=== PATIENT | female | born 1940 | race Caucasian/White ===

== ENCOUNTER 2020-02-13 07:01 | Outpatient (REF) | payer MEDICARE, SELFPAY ==
[2020-02-13 07:47] LABS: MANUAL DIFF FLAG NO
[2020-02-13 07:57] LABS: Basophils Absolute Auto 0.1 X10*3/uL (0.0-0.2); Basophils Percent Auto 0.8 % (0-2); Eosinophils Absolute Auto 0.1 X10*3/uL (0.0-0.4); Eosinophils Percent Auto 1.6 % (0-4); Hematocrit 37.4 % (37-47); Hemoglobin 11.5 g/dl (12.0-16.0); Imm Gran Abs Auto 0.02 X10*3/uL (0.00-0.03); Imm Gran Pct Auto 0.3 % (0.0-0.4); Lymphocytes Absolute Auto 1.9 X10*3/uL (1.2-4.9); Lymphocytes Percent Auto 31.2 % (20-40); Mean Corpuscular HGB Conc 30.7 g/dl (31.0-35.0); Mean Corpuscular Hemoglobin 23.8 pg (27.0-33.0); Mean Corpuscular Volume 77.3 fL (80-98); Monocytes Absolute Auto 0.6 X10*3/uL (0.1-1.2); Monocytes Percent Auto 10.5 % (2-11); Neutrophils Absolute Auto 3.4 X10*3/uL (2.0-8.3); Neutrophils Percent Auto 55.6 % (45-73); Platelet Count 450 X10*3/uL (160-400); Red Blood Count 4.84 X10*6/uL (4.20-5.50); Red Cell Distribution Width 17.9 % (11.0-16.0); White Blood Count 6.1 X10*3/uL (4.8-10.8)
[2020-02-13 08:31] LABS: Alanine Aminotransferase 10 U/L (0-31); Albumin Level 3.8 g/dL (3.5-5.0); Alkaline Phosphatase 82 U/L (39-117); Anion Gap 14 (12-20); Aspartate Amino Transferase 13 U/L (5-31); Bilirubin Total 0.5 mg/dL (0.0-1.0); Blood Urea Nitrogen 23 mg/dL (9-16); Calcium 9.2 mg/dL (8.4-10.2); Carbon Dioxide 28 mmol/L (22-29); Chloride 98 mmol/L (96-108); Cholesterol 210 mg/dL; Estimated Glomerular Filt Rate 57; Glucose Fasting 97 mg/dL (60-99); HDL Cholesterol 68 mg/dL; LDL Cholesterol Calculated 132 mg/dl; Sodium 136 mmol/L (135-145); Total Protein 6.4 g/dL (6.5-8.0); Triglycerides 54 mg/dL
[2020-02-13 09:37] LABS: Estimated Average Glucose 111 mg/dL; Hemoglobin A1c % 5.5 %
== END 2020-02-13 07:02 | disposition home or self-care (01) ==
LOC: HO.LAB 07:01
PROVIDERS: PCP Internal Medicine; Visit Provider Internal Medicine
DX: D72.828 Other elevated white blood cell count (principal); K21.9 Gastro-esophageal reflux disease without esophagitis; I10 Essential (primary) hypertension; R73.09 Other abnormal glucose; Z00.00 Encounter for general adult medical examination without abnormal findings
CPT/HCPCS: 36415; 80053; 80061; 83036; 85025

== ENCOUNTER 2020-04-13 07:45 | Outpatient (REF) | payer MEDICARE, SELFPAY ==
--- NOTE | ~2020-04-13 | MM_ITS ---
EXAMINATION: MM SCREENING DIGITAL BREAST TOMOSYNTHESIS, BILATERAL CLINICAL INFORMATION: Screening. Asymptomatic. The lifetime risk of breast cancer based on the Tyrer-Cuzick Model is 4%. COMPARISON: Mammography: 04/08/2019, 04/06/2018, 03/05/2017 TECHNIQUE: Digital breast tomosynthesis is performed in both the craniocaudal and mediolateral oblique views along with computer-aided detection (CAD). Synthesized 2D images are generated from the tomosynthesis. FINDINGS: There are scattered areas of fibroglandular density (ACR BI-RADS breast composition Category b). There are no significant masses, abnormal calcifications, or other abnormalities. No significant changes from prior exams. MM/MM tomosynthesis screening BI IMPRESSION: No mammographic evidence of malignancy. ASSESSMENT: BI-RADS 1: Negative RECOMMENDATION: Routine annual mammography screening. This patient's information was entered into a reminder system with a target due date for their next mammogram.
== END 2020-04-13 07:46 | disposition home or self-care (01) ==
LOC: HO.MAMMO 07:45
PROVIDERS: PCP Internal Medicine; Visit Provider Internal Medicine
DX: Z12.31 Encounter for screening mammogram for malignant neoplasm of breast (principal)
CPT/HCPCS: 77063; 77067

== ENCOUNTER 2020-09-17 15:06 | Outpatient (REF) | payer MEDICARE, SELFPAY ==
[2020-09-17 15:22] LABS: Glucose Urine UA NEG (NEG); Leukocyte Esterase Urine 3+ (NEG); Nitrite Urine POS (NEG); Specific Gravity - Urine 1.015 (1.005-1.025); Urine Blood TRACE (NEG); Urine Ketones NEG (NEG); Urine Protein NEG (NEG-TRACE)
[2020-09-17 15:23] LABS: Appearance Urine HAZY; Color Urine YELLOW
[2020-09-17 15:36] LABS: Bacteria Urine 3+ /LPF; Mucus Urine 1+ /LPF; RBC Urine 0-2 /HPF (0); Squamous Epithelial Cell Urine 1+ /LPF; WBC Urine 50-75 /HPF (0-4)
== END 2020-09-17 15:07 | disposition home or self-care (01) ==
LOC: HO.LNP 15:06
PROVIDERS: Visit Provider Internal Medicine
DX: N30.00 Acute cystitis without hematuria (principal)
CPT/HCPCS: 81001; 87086; 87088; 87186

== ENCOUNTER 2020-10-01 13:28 | Outpatient (REF) | payer MEDICARE, SELFPAY ==
[2020-10-01 14:15] LABS: Glucose Urine UA NEG (NEG); Leukocyte Esterase Urine 3+ (NEG); Nitrite Urine NEG (NEG); Urine Blood TRACE (NEG); Urine Ketones NEG (NEG); Urine Protein TRACE MG/DL (NEG-TRACE)
[2020-10-01 14:45] LABS: Color Urine YELLOW
[2020-10-01 14:46] LABS: Appearance Urine HAZY
[2020-10-01 15:06] LABS: Bacteria Urine 4+ /LPF; Squamous Epithelial Cell Urine 1+ /LPF; WBC Urine 50-75 /HPF (0-4)
== END 2020-10-01 13:29 | disposition home or self-care (01) ==
LOC: HO.LNP 13:28
PROVIDERS: Visit Provider Internal Medicine
DX: Z51.89 Encounter for other specified aftercare (principal)
CPT/HCPCS: 81001; 87086; 87088; 87186

== ENCOUNTER 2020-10-19 10:49 | Outpatient (REF) | payer MEDICARE, SELFPAY ==
[2020-10-19 11:31] LABS: Glucose Urine UA NEG (NEG); Leukocyte Esterase Urine 3+ (NEG); Nitrite Urine NEG (NEG); PH 7.5 (5.0-8.0); Urine Blood NEG (NEG); Urine Ketones NEG (NEG); Urine Protein NEG (NEG-TRACE)
[2020-10-19 11:44] LABS: Appearance Urine CLEAR; Color Urine COLORLESS
[2020-10-19 12:06] LABS: Bacteria Urine 1+ /LPF; RBC Urine 0 /HPF (0); Squamous Epithelial Cell Urine 3+ /LPF
== END 2020-10-19 10:50 | disposition home or self-care (01) ==
LOC: HO.LNP 10:49
PROVIDERS: Visit Provider Internal Medicine
DX: Z51.89 Encounter for other specified aftercare (principal)
CPT/HCPCS: 81001; 87086

== ENCOUNTER 2020-10-24 14:00 | Outpatient (RCR) | payer MEDICARE, SELFPAY | END 2020-10-24 15:14 | disposition home or self-care (01) | LOC: HO.PTCHIC 14:00 | PROVIDERS: PCP Internal Medicine; Visit Provider Physician Assistant | DX: S86.011D Strain of right Achilles tendon, subsequent encounter (principal) | CPT/HCPCS: 97110; 97112; 97140; 97162 ==

== ENCOUNTER 2020-11-09 10:49 | Outpatient (REF) | payer MEDICARE, SELFPAY ==
--- NOTE | ~2020-11-09 | XR_ITS ---
EXAMINATION: BILATERAL KNEE X-RAY CLINICAL INFORMATION: Pain COMPARISON: Previous exams most recent April 2019 right and August 2016 left TECHNIQUE: 3 views of both knees FINDINGS: Right: There is a right knee replacement. No fracture or dislocation is seen. There is lucency adjacent to the anterior femoral component on the lateral view that appears unchanged. There are small osteophytes at the quadriceps tendon insertion and patellar tendon origin. There are soft tissue ossifications superior to the patella and joint effusion. Left: There is a left knee replacement. No fracture or dislocation is seen. There is question of cystic or erosive change adjacent to the patellar component. There are small osteophytes at the quadriceps tendon insertion patellar tendon origin. There are soft tissue ossifications inferior to the patella. There is a joint effusion. XR/XR knee LT 2V IMPRESSION: Bilateral knee replacements. Right: Stable lucency adjacent to the anterior femoral component seen on the lateral view. Soft tissue ossifications superior to the patella and joint effusion. Left: Question cystic change or lucency adjacent to the patellar component. Soft tissue ossifications inferior to the patella and joint effusion.
--- NOTE | ~2020-11-09 | XR_ITS ---
EXAMINATION: BILATERAL KNEE X-RAY CLINICAL INFORMATION: Pain COMPARISON: Previous exams most recent April 2019 right and August 2016 left TECHNIQUE: 3 views of both knees FINDINGS: Right: There is a right knee replacement. No fracture or dislocation is seen. There is lucency adjacent to the anterior femoral component on the lateral view that appears unchanged. There are small osteophytes at the quadriceps tendon insertion and patellar tendon origin. There are soft tissue ossifications superior to the patella and joint effusion. Left: There is a left knee replacement. No fracture or dislocation is seen. There is question of cystic or erosive change adjacent to the patellar component. There are small osteophytes at the quadriceps tendon insertion patellar tendon origin. There are soft tissue ossifications inferior to the patella. There is a joint effusion. XR/XR knee RT 2V IMPRESSION: Bilateral knee replacements. Right: Stable lucency adjacent to the anterior femoral component seen on the lateral view. Soft tissue ossifications superior to the patella and joint effusion. Left: Question cystic change or lucency adjacent to the patellar component. Soft tissue ossifications inferior to the patella and joint effusion.
--- NOTE | ~2020-11-09 | XR_ITS ---
EXAMINATION: BILATERAL KNEE X-RAY CLINICAL INFORMATION: Pain COMPARISON: Previous exams most recent April 2019 right and August 2016 left TECHNIQUE: 3 views of both knees FINDINGS: Right: There is a right knee replacement. No fracture or dislocation is seen. There is lucency adjacent to the anterior femoral component on the lateral view that appears unchanged. There are small osteophytes at the quadriceps tendon insertion and patellar tendon origin. There are soft tissue ossifications superior to the patella and joint effusion. Left: There is a left knee replacement. No fracture or dislocation is seen. There is question of cystic or erosive change adjacent to the patellar component. There are small osteophytes at the quadriceps tendon insertion patellar tendon origin. There are soft tissue ossifications inferior to the patella. There is a joint effusion. XR/XR knee standing BI IMPRESSION: Bilateral knee replacements. Right: Stable lucency adjacent to the anterior femoral component seen on the lateral view. Soft tissue ossifications superior to the patella and joint effusion. Left: Question cystic change or lucency adjacent to the patellar component. Soft tissue ossifications inferior to the patella and joint effusion.
== END 2020-11-09 10:50 | disposition home or self-care (01) ==
LOC: HO.HOSX 10:49
PROVIDERS: Visit Provider Orthopaedic Surgery
DX: M25.361 Other instability, right knee (principal); M25.362 Other instability, left knee; M25.561 Pain in right knee; M25.562 Pain in left knee
CPT/HCPCS: 73560; 73565; 99212

== ENCOUNTER 2021-01-10 10:00 | Outpatient (RCR) | payer MEDICARE, SELFPAY ==
--- NOTE | 2020-11-20 11:29 | MHC.PT.EP ---
[facility] [place] Office [place] Office [place] Office [address] [phone] F: [phone] F: [phone] F: [phone] F: [phone] Physical Therapy Plan of Care Date of Evaluation: Date of Surgery: Diagnosis: This is a 80 yo female presenting to skilled PT with a script for instability of R knee. Assessment: This is a 80 yo female presenting to skilled PT with a script for instability of R knee. Patient was here recently due to R Achilles rupture. This injury occurred over the summer. She rehabbed well however the initial Achilles injury caused an increase in R knee pain. She has a history of B total knee replacements. Her R knee was done in 2018. She is being followed by [facility] ortho who took x-rays, reported MCL laxity, provided kolby pyle brace and referred to PT for 2 months before following up with them. Pain is located medial knee joint, described as sharp pain. Patient reporting that knee alignment is lateral and her knee hyperextends. Functionally, she reports inability to walk normally, performing stairs with reciprocal gait pattern and needs to use a motorized cart when in the grocery store. Assessment reveals pain that ranges up to a 7/10. She demos decreased R knee ROM, decreased BLE strength, impaired gait pattern with near LOB on a few occasions at eval, impaired joint mobility with excessive tibial ER, tender along ITB and medial knee joint as well as gross functional decline with all weight bearing activities. She is a good candidate for skilled PT 2x/wk for 5wks. Frequency and Duration: The patient will be seen 2x/wk for 5wks Short Term Goals: I in HEP Demo proper squatting techniques without cuing Tolerate walking in grocery store without need to ride the cart Fpc Goals: Report sleeping through the night without waking from knee pain Patient will demo WNL ROM and strength Improve pain to no more than a 2/10 at the worst Perform reciprocal gait on stairs Treatment Plan: Modalities to reduce pain, spasms and effusion. Manual therapy to restore motion and function. Therapeutic exercise to improve strength and flexibility. Neuromuscular re-education for posture and balance. Therapeutic activities to return to functional activities of daily living. Electronically signed by: Patt Casper PT Please sign and return to therapist. Thank you for your referral.
--- NOTE | 2021-01-21 17:11 | MHC.PT.DC ---
[facility] [place] Office [place] Office [place] Office [address] [phone] F: [phone] F: [phone] F: [phone] F: [phone] Physical Therapy Discharge Report Diagnosis: This is a 80 yo female presenting to skilled PT with a script for instability of R knee. Date of Surgery: Date of Evaluation: 11/20/20 Date of Discharge: 01/21/21 Treatments to Date: 12 Cancellations to Date: 0 No Shows to Date: 0 Discharge Status: Independent with HEP Patient Elected to Stop Physician Discontinued Tx Discharge Summary: Patient I in program. Saw ortho due to continuing concerning symptoms. She called and reported impending surgery in April. Hold PT at this time and DC to HEP. Electronically signed by: Patt Casper PT Please sign and return to therapist. Thank you for your referral.
== END 2021-01-21 17:12 | disposition home or self-care (01) ==
LOC: HO.PTCHIC 10:00
PROVIDERS: PCP Internal Medicine; Visit Provider Orthopaedic Surgery
DX: M25.361 Other instability, right knee (principal)
CPT/HCPCS: 97110; 97140; 97162

== ENCOUNTER → 2021-01-17 14:24 | Outpatient (BNVA) | payer MEDICARE, SELFPAY | PROVIDERS: PCP Internal Medicine; Visit Provider Orthopaedic Surgery | DX: M25.369 Other instability, unspecified knee (principal); Z96.651 Presence of right artificial knee joint | CPT/HCPCS: 99212 ==

== ENCOUNTER 2021-02-04 14:42 | Outpatient (REF) | payer MEDICARE, SELFPAY ==
[2021-02-04 15:12] LABS: Appearance Urine CLOUDY; Color Urine ORANGE; Glucose Urine UA NEG (NEG); Leukocyte Esterase Urine 2+ (NEG); Nitrite Urine POS (NEG); PH 6.5 (5.0-8.0); Specific Gravity - Urine 1.015 (1.005-1.025); Urine Blood 1+ (NEG); Urine Ketones NEG (NEG); Urine Protein TRACE MG/DL (NEG-TRACE)
[2021-02-04 15:59] LABS: Bacteria Urine 2+ /LPF; Mucus Urine TRACE /LPF; Squamous Epithelial Cell Urine TRACE /LPF; WBC Clumps Urine NOTED; WBC Urine TNTC /HPF (0-4)
== END 2021-02-04 14:43 | disposition home or self-care (01) ==
LOC: HO.LNP 14:42
PROVIDERS: Visit Provider Internal Medicine
DX: N30.00 Acute cystitis without hematuria (principal)
CPT/HCPCS: 81001; 81003; 87086; 87088; 87186

== ENCOUNTER 2021-02-19 13:51 | Outpatient (REF) | payer MEDICARE, SELFPAY ==
[2021-02-19 14:02] LABS: Appearance Urine HAZY; Color Urine YELLOW; Glucose Urine UA NEG (NEG); Leukocyte Esterase Urine NEG (NEG); Nitrite Urine NEG (NEG); Specific Gravity - Urine 1.015 (1.005-1.025); Urine Blood NEG (NEG); Urine Ketones NEG (NEG); Urine Protein NEG (NEG-TRACE)
== END 2021-02-19 13:52 | disposition home or self-care (01) ==
LOC: HO.LNP 13:51
PROVIDERS: Visit Provider Internal Medicine
DX: R31.9 Hematuria, unspecified (principal)
CPT/HCPCS: 81003; 87086

== ENCOUNTER 2021-03-14 10:37 | Outpatient (REF) | payer MEDICARE, SELFPAY ==
[2021-03-14 10:43] LABS: MANUAL DIFF FLAG NO
[2021-03-14 10:59] LABS: Basophils Percent Auto 0.4 % (0-2); Eosinophils Absolute Auto 0.2 X10*3/uL (0.0-0.4); Eosinophils Percent Auto 2.4 % (0-4); Hematocrit 36.2 % (37.0-47.0); Hemoglobin 11.5 g/dl (12.0-16.0); Imm Gran Abs Auto 0.02 X10*3/uL (0.00-0.03); Imm Gran Pct Auto 0.3 % (0.0-0.4); Lymphocytes Absolute Auto 1.9 X10*3/uL (1.2-4.9); Lymphocytes Percent Auto 28.6 % (20-40); Mean Corpuscular HGB Conc 31.8 g/dl (31.0-35.0); Mean Corpuscular Hemoglobin 24.8 pg (27.0-33.0); Mean Platelet Volume 9.6 fL (9.4-12.3); Monocytes Absolute Auto 0.7 X10*3/uL (0.1-1.2); Monocytes Percent Auto 10.7 % (2-11); Neutrophils Absolute Auto 3.9 x10*3/uL (2.0-8.3); Neutrophils Percent Auto 57.6 % (45-73); Platelet Count 448 X10*3/uL (160-400); Red Blood Count 4.64 X10*6/uL (4.20-5.50); Red Cell Distribution Width 18.4 % (11.0-16.0); White Blood Count 6.7 X10*3/uL (4.8-10.8)
[2021-03-14 11:07] LABS: Estimated Average Glucose 103 mg/dL; Hemoglobin A1c % 5.2 %
[2021-03-14 11:11] LABS: Alanine Aminotransferase 11 U/L (0-31); Albumin Level 3.7 g/dL (3.5-5.0); Alkaline Phosphatase 103 U/L (39-117); Anion Gap 13 (12-20); Aspartate Amino Transferase 16 U/L (5-31); Bilirubin Total 0.3 mg/dL (0.0-1.0); Blood Urea Nitrogen 15 mg/dL (9-16); Calcium 9.2 mg/dL (8.4-10.2); Carbon Dioxide 27 mmol/L (22-29); Chloride 97 mmol/L (96-108); Cholesterol 200 mg/dL; Estimated Glomerular Filt Rate > 60; Glucose Fasting 103 mg/dL (60-99); HDL Cholesterol 65 mg/dL; LDL Cholesterol Calculated 119 mg/dl; Sodium 133 mmol/L (135-145); Total Protein 6.3 g/dL (6.5-8.0); Triglycerides 84 mg/dL
== END 2021-03-14 10:38 | disposition home or self-care (01) ==
LOC: HO.LNP 10:37
PROVIDERS: Visit Provider Internal Medicine
DX: Z00.00 Encounter for general adult medical examination without abnormal findings (principal); I10 Essential (primary) hypertension; R73.09 Other abnormal glucose; D72.828 Other elevated white blood cell count
CPT/HCPCS: 80053; 80061; 83036; 85025

== ENCOUNTER 2021-03-19 14:33 | Outpatient (REF) | payer MEDICARE, SELFPAY ==
[2021-03-19 14:39] LABS: Appearance Urine CLEAR; Color Urine YELLOW; Glucose Urine UA NEG (NEG); Leukocyte Esterase Urine 1+ (NEG); Nitrite Urine NEG (NEG); Specific Gravity - Urine 1.015 (1.005-1.025); Urine Blood NEG (NEG); Urine Ketones NEG (NEG); Urine Protein NEG (NEG-TRACE)
[2021-03-19 14:51] LABS: Bacteria Urine 1+ /LPF; RBC Urine 0 /HPF (0); Squamous Epithelial Cell Urine 3+ /LPF
[2021-03-19 14:52] LABS: Mucus Urine 2+ /LPF
[2021-03-19 15:08] LABS: Iron 31 mcg/dL (30-160); Percent Iron Saturation 7 % (15-50); Total Iron Binding Capacity 419 mcg/dL (228-428); Unsaturated Iron Binding 388 ug/dL
[2021-03-19 15:09] LABS: Creatinine Urine 100.84 mg/dL; Microalbumin Urine < 5.0 mg/L
== END 2021-03-19 14:34 | disposition home or self-care (01) ==
LOC: HO.LNP 14:33
PROVIDERS: Visit Provider Internal Medicine
DX: Z00.00 Encounter for general adult medical examination without abnormal findings (principal); R73.03 Prediabetes; I10 Essential (primary) hypertension; D50.9 Iron deficiency anemia, unspecified
CPT/HCPCS: 81001; 82043; 83540

== ENCOUNTER 2021-04-15 07:29 | Outpatient (REF) | payer MEDICARE, SELFPAY ==
--- NOTE | ~2021-04-15 | MM_ITS ---
EXAMINATION: MM SCREENING DIGITAL BREAST TOMOSYNTHESIS, BILATERAL CLINICAL INFORMATION: Screening. Asymptomatic. The lifetime risk of breast cancer based on the Tyrer-Cuzick Model is 2%. COMPARISON: Mammography: 04/13/2020, 04/08/2019, 04/06/2018 TECHNIQUE: Digital breast tomosynthesis is performed in both the craniocaudal and mediolateral oblique views along with computer-aided detection (CAD). Synthesized 2D images are generated from the tomosynthesis. Additional right CC view is provided. FINDINGS: There are scattered areas of fibroglandular density (ACR BI-RADS breast composition Category b). There are no significant masses, abnormal calcifications, or other abnormalities. Parenchymal pattern is similar to prior studies. There is no developing density or architectural abnormality. The axilla and skin contours are unremarkable. No significant changes. MM/MM tomosynthesis screening BI IMPRESSION: No mammographic evidence of malignancy. ASSESSMENT: BI-RADS 1: Negative RECOMMENDATION: Routine annual mammography screening. This patient's information was entered into a reminder system with a target due date for their next mammogram.
== END 2021-04-15 07:30 | disposition home or self-care (01) ==
LOC: HO.MAMMO 07:29
PROVIDERS: PCP Internal Medicine; Visit Provider Internal Medicine
DX: Z12.31 Encounter for screening mammogram for malignant neoplasm of breast (principal)
CPT/HCPCS: 77063; 77067

== ENCOUNTER → 2021-04-18 13:35 | Outpatient (BNVA) | payer MEDICARE, SELFPAY | PROVIDERS: PCP Internal Medicine; Visit Provider Physician Assistant | DX: Z01.818 Encounter for other preprocedural examination (principal); M25.369 Other instability, unspecified knee; Z96.651 Presence of right artificial knee joint | CPT/HCPCS: 99212 ==

== ENCOUNTER 2021-04-23 10:42 | Inpatient (IN) | payer MEDICARE, SELFPAY ==
[2021-04-12 12:19] VITALS: BP 136/63; PULSE 86; RESP 20; O2SAT 96; BMI 30.1
--- NOTE | 2021-04-12 12:31 | P.CONAN_ITS ---
Documented by User: Jessica Joy NP 04/22/21 11:57 HPI - Anesthesia Eval Consult details Narrative: 81yo F for Right Total Knee Revision PCP cleared Paralyzed vocal cords - voice strained at baseline, aware will worsen post op No Spinal anesthesia d/t hiatal hernia Low Na with PAT 04/12/21. Need PCP comment. (PCP on vacation until 04/22/21) Repeat NA 04/18/21 remains low. PCP addendum to clearance states ok to proceed. Reviewed with Dr Ranulfo DUONG Active Problems Active Problems: All Active Problems (Updated 04/12/21 @ 12:27 by China Bean RN) Instability of knee joint (Acute) Status post right knee replacement (Acute) Past Medical History Medical History COVID-19 vaccine series completed GERD (gastroesophageal reflux disease) Hiatal hernia HTN (hypertension) IBS (irritable bowel syndrome) Migraines Osteoarthritis Paralyzed vocal cords Surgical History Surgical History H/O colonoscopy History of total left knee replacement History of total right knee replacement Hx of cholecystectomy Hx of laparoscopic gastric banding Social History Social History Are you a primary family member caretaker to a significant other at home: No Do you presently have visiting nurse or other home services: No Alcohol intake: current Alcohol intake frequency: does not drink Patient Tobacco Use Status: Former Tobacco user Quit Date: age 30's Tobacco use type: Cigarette Use of substances other than those prescribed or required for medical reasons: No Have you been hit, kicked, punched, or otherwise hurt by someone within the past year? If so, by whom?: No Are you DNR?: No Advance Directives: Yes Advance Directives Information Provided: Yes Advance Directives on File: Yes Advance Directives Date on File: 05/13/16 Recently lost weight without trying: No Eating poorly because of decreased appetite: No Nutrition Risks: Surgical patient >75years Poor oral hygiene: No (full upper & lower dentures) Current occupational status: retired Narrative Narrative: No recent illness NO CP/SOB with minimal activity, limited to pain Meds Allergies Allergy/AdvReac Type Severity Reaction Status Date / Time Penicillins [PENICILLINS] Allergy Severe ANGIOEDEMA Verified 04/18/21 14:09 azithromycin [AZITHROMYCIN] Allergy Intermediate HIVES/RASH/THR USH/FINGERNAIL&TOENAIL Verified 04/18/21 14:09 INFECTION Home Medications Medication Instructions Recorded Confirmed Last Taken Type ibuprofen 800 mg tablet 1 tab PO BID PRN 04/11/21 04/11/21 Unknown History omeprazole 20 mg capsule,delayed 1 cap PO DAILY 04/11/21 04/11/21 Unknown History release oxybutynin chloride 5 mg tablet 1 tab PO DAILY 04/11/21 04/11/21 Unknown History tramadol 50 mg tablet 1 tab PO BID PRN 04/11/21 04/11/21 Unknown History valsartan 80 1 tab PO DAILY 04/11/21 04/11/21 Unknown History mg-hydrochlorothiazide 12.5 mg tablet estradiol 10 mcg vaginal tablet 1 tab VAGINAL 3XW 04/12/21 04/12/21 Unknown History (Yuvafem) hyoscyamine sulfate 0.125 mg 1 tab SUBLINGUAL Q4H PRN 04/12/21 04/12/21 Unknown History sublingual tablet lorazepam 0.5 mg tablet 1 tab PO Q6H PRN 04/12/21 04/12/21 Unknown History magnesium hydroxide 400 mg/5 mL 400 mg PO Q2D 04/12/21 04/12/21 Unknown History oral suspension (Milk of Magnesia) Exam Exam Date and Time: April 12, 2021 1231 Height,Weight and Vital Signs: Height 5 ft 8 in Weight 89.811 kg Last Vital Signs Pulse 86 04/12/21 12:19 Resp 20 04/12/21 12:19 BP 136/63 04/12/21 12:19 Pulse Ox 96 04/12/21 12:19 Narrative Narrative: EKG 03/2020 SR 98 Intra-Atrial conduction delay Airway Mallampati Class: II TM Dist: >3cm Neck ROM: Full Denture: Upper and Lower Heart: RRR Lungs: CTAB Assessment and Plan Assessment Anesthesia Assessment: Anesthesia Plan Discussed and PAT Visit Documented by User: Keshav Gonzalez MD 04/23/21 14:16 [facility] Past Medical History Medical History COVID-19 vaccine series completed GERD (gastroesophageal reflux disease) Hiatal hernia HTN (hypertension) IBS (irritable bowel syndrome) Migraines Osteoarthritis Paralyzed vocal cords Family History Family history of problems with anesthesia: No Surgical History Surgical History H/O colonoscopy History of total left knee replacement History of total right knee replacement Hx of cholecystectomy Hx of laparoscopic gastric banding History of Problems with Anesthesia: No Social History Social History Are you a primary family member caretaker to a significant other at home: No Do you presently have visiting nurse or other home services: No Alcohol intake: current Alcohol intake frequency: does not drink Patient Tobacco Use Status: Former Tobacco user Quit Date: age 31's Tobacco use type: Cigarette Use of substances other than those prescribed or required for medical reasons: No Have you been hit, kicked, punched, or otherwise hurt by someone within the past year? If so, by whom?: No Are you DNR?: No Advance Directives: Yes Advance Directives Information Provided: Yes Advance Directives on File: Yes Advance Directives Date on File: 05/13/16 Recently lost weight without trying: No Eating poorly because of decreased appetite: No Nutrition Risks: Surgical patient >75years Poor oral hygiene: No (full upper & lower dentures) Current occupational status: retired Meds Allergies Allergy/AdvReac Type Severity Reaction Status Date / Time Penicillins [PENICILLINS] Allergy Severe ANGIOEDEMA Verified 04/18/21 14:09 azithromycin [AZITHROMYCIN] Allergy Intermediate HIVES/RASH/THRUSH/FINGERNAIL&TOENAIL Verified 04/18/21 14:09 INFECTION Home Medications Medication Instructions Recorded Confirmed Last Taken Type ibuprofen 800 mg tablet 1 tab PO BID PRN 04/11/21 04/11/21 Unknown History omeprazole 20 mg capsule,delayed 1 cap PO DAILY 04/11/21 04/11/21 Unknown History release oxybutynin chloride 5 mg tablet 1 tab PO DAILY 04/11/21 04/11/21 Unknown History tramadol 50 mg tablet 1 tab PO BID PRN 04/11/21 04/11/21 Unknown History valsartan 80 1 tab PO DAILY 04/11/21 04/11/21 Unknown History mg-hydrochlorothiazide 12.5 mg tablet estradiol 10 mcg vaginal tablet 1 tab VAGINAL 3XW 04/12/21 04/12/21 Unknown History (Yuvafem) hyoscyamine sulfate 0.125 mg 1 tab SUBLINGUAL Q4H PRN 04/12/21 04/12/21 Unknown History sublingual tablet lorazepam 0.5 mg tablet 1 tab PO Q6H PRN 04/12/21 04/12/21 Unknown History magnesium hydroxide 400 mg/5 mL 400 mg PO Q2D 04/12/21 04/12/21 Unknown History oral suspension (Milk of Magnesia) Assessment and Plan Final Anesthetic Review Family History of Problems with Anesthesia: No History of Problems with Anesthesia: No NPO: Yes ASA Class: III Final Preanesthetic Review: No Changes in Pt Med Stat, Meds/Allgs Chart Reviewed, Consent Obtained/Reviewed and Anes Risks/Benef Reviewed Patient Risk: Intermediate Procedure Risk: Intermediate Anesthetic Plan Anesthetic Plan: GA and Regional Block Disposition: Standard PACU
[2021-04-12 13:45] LABS: Hematocrit 33.8 % (37.0-47.0); Hemoglobin 10.6 g/dl (12.0-16.0); Mean Corpuscular HGB Conc 31.4 g/dl (31.0-35.0); Mean Corpuscular Hemoglobin 24.3 pg (27.0-33.0); Mean Corpuscular Volume 77.5 fL (80.0-98.0); Mean Platelet Volume 9.1 fL (9.4-12.3); Platelet Count 374 X10*3/uL (160-400); Red Blood Count 4.36 X10*6/uL (4.20-5.50); Red Cell Distribution Width 20.3 % (11.0-16.0); White Blood Count 7.5 X10*3/uL (4.8-10.8)
[2021-04-12 14:16] LABS: Anion Gap 12 (12-20); Blood Urea Nitrogen 16 mg/dL (9-16); Calcium 9.4 mg/dL (8.4-10.2); Carbon Dioxide 28 mmol/L (22-29); Chloride 93 mmol/L (96-108); Creatinine Clr Calc Pharmacy 64.1; Estimated Glomerular Filt Rate > 60; Glucose Random 87 mg/dL (60-115); Sodium 129 mmol/L (135-145)
[2021-04-12 15:20] LABS: MRSA Nasal PCR NEGATIVE (Negative); SA Nasal PCR NEGATIVE (Negative)
[2021-04-18 14:00] LABS: Anion Gap 12 (12-20); Blood Urea Nitrogen 20 mg/dL (9-16); Calcium 9.9 mg/dL (8.4-10.2); Carbon Dioxide 29 mmol/L (22-29); Chloride 93 mmol/L (96-108); Creatinine Clr Calc Pharmacy 61.9; Estimated Glomerular Filt Rate > 60; Glucose Random 107 mg/dL (60-115); Potassium 4.7 mmol/L (3.3-5.1); Sodium 129 mmol/L (135-145)
[2021-04-23] VITALS (11 sets, daily range): BP systolic 115–166; BP diastolic 56–91; PULSE 72–97; RESP 10–20; TEMP 35.9–37.1; O2SAT 97–100; BMI 29.7
--- NOTE | ~2021-04-23 | XR_ITS ---
EXAMINATION: XR KNEE, RIGHT CLINICAL INFORMATION: Revision right knee replacement COMPARISON: Previous x-ray November 2020 TECHNIQUE: 2 views of the right knee. FINDINGS: There is a 3 component right knee replacement in satisfactory position. No fracture or dislocation is seen. There is new bone loss of the medial femoral condyle adjacent to the prosthesis. Is osteopenia of the medial tibial plateau adjacent to the prosthesis that appears unchanged. There are postsurgical changes to the soft tissues. XR/XR knee RT 2V IMPRESSION: Satisfactory alignment of the right knee replacement. New bone loss of the medial femoral condyle adjacent to the prosthesis.
[2021-04-23 11:12] LABS: COVID-19 Test Negative (Negative)
[2021-04-23] MEDS: Lactated Ringers 1,000 ML 100 ML IVCONT (11:23)
--- NOTE | 2021-04-23 11:59 | MHC.SHP ---
Pre-Procedural Eval Section A Date of Service: 04/23/21 The patient is an INPATIENT: No Changes since office visit: Yes Patient answered all questions; No Cold of Flu in the past 2 weeks, No New Medical Problems and No Changes in Medication The History & Physical has been completed within 30 days and I have reviewed it.: Yes Section B Chief Complaint: revision RT TKA Allergies: Allergies Allergy/AdvReac Type Severity Reaction Status Date / Time Penicillins [PENICILLINS] Allergy Severe ANGIOEDEMA Verified 04/18/21 14:09 azithromycin [AZITHROMYCIN] Allergy Intermediate HIVES/RASH/THRUSH/FINGERNAIL&TOENAIL Verified 04/18/21 14:09 INFECTION Plan I have reviewed the history and physical and performed a pertinent physical examination on my patient. No changes have occurred unless specified.
--- NOTE | 2021-04-23 15:07 | PM.OP ---
Brief Operative Note Date of Service: 04/23/21 Pre-op diagnosis: right kneei nstability Post-op diagnosis: other (right knee aseptic loosening) Procedure: Revision right TKA Implants: Grandy TS Femur #3 with 10 mm medial anterior and medial posterior augments Surgeon: Bruce Cramer MD Anesthesia: GETA and regional Was an Dozer Operator used for this Procedure?: Yes Dozer Operator: Sami Fenton Estimated blood loss (mL): 200 IV fluids (mL): 1,000 Pathology: other Condition: stable Disposition: PACU
[2021-04-23] MEDS: oxyCODONE HCl Immed Release 5 MG TABLET 10 MG PO ×2 (15:24→20:37)
[2021-04-23] MEDS: HYDROmorphone HCl 0.5 MG/0.5 ML SYRINGE 0.25 MG IVPUSH ×2 (15:24→15:29)
[2021-04-23] MEDS: Dextrose 5 % and 0.45 % NaCl 1,000 ML 80 ML IVCONT (15:45)
[2021-04-23] MEDS: Celecoxib 100 MG CAPSULE PO (20:37)
[2021-04-24] VITALS (8 sets, daily range): BP systolic 123–135; BP diastolic 56–71; PULSE 86–98; RESP 18–20; TEMP 36.1–37.1; O2SAT 94–98
[2021-04-24] MEDS: oxyCODONE HCl Immed Release 5 MG TABLET 10 MG PO ×6 (00:38→20:53)
[2021-04-24] MEDS: vancomycin HCL 1,000 MG in 0.9 % Sodium Chloride 250 ML 270 MG IV (00:39)
[2021-04-24] MEDS: 0.9 % Sodium Chloride Flush 3 ML SYRINGE IVFLUSH ×3 (00:39→20:55)
[2021-04-24] MEDS: Dextrose 5 % and 0.45 % NaCl 1,000 ML 80 ML IVCONT ×2 (04:38→20:54)
[2021-04-24 05:48] LABS: MANUAL DIFF FLAG NO
[2021-04-24 05:57] LABS: Basophils Percent Auto 0.1 % (0-2); Eosinophils Percent Auto 0.3 % (0-4); Hematocrit 29.8 % (37.0-47.0); Hemoglobin 9.3 g/dl (12.0-16.0); Imm Gran Abs Auto 0.04 X10*3/uL (0.00-0.03); Imm Gran Pct Auto 0.4 % (0.0-0.4); Lymphocytes Percent Auto 11.5 % (20-40); Mean Corpuscular HGB Conc 31.2 g/dl (31.0-35.0); Mean Corpuscular Hemoglobin 25.1 pg (27.0-33.0); Mean Corpuscular Volume 80.5 fL (80.0-98.0); Mean Platelet Volume 9.2 fL (9.4-12.3); Monocytes Absolute Auto 0.7 X10*3/uL (0.1-1.2); Monocytes Percent Auto 7.4 % (2-11); Neutrophils Absolute Auto 7.3 x10*3/uL (2.0-8.3); Neutrophils Percent Auto 80.3 % (45-73); Platelet Count 332 X10*3/uL (160-400); Red Cell Distribution Width 20.8 % (11.0-16.0); White Blood Count 9.1 X10*3/uL (4.8-10.8)
[2021-04-24 06:16] LABS: Anion Gap 9 (12-20); Blood Urea Nitrogen 15 mg/dL (9-16); Calcium 8.3 mg/dL (8.4-10.2); Carbon Dioxide 26 mmol/L (22-29); Chloride 100 mmol/L (96-108); Creatinine Clr Calc Pharmacy 75.8; Estimated Glomerular Filt Rate > 60; Glucose Fasting 124 mg/dL (60-99); Potassium 3.6 mmol/L (3.3-5.1); Sodium 131 mmol/L (135-145)
--- NOTE | 2021-04-24 07:43 | PM.PNORT ---
Subjective Subjective Date of Service: 04/24/21 Interval history: POD1 s/p revision RTKA. Patient was walking with PT from the bathroom to the chair. No overnight events. Pain is managed. No additional complaints. Physical Exam Vital Signs: Vital Signs: Last Vital Signs Temp 97 F 04/24/21 07:07 Pulse 90 04/24/21 07:07 Resp 19 04/24/21 07:07 BP 123/56 L 04/24/21 07:07 Pulse Ox 98 04/24/21 07:07 BMI result Body Mass Index 29.7 Const: General: cooperative, healthy appearing and no acute distress Resp: Effort & Inspection: normal respiratory effort and able to speak in complete sentences Cardio: Rate: regular rate Peripheral pulses: Peripheral pulses 2+ throughout GI: Palpation (GI): Soft to palpation Skin: Lesions: no lesions Rashes: no rashes Extrem: Other: Right knee Aquacel dressing is clean, dry, and intact. NVI. Procedures Date of Service Date of Service: 04/24/21 Progress Note: A&P Assessment and plan (1) Status post revision of total replacement of right knee: Status: Acute Assessment and Plan: Continue pain mgmnt Begin ASA for dvt ppx begin PT for RTKA revision Dispo planning-Pending PT eval, pain mgmnt Fall Risk Details Current Medications: Current Medications Acetaminophen (Acetaminophen 325 Mg Tablet) 650 mg PO Q6H PRN PRN Reason: Pain, Mild (Pain Scale 1-3) Aspirin (Aspirin 325 Mg Tablet) 325 mg PO BID [facility] Celecoxib (Celecoxib 100 Mg Capsule) 100 mg PO BID [facility] Last Admin: 04/23/21 20:37 Dose: 100 mg Documented by: Hydromorphone HCl (Hydromorphone Hcl 1 Mg/Ml Syringe) 0.25 mg IVPUSH Q4H PRN; Protocol PRN Reason: Pain, Severe (Pain Scale 7-10) Dextrose/Sodium Chloride (D51/2ns) 1,000 mls @ 80 mls/hr IVCONT .[id number] [facility] Last Admin: 04/24/21 04:38 Dose: 80 mls/hr Documented by: Ondansetron HCl (Ondansetron Hcl 4 Mg/2 Ml Vial) 4 mg IVPUSH Q8H PRN PRN Reason: Nausea and Vomiting Oxycodone HCl (Oxycodone Hcl Immed Release 5 Mg Tablet) 10 mg PO Q4H [facility] Last Admin: 04/24/21 04:31 Dose: 10 mg Documented by: Senna (Sennosides 8.6 Mg Tablet) 17.2 mg PO BEDTIME PRN PRN Reason: Constipation Sodium Chloride (0.9 % Sodium Chloride Flush 3 Ml Syringe) 3 ml IVFLUSH QSHIFT [facility] Last Admin: 04/24/21 00:39 Dose: 3 ml Documented by: Time Spent With Patient Time: Total time spent is greater than 50% in coordination of care (as documented) at patient's floor/unit and/or counseling patient: Time with patient: less than 15 minutes Quality Stroke Does the patient have a stroke diagnosis?: No VTE Prior VTE?: No VTE Risk Level:: Surgical - very high VTE Device Contraindication: N/A - Device Ordered VTE Drug Contraindication: N/A - Med Ordered
--- NOTE | 2021-04-24 08:04 | HO.POSTANES ---
Post Anesthesia Evaluation Post Anesthesia Evaluation Vital Signs: Vital Signs Temp Pulse Resp BP Pulse Ox 04/24/21 07:44 90 123/56 L 98 04/24/21 07:07 97 F 90 19 123/56 L 98 04/24/21 04:00 97 F 86 18 132/56 L 96 04/24/21 00:00 96.9 F 91 18 135/71 94 Anesthesia: Spinal and Nerve Block Mental Status: Awake Pain Control: Satisfactory Nausea/Vomiting: None Hydration: Adequate Anesthesia-Related Issues: No Anes. Related Issues
[2021-04-24] MEDS: Celecoxib 100 MG CAPSULE PO ×2 (08:23→20:54)
--- NOTE | 2021-04-24 09:23 | P.OP_ITS ---
Operative Note Operative Note Date of Service: 04/23/21 Narrative: Date of Service: 04/23/21 Pre-op diagnosis: right kneei nstability Post-op diagnosis: other (right knee aseptic loosening) Procedure: Revision right TKA Implants: Guera TS Femur #3 with 10 mm medial anterior and medial posterior augments Surgeon: Bruce Cramer MD Anesthesia: GETA and regional Was an Health Care Marketing Specialist used for this Procedure?: Yes Health Care Marketing Specialist: Sami Fenton Estimated blood loss (mL): 200 IV fluids (mL): 1,000 Pathology: other Condition: stable Disposition: PACU Procedure in detail: The patient was brought to the operating room and prepped and draped in standard sterile fashion. A time-out was called to identify proper site proper procedure proper surgeon and IV antibiotics were administered. 1 g of IV tranexamic acid was administered. I began by making a midline incision (through the prior insicion) to the retinaculum and performed a medial parapatellar arthrotomy. The patella was translated laterally and the knee was flexed up. and immediately evident was an abnormality on the superior aspect of the polyethylene post. The prosthesis was grossly loose along the medial femoral condyle. I cut out the post with a sagittal saw then removed the polyethylene insert. The femur then removed was removed easily with no additional bone loss. There was bone loss along the medial femoral condyle but not the lateral. I placed a extension block provisionally and assess the MCL. It was stable. I assessed the tibial component which was well fixed. There was no fluid collection or neck chronic debris or any evidence of infection. Therefore I elected to place a total stabilized femoral component. A 16 mm Reamer was used to open up the canal and my distal femoral cutting block was used. Using the medial epicondyles for reference a made my distal femoral cut measuring a 10 mm distal augment over the medial femoral condyle. I then placed my cutting block using a 4. And made my clean-up cuts. A 10 mm posterior medial augment was measured. No additional augmentation was required. I made my box cut and then provisionally placed a TS femur with 10 mm distal and posterior augments. Using a 16 mm trial I took the knee through range of motion. The knee was balanced with collateral ligaments stable and excellent patellofemoral tracking. All instrumentation was then removed copious irrigation was performed. Two bags of Palacos cement was mixed on the back table and the femur was assembled. This was then cemented in place in standard fashion while applying axial compression. Once the cement was dry all excess cement was removed and I took the knee through range of motion with different trials. Ultimately I selected a 16 mm TS insert. My final insert was placed and a 3 minute iodine soak with local TXA was performed. The knee was then closed with a running Quill suture, a 3 0 Vicryl and jules on the skin. Patient was then placed in sterile dressing and brought to recovery room in stable condition there were no known complications.
--- NOTE | 2021-04-24 10:12 | MHC.CM.PN ---
IMM 04/24/21, EMR REVIEWWED, PT ADMITTED S/P REVISION ON R TKA, CM MET W/PT WHO IS A&OX4, PT REPORTS SHE LIVES W/HER AND GRANDSON RESIDES IN AN INLAW AT ATTACHED TO HOUSE, PT REPORTS SHE IS INDEP W/CARE AT BASELINE, HAS A ROLLATER WALKER AND NO HOME SERVICES, PT VERIFIES PCP IS CHRISTINA LOPEZ, HCP IS SHERICE MILNER [phone] AND COPY ON FILE FROM PREVIOUS ADMISSION, PT REPORTS SHE IS FULLY VACCINATED FOR COVID. D/C PLAN: HOME W/[facility] FOR PT AND [facility] FOR TRANSPORT. MODERNA VACCINE: 04/10/20, 05/08/20 AND 01/01/21.
[2021-04-24] MEDS: Aspirin 325 MG TABLET PO ×2 (14:42→20:53)
--- NOTE | 2021-04-24 17:01 | HO.PM.IMCN ---
History of Present Illness Data of Consult Service Date: 04/24/21 Primary Care Provider: Red Sexton MD HPI 81 year female with HTN, IBS and other history as listed below. She had revision of right TKR on 04/23/21 and is doing just fine post op and has no acute medical issues and is looking forward to going home tomorrow. 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 Hx of cholecystectomy Hx of laparoscopic gastric banding Social History Household Members: Spouse Housing: House Are you a primary healthcare associate to a significant other at home: No Do you presently have visiting nurse or other home services: No Alcohol intake: current Alcohol intake frequency: does not drink Patient Tobacco Use Status: Former Tobacco user Quit Date: age 30's Tobacco use type: Cigarette Advance Directives Date on File: 05/13/16 service: No Current occupational status: retired Meds Allergies Allergy/AdvReac Type Severity Reaction Status Date / Time Penicillins [PENICILLINS] Allergy Severe ANGIOEDEMA Verified 04/18/21 14:09 azithromycin [AZITHROMYCIN] Allergy Intermediate HIVES/RASH/THRUSH/FINGERNAIL&TOENAIL Verified 04/18/21 14:09 INFECTION Active Medications: Current Medications Acetaminophen (Acetaminophen 325 Mg Tablet) 650 mg PO Q6H PRN PRN Reason: Pain, Mild (Pain Scale 1-3) Aspirin (Aspirin 325 Mg Tablet) 325 mg PO BID [facility] Last Admin: 04/24/21 14:42 Dose: 325 mg Documented by: Celecoxib (Celecoxib 100 Mg Capsule) 100 mg PO BID [facility] Last Admin: 04/24/21 08:23 Dose: 100 mg Documented by: Hydromorphone HCl (Hydromorphone Hcl 1 Mg/Ml Syringe) 0.25 mg IVPUSH Q4H PRN; Protocol PRN Reason: Pain, Severe (Pain Scale 7-10) Dextrose/Sodium Chloride (D51/2ns) 1,000 mls @ 80 mls/hr IVCONT .[id number] [facility] Last Admin: 04/24/21 04:38 Dose: 80 mls/hr Documented by: Ondansetron HCl (Ondansetron Hcl 4 Mg/2 Ml Vial) 4 mg IVPUSH Q8H PRN PRN Reason: Nausea and Vomiting Oxycodone HCl (Oxycodone Hcl Immed Release 5 Mg Tablet) 10 mg PO Q4H [facility] Last Admin: 04/24/21 16:23 Dose: 10 mg Documented by: Senna (Sennosides 8.6 Mg Tablet) 17.2 mg PO BEDTIME PRN PRN Reason: Constipation Sodium Chloride (0.9 % Sodium Chloride Flush 3 Ml Syringe) 3 ml IVFLUSH QSHIFT [facility] Last Admin: 04/24/21 16:23 Dose: 3 ml Documented by: Home Medications Medication Instructions Recorded Confirmed Last Taken Type ibuprofen 800 mg tablet 1 tab PO BID PRN 04/11/21 04/11/21 Unknown History omeprazole 20 mg capsule,delayed 1 cap PO DAILY 04/11/21 04/11/21 Unknown History release oxybutynin chloride 5 mg tablet 1 tab PO DAILY 04/11/21 04/11/21 Unknown History tramadol 50 mg tablet 1 tab PO BID PRN 04/11/21 04/11/21 Unknown History valsartan 80 1 tab PO DAILY 04/11/21 04/11/21 Unknown History mg-hydrochlorothiazide 12.5 mg tablet estradiol 10 mcg vaginal tablet 1 tab VAGINAL 3XW 04/12/21 04/12/21 Unknown History (Yuvafem) hyoscyamine sulfate 0.125 mg 1 tab SUBLINGUAL Q4H PRN 04/12/21 04/12/21 Unknown History sublingual tablet lorazepam 0.5 mg tablet 1 tab PO Q6H PRN 04/12/21 04/12/21 Unknown History magnesium hydroxide 400 mg/5 mL 400 mg PO Q2D 04/12/21 04/12/21 Unknown History oral suspension (Milk of Magnesia) Physical Exam Vital Signs and Narrative: Vital Signs: Last Vital Signs Temp 98.8 F 04/24/21 16:00 Pulse 94 04/24/21 16:00 Resp 18 04/24/21 16:00 BP 128/60 04/24/21 16:00 Pulse Ox 98 04/24/21 16:00 BMI result Body Mass Index 29.7 Const: Other: General: AO X 3, no acute distress Resp: CTA bilateral CVS: S1,S2,RRR GI: +BS, NT, no distention Skin: No rash Neuro: motor grossly intact Psych: appropriate affect Results Labs CBC and Chem 7: 04/24/21 05:31 04/24/21 05:31 Labs: Laboratory Results - last 24 hr 04/24/21 04/24/21 05:31 05:31 MCV 80.5 MCH 25.1 L MCHC 31.2 RDW 20.8 H Plt Count 332 MPV 9.2 L Immature Gran % (Auto) 0.4 Neut % (Auto) 80.3 H Lymph % (Auto) 11.5 L [place] % (Auto) 7.4 Eos % (Auto) 0.3 Baso % (Auto) 0.1 Lymph # (Auto) 1.0 L [place] # (Auto) 0.7 Eos # (Auto) 0.0 Baso # (Auto) 0.0 Abs Immat Gran (auto) 0.04 H Absolute Neuts (auto) 7.3 Absolute Nucleated RBC 0.000 Nucleated RBC % (auto) 0.0 Anion Gap 9 L Estim Creat Clear Calc 75.8 Estimated GFR > 60 Fasting Glucose 124 H Calcium 8.3 L D Assessment and Plan (1) HTN (hypertension): Status: Acute Plan 81 year female with HTN, IBS and other history as listed below. She had revision of right TKR on 04/23/21 and is doing just fine post op and has no acute medical issues and is looking forward to going home tomorrow HTN-resume Valsartan/HCTZ s/p revision of TKR--management per ortho continue all other medication per med rec
[2021-04-25] VITALS: BP 130/57; PULSE 100; RESP 17; TEMP 36.2; O2SAT 96
[2021-04-25] MEDS: oxyCODONE HCl Immed Release 5 MG TABLET 10 MG PO ×3 (00:04→07:30)
[2021-04-25 03:34] VITALS: BP 116/57; PULSE 86; RESP 17; TEMP 36.1; O2SAT 97
[2021-04-25 04:55] LABS: MANUAL DIFF FLAG NO
[2021-04-25 05:03] LABS: Basophils Percent Auto 0.5 % (0-2); Eosinophils Absolute Auto 0.3 X10*3/uL (0.0-0.4); Eosinophils Percent Auto 3.9 % (0-4); Hematocrit 28.4 % (37.0-47.0); Hemoglobin 9.1 g/dl (12.0-16.0); Imm Gran Abs Auto 0.04 X10*3/uL (0.00-0.03); Imm Gran Pct Auto 0.5 % (0.0-0.4); Lymphocytes Absolute Auto 1.1 X10*3/uL (1.2-4.9); Lymphocytes Percent Auto 15.3 % (20-40); Mean Corpuscular Hemoglobin 25.9 pg (27.0-33.0); Mean Corpuscular Volume 80.7 fL (80.0-98.0); Mean Platelet Volume 9.4 fL (9.4-12.3); Monocytes Absolute Auto 0.7 X10*3/uL (0.1-1.2); Monocytes Percent Auto 9.4 % (2-11); Neutrophils Absolute Auto 5.2 x10*3/uL (2.0-8.3); Neutrophils Percent Auto 70.4 % (45-73); Platelet Count 313 X10*3/uL (160-400); Red Blood Count 3.52 X10*6/uL (4.20-5.50); Red Cell Distribution Width 21.2 % (11.0-16.0); White Blood Count 7.5 X10*3/uL (4.8-10.8)
[2021-04-25 05:15] LABS: Anion Gap 10 (12-20); Blood Urea Nitrogen 11 mg/dL (9-16); Carbon Dioxide 24 mmol/L (22-29); Chloride 100 mmol/L (96-108); Creatinine Clr Calc Pharmacy 75.8; Estimated Glomerular Filt Rate > 60; Glucose Fasting 110 mg/dL (60-99); Potassium 3.6 mmol/L (3.3-5.1); Sodium 130 mmol/L (135-145)
[2021-04-25] MEDS: Omeprazole 20 MG CAPSULE.DR PO (06:07)
[2021-04-25 07:00] VITALS: BP 140/68; PULSE 97; RESP 18; TEMP 36; O2SAT 97
[2021-04-25] MEDS: 0.9 % Sodium Chloride Flush 3 ML SYRINGE IVFLUSH (07:30)
--- NOTE | 2021-04-25 08:32 | PM.DS ---
DS: Providers Provider Date of Service: 04/25/21 Date of admission: 04/23/21 10:42 Primary care physician: Red Sexton MD Consults: 04/23/21 16:36 Consult to Hospitalist Routine Consulting Provider: Hospitalist Reason For Exam: post op mgmnt DS: Diagnosis Discharge Diagnosis (1) HTN (hypertension): Status: Acute DS: Summary Hospital Course Hospital Course: The patient underwent a successful revision right total knee arthroplasty, they were transferred to PACU and then to the floor to recover. During their stay, their vitals were stable, afebrile at 96.8. Labs were unremarkable, H/H 9.1/28.4. POD 1 they were started on Aspirin 325mg po bid for DVT ppx, they also received Physical Therapy services twice a day. Prior to discharge, their dressing was changed, incision clean dry and intact, new Aquacel dressing applied and the plan was to be discharged home with VNA services. Time Spent with Patient Time attestation: Total time spent providing and/or coordinating discharge services: Discharge coordination time: Less than 30 minutes Quality: Stroke Does the patient have a stroke diagnosis?: No Physical Exam Vital Signs: Vital Signs: Last Vital Signs Temp 96.8 F 04/25/21 07:00 Pulse 97 04/25/21 07:00 Resp 18 04/25/21 07:00 BP 140/68 H 04/25/21 07:00 Pulse Ox 97 04/25/21 07:00 BMI result Body Mass Index 29.7 Extrem: Other: Right knee Aquacel is clean, dry, and intact. Patient is able to flex and extend. NVI. DS: Data Data Completed and Pending Labs on day of discharge: Laboratory Results - last 24 hr 04/25/21 04/25/21 03:57 03:57 WBC 7.5 RBC 3.52 L Hgb 9.1 L Hct 28.4 L MCV 80.7 MCH 25.9 L MCHC 32.0 RDW 21.2 H Plt Count 313 MPV 9.4 Immature Gran % (Auto) 0.5 H Neut % (Auto) 70.4 Lymph % (Auto) 15.3 L [place] % (Auto) 9.4 Eos % (Auto) 3.9 Baso % (Auto) 0.5 Lymph # (Auto) 1.1 L [place] # (Auto) 0.7 Eos # (Auto) 0.3 Baso # (Auto) 0.0 Abs Immat Gran (auto) 0.04 H Absolute Neuts (auto) 5.2 Absolute Nucleated RBC 0.000 Nucleated RBC % (auto) 0.0 Sodium 130 L Potassium 3.6 Chloride 100 Carbon Dioxide 24 Anion Gap 10 L BUN 11 Creatinine 0.69 Estim Creat Clear Calc 75.8 Estimated GFR > 60 Fasting Glucose 110 H Calcium 8.0 L Discharge Plan Discharge Patient Disposition: Home Health Service Discharge Diagnosis: s/p revision RTKA Referrals: Sami Fenton, VERNELL [Physician Shipping Checker] - 1 Week (05/09/21 at 12:30) Discharge Medications: New acetaminophen 325 mg Tablet 650 mg PO Q6H PRN (Reason: Pain, Mild (Pain Scale 1-3)) 30 Days Qty: 240 0RF aspirin 325 mg Tablet 325 mg PO BID 42 Days Qty: 84 0RF celecoxib 100 mg Capsule 100 mg PO BID 30 Days Qty: 60 0RF oxycodone 10 mg tablet 10 mg PO Q4H 7 Days Qty: 42 0RF sennosides [Senna Lax] 8.6 mg Tablet 17.2 mg PO BEDTIME PRN (Reason: Constipation) 30 Days Qty: 60 0RF Continued valsartan-hydrochlorothiazide 80-12.5 mg tablet 1 tab PO DAILY 0RF omeprazole 20 mg capsule,delayed release(DR/EC) 1 cap PO DAILY 0RF oxybutynin chloride 5 mg tablet 1 tab PO DAILY 0RF lorazepam 0.5 mg tablet 1 tab PO Q6H PRN (Reason: Anxiety) 0RF magnesium hydroxide [Milk of Magnesia] 400 mg/5 mL Suspension 400 mg PO Q2D 0RF Rx Instructions: works the best for constipation for this patient estradiol [Yuvafem] 10 mcg tablet 1 tab vaginal 3XW 0RF hyoscyamine sulfate 0.125 mg tablet, sublingual 1 tab sublingual Q4H PRN (Reason: Constipation) 0RF Discontinued ibuprofen 800 mg tablet 1 tab PO BID PRN (Reason: Pain) 0RF tramadol 50 mg tablet 1 tab PO BID PRN (Reason: Pain) 0RF Discharge Orders: Discharge Order (Routine); Ordered 04/25/21 Ordered By: Elsy Tom Diet: advance to usual diet Activity on Discharge: Use cane or walker Stand Alone Forms: Patient Portal Discharge page Care Plan Goals: Physical Therapy for ROM 0-120, quad strength, gait training. Use walker for ambulation Limit stair climbing, No shower, No tub bath, No driving Continue anticoagulant Keep Aquacel dressing clean, dry and intact. Follow up with orthopedics in 2 weeks Health Concerns: none Plan of Treatment: restore fxn to right knee Assessment: stable for d/c
--- NOTE | 2021-04-25 08:36 | W.MHC.F2F ---
Service Date Service Date: 04/25/21 Encounter Date of encounter: 04/25/21 Reasons for Services Signs and symptoms assessed: Right total knee-pain and swelling, weakness. Reason for physical therapy: home safety and mobility, therapeutic exercises, restore joint function, gait/transfer training, ADL training and energy conservation Reason for occupational therapy: home safety and mobility, therapeutic exercises, restore joint function, gait/transfer training, ADL training and energy conservation MD Overseeing Care: Bruce Cramer Homebound: Leaving the home is medically contraindicated at this time without the asist of a device and/or another person due th the listed conditions above and below. Reason homebound: unsteady gait / fall risk, pain with ambulation, pain with transfers, poor balance / fall risk and unable to drive Homebound supporting statement: Pt. is considered home bound due to recent surgery. Unable to drive, poor balance, poor gait mechanics. Certification: Based on the above findings, I certify that this patient is confined to the home and needs intermittent fpc care, physical therapy and/or speech therapy, or continues to need occupational therapy. The patient is under my care, and I have initiated the establishment of the plan of care. The patient will be followed by a physician who will periodically review the plan of care.
[2021-04-25] MEDS: hydroCHLOROthiazide 12.5 MG TABLET PO (08:43)
[2021-04-25] MEDS: Aspirin 325 MG TABLET PO (08:43)
[2021-04-25] MEDS: Valsartan 80 MG TABLET PO (08:43)
[2021-04-25] MEDS: Celecoxib 100 MG CAPSULE PO (08:43)
[2021-04-25 08:44] VITALS: BP 140/68; PULSE 97; O2SAT 97
[2021-04-25] MEDS: Milk of Magnesia 30 ML ORAL.SUSP 5 ML PO (09:26)
--- NOTE | 2021-04-25 09:35 | W.MHC.F2F ---
Service Date Service Date: 04/25/21 Encounter Date of encounter: 04/25/21 Reasons for Services Signs and symptoms assessed: Pt. is considered homebound due to recent surgery. Unable to drive, poor balance, poor gait mechanics. Reason for nursing home: wound care Reason for physical therapy: home safety and mobility, therapeutic exercises, restore joint function, gait/transfer training, assess need for DME and ADL training Reason for occupational therapy: home safety and mobility, therapeutic exercises, restore joint function, gait/transfer training, assess need for DME and ADL training Homebound: Leaving the home is medically contraindicated at this time without the asist of a device and/or another person due th the listed conditions above and below. Reason homebound: unsteady gait / fall risk, leg weakness, pain with ambulation, pain with transfers, poor balance / fall risk and unable to drive Homebound supporting statement: Pt. is considered homebound due to recent surgery. Unable to drive, poor balance, poor gait mechanics. Certification: Based on the above findings, I certify that this patient is confined to the home and needs intermittent nursing home care, physical therapy and/or speech therapy, or continues to need occupational therapy. The patient is under my care, and I have initiated the establishment of the plan of care. The patient will be followed by a physician who will periodically review the plan of care.
--- NOTE | 2021-04-25 09:51 | MHC.CM.PN ---
NURSE CASE MANGEMENT NOTE ELECTRONIC MEDICAL RECORD REVIEWED ALONG WITH CASE DISCUSED WITH STAFF NURSE AND ORTHOPEDIC SURGICAL PA PATIENT WILL BE DISCHARGED HOME TODAY WITH NEW REFERRAL TO THE [facility]. DISCHARGE PLAN HOME WITH [facility] FOR HOME PT- CONFIRMED START DATE WITH [facility] FOR 04/26/[address] CHRISTINA TAYLOR INSTRUCTYED TO CALL FOR [facility] DISCHARGE FOLLOW UP TRANSPORTATION [facility] CALLED TO [facility] LISTED UNDER ADMISSION CONTACTS HE CONFIRMED THAT HE WILL TRANSPORT PATIENT UPON DISCHARGE OETHOPPEDIC SURGICAL FOLLOW UP PER DISCHARGE INSTRUCTIONS
--- NOTE | 2021-04-25 10:34 | P.PNIM_ITS ---
Subjective Subjective Date of Service: 04/25/21 Interval History: f/u on med management, doing well no issues Review of Systems no pain no fever Physical Exam Vital Signs: Vital Signs: Last Vital Signs Temp 96.8 F 04/25/21 07:00 Pulse 97 04/25/21 08:44 Resp 18 04/25/21 07:00 BP 140/68 H 04/25/21 08:44 Pulse Ox 97 04/25/21 08:44 BMI result Body Mass Index 29.7 Const: Other: General: AO X 3, no acute distress Resp: CTA bilateral CVS: S1,S2,RRR GI: +BS, NT, no distention Skin: No rash Neuro: motor grossly intact Psych: appropriate affect Objective Data Active Medications Acetaminophen (Acetaminophen 325 Mg Tablet) 650 mg PO Q6H PRN PRN Reason: Pain, Mild (Pain Scale 1-3) Aspirin (Aspirin 325 Mg Tablet) 325 mg PO BID [facility] Last Admin: 04/25/21 08:43 Dose: 325 mg Documented by: TYSON Celecoxib (Celecoxib 100 Mg Capsule) 100 mg PO BID [facility] Last Admin: 04/25/21 08:43 Dose: 100 mg Documented by: TYSON Hydrochlorothiazide (Hydrochlorothiazide 12.5 Mg Tablet) 12.5 mg PO DAILY [facility] Last Admin: 04/25/21 08:43 Dose: 12.5 mg Documented by: TYSON Hydromorphone HCl (Hydromorphone Hcl 1 Mg/Ml Syringe) 0.25 mg IVPUSH Q4H PRN; Protocol PRN Reason: Pain, Severe (Pain Scale 7-10) Dextrose/Sodium Chloride (D51/2ns) 1,000 mls @ 80 mls/hr IVCONT .[id number] [facility] Last Infusion: 04/25/21 09:31 Dose: 0 mls/hr Documented by: TYSON Lorazepam (Lorazepam 0.5 Mg Tablet) 0.5 mg PO Q6H PRN PRN Reason: Anxiety Magnesium Hydroxide (Milk Of Magnesia 30 Ml Oral.Susp) 5 ml PO Q2D [facility] Last Admin: 04/25/21 09:26 Dose: 5 ml Documented by: TYSON Non-Formulary Medication (Estradiol [Yuvafem]) 1 tab VAGINAL 3XW [facility] Omeprazole (Omeprazole 20 Mg Capsule.) 20 mg PO DAILY@0630 [facility] Last Admin: 04/25/21 06:07 Dose: 20 mg Documented by: KESHAV Ondansetron HCl (Ondansetron Hcl 4 Mg/2 Ml Vial) 4 mg IVPUSH Q8H PRN PRN Reason: Nausea and Vomiting Oxybutynin Chloride (Oxybutynin Chloride Er 5 Mg Tab.Er.24) 5 mg PO DAILY [facility] Last Admin: 04/25/21 08:43 Dose: 5 mg Documented by: TYSON Oxycodone HCl (Oxycodone Hcl Immed Release 5 Mg Tablet) 10 mg PO Q4H [facility] Last Admin: 04/25/21 07:30 Dose: 10 mg Documented by: TYSON Senna (Sennosides 8.6 Mg Tablet) 17.2 mg PO BEDTIME PRN PRN Reason: Constipation Sodium Chloride (0.9 % Sodium Chloride Flush 3 Ml Syringe) 3 ml IVFLUSH QSHIFT [facility] Last Admin: 04/25/21 07:30 Dose: 3 ml Documented by: TYSON Valsartan (Valsartan 80 Mg Tablet) 80 mg PO DAILY [facility] Last Admin: 04/25/21 08:43 Dose: 80 mg Documented by: TYSON Labs CBC & Chem 7: 04/25/21 03:57 04/25/21 03:57 Labs: Laboratory Results - last 24 hr 04/25/21 04/25/21 03:57 03:57 MCV 80.7 MCH 25.9 L MCHC 32.0 RDW 21.2 H Plt Count 313 MPV 9.4 Immature Gran % (Auto) 0.5 H Neut % (Auto) 70.4 Lymph % (Auto) 15.3 L [place] % (Auto) 9.4 Eos % (Auto) 3.9 Baso % (Auto) 0.5 Lymph # (Auto) 1.1 L [place] # (Auto) 0.7 Eos # (Auto) 0.3 Baso # (Auto) 0.0 Abs Immat Gran (auto) 0.04 H Absolute Neuts (auto) 5.2 Absolute Nucleated RBC 0.000 Nucleated RBC % (auto) 0.0 Anion Gap 10 L Estim Creat Clear Calc 75.8 Estimated GFR > 60 Fasting Glucose 110 H Calcium 8.0 L Assessment and Plan (1) HTN (hypertension): Status: Acute Plan 81 year female with HTN, IBS and other history as listed below. She had revision of right TKR on 04/23/21 and is doing just fine post op and has no acute medical issues and is looking forward to going home tomorrow HTN- continu eValsartan/HCTZ s/p revision of TKR--management per ortho continue all other medications from home Quality Stroke Does the patient have a stroke diagnosis?: No VTE Prior VTE?: No VTE Risk Level:: Surgical - very high VTE Device Contraindication: N/A - Device Ordered VTE Drug Contraindication: N/A - Med Ordered
== END 2021-04-25 10:46 | disposition home health service (06) | DRG 468 ==
LOC: HO.SSSA 11:10 → HO.S3 11:40
PROVIDERS: Nurse Practitioner; Physician Assistant; Admitting Provider Orthopaedic Surgery; PCP Internal Medicine; Visit Provider Orthopaedic Surgery
PROC: 0SPC0LZ Removal of Medial Unicondylar Synthetic Substitute from Right Knee Joint, Open Approach (ICD-10-PCS; CPT 27487; principal; 2021-04-23 11:30)
DX: T84.032A Mechanical loosening of internal right knee prosthetic joint, initial encounter (principal); I10 Essential (primary) hypertension; K21.9 Gastro-esophageal reflux disease without esophagitis; Z20.822 Contact with and (suspected) exposure to COVID-19; Z88.0 Allergy status to penicillin; Z79.899 Other long term (current) drug therapy
CPT/HCPCS: 36415; 73560; 80048; 85025; 85027; 86850; 86900; 86901; 87635; 87640; 87641; 97110; 97116; 97162; C1713; C1776; J0131; J0330; J0690; J1100; J1170; J2250; J2405; J3010; J3370

== ENCOUNTER → 2021-05-09 12:15 | Outpatient (BNVA) | payer MEDICARE, SELFPAY | PROVIDERS: PCP Internal Medicine; Visit Provider Physician Assistant | DX: Z47.1 Aftercare following joint replacement surgery (principal); Z96.651 Presence of right artificial knee joint | CPT/HCPCS: 99212 ==

== ENCOUNTER → 2021-06-06 14:35 | Outpatient (BNVA) | payer MEDICARE, SELFPAY | PROVIDERS: PCP Internal Medicine; Visit Provider Physician Assistant | DX: Z47.1 Aftercare following joint replacement surgery (principal); Z96.651 Presence of right artificial knee joint | CPT/HCPCS: 99212 ==

== ENCOUNTER 2021-06-18 15:23 | Outpatient (REF) | payer MEDICARE, SELFPAY ==
[2021-06-18 15:31] LABS: Appearance Urine TURBID; Color Urine YELLOW; Glucose Urine UA NEG (NEG); Leukocyte Esterase Urine 2+ (NEG); Nitrite Urine POS (NEG); Urine Blood 1+ (NEG); Urine Ketones NEG (NEG); Urine Protein 1+ MG/DL (NEG-TRACE)
[2021-06-18 15:47] LABS: Bacteria Urine 4+ /LPF; Squamous Epithelial Cell Urine 3+ /LPF; WBC Urine TNTC /HPF (0-4)
== END 2021-06-18 15:24 | disposition home or self-care (01) ==
LOC: HO.LNP 15:23
PROVIDERS: Visit Provider Internal Medicine
DX: N39.0 Urinary tract infection, site not specified (principal)
CPT/HCPCS: 81001; 87086; 87088; 87186

== ENCOUNTER 2021-06-28 10:35 | Outpatient (REF) | payer MEDICARE, SELFPAY ==
[2021-06-28 10:56] LABS: Appearance Urine CLOUDY; Color Urine YELLOW; Glucose Urine UA NEG (NEG); Leukocyte Esterase Urine NEG (NEG); Nitrite Urine NEG (NEG); Specific Gravity - Urine 1.015 (1.005-1.025); Urine Blood NEG (NEG); Urine Ketones NEG (NEG); Urine Protein NEG (NEG-TRACE)
[2021-06-28 11:19] LABS: Amorphous Sediment Urine 4+ /LPF; Bacteria Urine 4+ /LPF; Squamous Epithelial Cell Urine 4+ /LPF; Triple Phosphate Crystal Urine 1+ /LPF
== END 2021-06-28 10:36 | disposition home or self-care (01) ==
LOC: HO.LNP 10:35
PROVIDERS: PCP Internal Medicine; Visit Provider Internal Medicine
DX: Z51.89 Encounter for other specified aftercare (principal)
CPT/HCPCS: 81001; 87086

== ENCOUNTER 2021-06-28 15:00 | Outpatient (RCR) | payer MEDICARE, SELFPAY ==
--- NOTE | 2021-05-09 13:20 | MHC.PT.EP ---
[facility] [place] Office [place] Office [place] Office [address] Marcus Gil [address] [phone] F: [phone] F: [phone] F: [phone] F: [phone] Physical Therapy Plan of Care Date of Evaluation: Date of Surgery: 04/23/21 Diagnosis: R TKA revision (femoral component and liner) Assessment: pt presents s/p R TKA revision on 04/23/21. pt presents to physical therapy with pain, decreased range of motion, decreased strength, impaired functional mobility, impaired postural awareness, and gait deviations. pt is a good candidate for skilled PT due to age, potential remediation of impairments, typical disease/condition progression and prognosis, comorbidities, and motivation. pt would benefit from tailored strengthening and stretching exercise program, functional training, gait training, postural re-training, neuromuscular re-education, modalities as needed for pain, equipment safety demonstration. Frequency and Duration: The patient will be seen 2x/wk for 6 wks Short Term Goals: pt will be I w/ HEP to promote self-management of post-operative state. pt will improve R knee extension to 0 deg to promote improved heel strike w/ gait on even ground w/ LRAD. Welding Tester Goals: pt will report a statistically significant improvement in self-reported outcome measure, LEFI, to promote return to PLOF. pt will ascend/descend 13 stairs w/ reciprocal pattern using LRAD to promote improved access to primary living spaces. Treatment Plan: Modalities to reduce pain, spasms and effusion. Manual therapy to restore motion and function. Therapeutic exercise to improve strength and flexibility. Neuromuscular re-education for posture and balance. Therapeutic activities to return to functional activities of daily living. Electronically signed by: Radha Gilbert PT, DPT Please sign and return to therapist. Thank you for your referral.
--- NOTE | 2021-07-01 09:52 | MHC.PT.DC ---
[facility] [place] Office [place] Office [place] Office [address] Marcus Gil [address] [phone] F: [phone] F: [phone] F: [phone] F: [phone] Physical Therapy Discharge Report Diagnosis: R TKA revision (femoral component and liner) Date of Surgery: 04/23/21 Date of Evaluation: 05/09/21 Date of Discharge: 07/01/21 Treatments to Date: 14 Cancellations to Date: 0 No Shows to Date: 0 Discharge Status: Achieved Goals Improved Function Independent with HEP Discharge Summary: Keira is ready for DC. She feels comfortable with her home program and managing on her own at this time. She demos normal ROM and improving strength. She understands how to be safe and the need to maintain her gains as well as continue to strengthen. DC to HEP Electronically signed by: Patt Casper PT Please sign and return to therapist. Thank you for your referral.
== END 2021-07-01 09:53 | disposition home or self-care (01) ==
LOC: HO.PTCHIC 15:00
PROVIDERS: PCP Internal Medicine; Visit Provider Physician Assistant
DX: Z96.651 Presence of right artificial knee joint (principal)
CPT/HCPCS: 97110; 97112; 97162; 97530

== ENCOUNTER → 2021-07-18 14:03 | Outpatient (BNVA) | payer MEDICARE, SELFPAY | PROVIDERS: Visit Provider Orthopaedic Surgery | DX: Z47.1 Aftercare following joint replacement surgery (principal); Z96.651 Presence of right artificial knee joint | CPT/HCPCS: 99212 ==

== ENCOUNTER 2021-08-12 07:15 | Outpatient (REF) | payer MEDICARE, SELFPAY ==
[2021-08-12 08:08] LABS: MANUAL DIFF FLAG NO
[2021-08-12 08:20] LABS: Basophils Absolute Auto 0.1 X10*3/uL (0.0-0.2); Basophils Percent Auto 0.8 % (0-2); Eosinophils Absolute Auto 0.2 X10*3/uL (0.0-0.4); Eosinophils Percent Auto 2.3 % (0-4); Hematocrit 38.5 % (37.0-47.0); Hemoglobin 12.3 g/dl (12.0-16.0); Imm Gran Abs Auto 0.03 X10*3/uL (0.00-0.03); Imm Gran Pct Auto 0.4 % (0.0-0.4); Lymphocytes Absolute Auto 1.9 X10*3/uL (1.2-4.9); Lymphocytes Percent Auto 26.7 % (20-40); Mean Corpuscular HGB Conc 31.9 g/dl (31.0-35.0); Mean Corpuscular Hemoglobin 26.6 pg (27.0-33.0); Mean Corpuscular Volume 83.3 fL (80.0-98.0); Mean Platelet Volume 9.4 fL (9.4-12.3); Monocytes Absolute Auto 0.6 X10*3/uL (0.1-1.2); Monocytes Percent Auto 8.8 % (2-11); Neutrophils Absolute Auto 4.4 x10*3/uL (2.0-8.3); Platelet Count 371 X10*3/uL (160-400); Red Blood Count 4.62 X10*6/uL (4.20-5.50); Red Cell Distribution Width 17.2 % (11.0-16.0); White Blood Count 7.3 X10*3/uL (4.8-10.8)
[2021-08-12 08:49] LABS: Iron 50 mcg/dL (30-160); Percent Iron Saturation 14 % (15-50); Total Iron Binding Capacity 370 mcg/dL (228-428); Unsaturated Iron Binding 320 ug/dL
[2021-08-12 09:11] LABS: Ferritin 96 ng/mL (10-250)
[2021-08-12 10:27] LABS: Folate > 20.0 ng/mL (> or = 4.0); Vitamin B12 592 pg/mL (200-900)
== END 2021-08-12 07:16 | disposition home or self-care (01) ==
LOC: HO.LAB 07:15
PROVIDERS: PCP Internal Medicine; Visit Provider Internal Medicine
DX: D50.9 Iron deficiency anemia, unspecified (principal)
CPT/HCPCS: 36415; 82607; 82728; 82746; 83540; 85025

== ENCOUNTER 2021-08-19 07:46 | Day surgery (SDC) | payer MEDICARE, SELFPAY ==
[2021-08-13 15:32] VITALS: BMI 26.6
--- NOTE | 2021-08-16 09:40 | P.CONAN_ITS ---
Documented by User: Jessica Joy NP 08/16/21 09:44 HPI - Anesthesia Eval Consult details Narrative: 81yo F for Upper Endoscopy and Colonoscopy with antibiotics s/p R TKA 04/2021 with GA-ETT 7 Paralyzed vocal cords Chronic hyponatremia PMFSH Active Problems Active Problems: All Active Problems (Updated 08/13/21 @ 15:38 by Carlyn Silverio RN) Instability of knee joint (Acute) Status post right knee replacement (Acute) Status post revision of total replacement of right knee (Acute) Past Medical History Medical History (Updated 08/13/21 @ 15:38 by Carlyn Silverio RN) COVID-19 vaccine series completed GERD (gastroesophageal reflux disease) Hiatal hernia HTN (hypertension) IBS (irritable bowel syndrome) Migraines Osteoarthritis Paralyzed vocal cords Personal history of COVID-19 Family History Family history of problems with anesthesia: No Surgical History Surgical History (Updated 08/13/21 @ 15:37 by Carlyn Silverio RN) H/O colonoscopy History of esophagogastroduodenoscopy (EGD) History of total left knee replacement History of total right knee replacement Hx of cholecystectomy Hx of laparoscopic gastric banding History of Problems with Anesthesia: No Social History Social History Household Members: Spouse Housing: House Are you a primary medical care administrator to a significant other at home: No Do you presently have visiting nurse or other home services: No Alcohol intake: current Alcohol intake frequency: does not drink Patient Tobacco Use Status: Former Tobacco user Quit Date: Tobacco use type: Cigarette Have you been hit, kicked, punched, or otherwise hurt by someone within the past year? If so, by whom?: No Are you DNR?: No Advance Directives: Yes Advance Directives Information Provided: No Advance Directives on File: Yes Advance Directives Date on File: 05/13/16 Recently lost weight without trying: No service: No Current occupational status: retired Meds Allergies Allergy/AdvReac Type Severity Reaction Status Date / Time Penicillins [PENICILLINS] Allergy Severe ANGIOEDEMA Verified 08/13/21 15:31 azithromycin [AZITHROMYCIN] Allergy Intermediate HIVES/RASH/THRUSH/FINGERNAIL&TOENAIL Verified 08/13/21 15:31 INFECTION Home Medications Medication Instructions Recorded Confirmed Last Taken Type omeprazole 20 mg capsule,delayed 1 cap PO DAILY 04/11/21 08/13/21 08/19/21 History release oxybutynin chloride 5 mg tablet 1 tab PO DAILY 04/11/21 08/13/21 Unknown History valsartan 80 1 tab PO DAILY 04/11/21 08/13/21 Unknown History mg-hydrochlorothiazide 12.5 mg tablet estradiol 10 mcg vaginal tablet 1 tab vaginal 3XW 04/12/21 08/13/21 Unknown History (Yuvafem) hyoscyamine sulfate 0.125 mg 1 tab sublingual Q4H PRN Abdominal 04/12/21 08/13/21 Unknown History sublingual tablet Pain lorazepam 0.5 mg tablet 1 tab PO Q6H PRN Anxiety 04/12/21 08/13/21 08/19/21 History magnesium hydroxide 400 mg/5 mL 400 mg PO Q2D 04/12/21 08/13/21 Unknown History oral suspension (Milk of Magnesia) tramadol 50 mg tablet 1 tab PO BID PRN Pain 08/13/21 08/13/21 Unknown History Exam Exam Date and Time: August 16, 2021 0940 Height,Weight and Vital Signs: Height 5 ft 8 in Weight 79.379 kg Pertinent Lab Results Pertinent Lab Results: Laboratory Tests 04/25/21 08/12/21 03:57 08:05 WBC 7.3 Hgb 12.3 D Hct 38.5 D Plt Count 371 BUN 11 Creatinine 0.69 Narrative Narrative: EKG 03/2020 SR 98 Intra-Atrial conduction delay Airway Mallampati Class: II TM Dist: >3cm Neck ROM: Full Denture: Upper and Lower Assessment and Plan Assessment Anesthesia Assessment: Chart Reviewed Final Anesthetic Review Family History of Problems with Anesthesia: No History of Problems with Anesthesia: No Documented by User: Yamil Daniel MD 08/19/21 16:54 [facility] Past Medical History Medical History (Updated 08/13/21 @ 15:38 by Carlyn Silverio RN) COVID-19 vaccine series completed GERD (gastroesophageal reflux disease) Hiatal hernia HTN (hypertension) IBS (irritable bowel syndrome) Migraines Osteoarthritis Paralyzed vocal cords Personal history of COVID-19 Surgical History Surgical History (Updated 08/13/21 @ 15:37 by Carlyn Silverio RN) H/O colonoscopy History of esophagogastroduodenoscopy (EGD) History of total left knee replacement History of total right knee replacement Hx of cholecystectomy Hx of laparoscopic gastric banding Social History Social History Household Members: Spouse Housing: House Are you a primary medical care administrator to a significant other at home: No Do you presently have visiting nurse or other home services: No Alcohol intake: current Alcohol intake frequency: does not drink Patient Tobacco Use Status: Former Tobacco user Quit Date: Tobacco use type: Cigarette Have you been hit, kicked, punched, or otherwise hurt by someone within the past year? If so, by whom?: No Are you DNR?: No Advance Directives: Yes Advance Directives Information Provided: No Advance Directives on File: Yes Advance Directives Date on File: 05/13/16 Recently lost weight without trying: No service: No Current occupational status: retired Meds Allergies Allergy/AdvReac Type Severity Reaction Status Date / Time Penicillins [PENICILLINS] Allergy Severe ANGIOEDEMA Verified 08/13/21 15:31 azithromycin [AZITHROMYCIN] Allergy Intermediate HIVES/RASH/TH MARROQUIN/FINGERNAIL&TOENAIL Verified 08/13/21 15:31 INFECTION Home Medications Medication Instructions Recorded Confirmed Last Taken Type omeprazole 20 mg capsule,delayed 1 cap PO DAILY 04/11/21 08/13/21 08/19/21 History release oxybutynin chloride 5 mg tablet 1 tab PO DAILY 04/11/21 08/13/21 Unknown History valsartan 80 1 tab PO DAILY 04/11/21 08/13/21 Unknown History mg-hydrochlorothiazide 12.5 mg tablet estradiol 10 mcg vaginal tablet 1 tab vaginal 3XW 04/12/21 08/13/21 Unknown History (Yuvafem) hyoscyamine sulfate 0.125 mg 1 tab sublingual Q4H PRN Abdominal 04/12/21 08/13/21 Unknown History sublingual tablet Pain lorazepam 0.5 mg tablet 1 tab PO Q6H PRN Anxiety 04/12/21 08/13/21 08/19/21 History magnesium hydroxide 400 mg/5 mL 400 mg PO Q2D 04/12/21 08/13/21 Unknown History oral suspension (Milk of Magnesia) tramadol 50 mg tablet 1 tab PO BID PRN Pain 08/13/21 08/13/21 Unknown History Exam Airway Loose/Missing/Broken Teeth: Yes Heart: S1,S2 Lungs: b/l breath sounds Assessment and Plan Assessment Anesthesia Assessment: Anesthesia Plan Discussed Final Anesthetic Review NPO: Yes ASA Class: III Final Preanesthetic Review: Meds/Allgs Chart Reviewed and Anes Risks/Benef Reviewed Patient Risk: High Procedure Risk: Intermediate Anesthetic Plan Anesthetic Plan: MAC: Disposition: Standard PACU
[2021-08-19 08:53] VITALS: BP 155/70; PULSE 88; RESP 18; TEMP 36.4; O2SAT 97
[2021-08-19] MEDS: Lactated Ringers 1,000 ML 100 ML IVCONT (09:00)
[2021-08-19] MEDS: Gentamicin Sulfate/NaCl 80 MG/100 ML PIGGYBACK 100 MG IV (09:00)
[2021-08-19] MEDS: vancomycin HCL 1,000 MG in 0.9 % Sodium Chloride 250 ML 270 MG IV (09:04)
[2021-08-19 09:52] LABS: Anion Gap 16 (12-20); Carbon Dioxide 16 mmol/L (22-29); Chloride 104 mmol/L (96-108); Potassium 3.9 mmol/L (3.3-5.1); Sodium 132 mmol/L (135-145)
[2021-08-19 11:09] VITALS: BP 120/72; PULSE 91; RESP 16; TEMP 36.1; O2SAT 97
--- NOTE | 2021-08-19 11:15 | PM.OP ---
Brief Operative Note Date of Service: 08/19/21 Pre-op diagnosis: Anemia, + Cologuard Post-op diagnosis: other (Colon polyp, Gastritis, Gastric polyps) Procedure: EGD with biopsies, Colonoscopy to the cecum with cold snare polypectomy Surgeon: Kristian Davila Anesthesia: MAC Was an Engagement Quality Consultant used for this Procedure?: No Estimated blood loss (mL): 2.0 Pathology: other (A. Colon polyp at 50cm B. Descending duodenum C. Gastric antrum D. Gastric polyps) Condition: stable Disposition: PACU
[2021-08-19 11:24] VITALS: BP 144/78; PULSE 90; RESP 16; TEMP 36.1; O2SAT 97
[2021-08-19 11:40] VITALS: BP 144/83; PULSE 102; RESP 16; TEMP 36.1; O2SAT 97
--- NOTE | 2021-08-19 22:29 | OP_ITS ---
SURGEON: Kristian Davila MD INDICATIONS: The patient presents for evaluation of a positive Cologuard test, and iron-deficiency anemia. Full consent was obtained from her for both procedures, including risks of bleeding and perforation. PREOPERATIVE DIAGNOSIS: POSTOPERATIVE DIAGNOSIS: PROCEDURE PERFORMED: Esophagogastroduodenoscopy with biopsies, and colonoscopy to the cecum with cold snare polypectomy. ESTIMATED BLOOD LOSS: COMPLICATIONS: ANESTHESIA: Monitored anesthesia care. ASSISTANTS: SPECIMENS: PREOPERATIVE DIAGNOSES: Positive Cologuard test and iron-deficiency anemia. POSTOPERATIVE DIAGNOSES: Positive Cologuard test and iron-deficiency anemia, colon polyp, diverticulosis, internal hemorrhoids, gastritis, gastric polyps, rule out celiac disease, hiatal hernia. DESCRIPTION OF PROCEDURE: The patient was placed in the left lateral decubitus position. The digital rectal exam revealed no abnormalities. The Olympus video pediatric colonoscope was entered into the rectum advanced easily to the cecum. Once in the cecum, I did identify a normal-appearing cecal pouch with appendiceal orifice and a normal-appearing ileocecal valve. There was transillumination of light deep in the right lower quadrant. The entire cecum and ileocecal valve appeared normal. The scope was slowly withdrawn assessing all mucosal surfaces carefully. Preparation was excellent. In the very proximal ascending colon were multiple areas of what appeared to be superficial mucosal irritation with some friability. After copious irrigation, I did not visualize any definitive angiodysplasias and they seemed more consistent with some mucosal irritation perhaps from the prep. I did not visualize any colitis. The remainder of the colon appeared normal other than some diverticulosis in the sigmoid colon. There was 1 small polyp, approximately 6 mm in diameter at 50 cm which was removed by cold snare polypectomy. This was recovered by suction. The polypectomy site appeared clean, without any sign of residual polyp nor any significant bleeding. No other polyps were seen. I did not visualize any sign of colitis nor angiodysplasia. There was a moderate amount of diverticulosis in the sigmoid colon. In the rectum, scope was retroflexed visualizing some internal hemorrhoids, but no other pathology. The rectal mucosa appeared normal. The scope was straightened and withdrawn from the patient. She was turned around fpr the upper endoscopy. The Olympus video gastroscope was passed in the posterior oropharynx and upper esophagus under direct vision. The scope was passed slowly to the distal esophagus. The gastroesophageal junction appeared at 35 cm. There was a very minimal irregularity but no esophagitis and no definitive evidence of Silveira's mucosa. The scope was advanced to pylorus and the duodenum was cannulated to the descending portion of the duodenum. The duodenum, including the bulb, appeared normal without mass or ulceration. Biopsies were obtained from the 2nd and 3rd portions of duodenum. The scope was withdrawn back to the stomach. The gastric antrum had some areas of erythema, edema, and 1 erosion. There was good peristalsis. Biopsies were obtained from the gastric antrum. The scope was retroflexed visualizing the proximal stomach carefully which appeared normal, without any sign of mass or ulceration, other than multiple benign-appearing gastric polyps. Two of these were biopsied. The scope was straightened and withdrawn back into the esophagus. Of note, the hiatal hernia pouch mucosa appeared normal and I did not visualize any sign of obstruction from her lap band. The esophageal mucosa appeared normal. The scope was withdrawn from the patient. She tolerated the procedure well and was returned to recovery area in stable condition. IMPRESSION: 1. Hiatal hernia. 2. Gastritis. 3. Gastric polyps. 4. Rule out celiac disease. 5. Colon polyp. 6. Diverticulosis. 7. Internal hemorrhoids. PLAN: The results of the biopsies will be checked. Given her age and these findings, I do not think she will need any further colonoscopies, at least from a screening standpoint. She was advised to continue her daily omeprazole. She was advised to resume her iron today. She was advised to try to avoid aspirin and NSAIDs long-term, but for at least 1 week. Recent lab work on August 12 revealed actually a normal hemoglobin of 12.3 with a normal MCV of 83. Her ferritin was up to 96 and her iron was 50 with an iron saturation of 14%. She will continue the iron. Again, she will try to avoid all NSAIDs for as long as possible since I do think that probably contributed to the blood loss. If things are stable, I will plan to see her in the Fall for a followup visit. I do not think any further workup for the anemia is required unless she has recurrent problems. This has been discussed with her . MD UMANG Lamas/KIMBERLY / [id number] YANIV
== END 2021-08-19 12:40 | disposition home or self-care (01) ==
PROVIDERS: Nurse Practitioner; PCP Internal Medicine; Visit Provider Internal Medicine
PROC: (CPT 45385; principal; 2021-08-19 09:40)
DX: R19.5 Other fecal abnormalities (principal); D50.9 Iron deficiency anemia, unspecified; D12.5 Benign neoplasm of sigmoid colon; K57.30 Diverticulosis of large intestine without perforation or abscess without bleeding; K64.8 Other hemorrhoids; K59.09 Other constipation; K21.9 Gastro-esophageal reflux disease without esophagitis; K31.7 Polyp of stomach and duodenum; K29.50 Unspecified chronic gastritis without bleeding; K44.9 Diaphragmatic hernia without obstruction or gangrene; Z79.1 Long term (current) use of non-steroidal anti-inflammatories (NSAID); Z79.899 Other long term (current) drug therapy; Z98.84 Bariatric surgery status; Z88.0 Allergy status to penicillin; Z88.1 Allergy status to other antibiotic agents; Z96.653 Presence of artificial knee joint, bilateral; Z87.891 Personal history of nicotine dependence
CPT/HCPCS: 45385; 43239; 36415; 80051; 88305; 88342; J1580; J2250; J3010; J3370

== ENCOUNTER 2022-01-16 11:15 | Outpatient (REF) | payer MEDICARE, SELFPAY ==
[2022-01-16 11:42] LABS: MANUAL DIFF FLAG NO
[2022-01-16 12:03] LABS: Basophils Absolute Auto 0.1 X10*3/uL (0.0-0.2); Basophils Percent Auto 0.8 % (0-2); Eosinophils Absolute Auto 0.2 X10*3/uL (0.0-0.4); Eosinophils Percent Auto 3.3 % (0-4); Hematocrit 35.3 % (37.0-47.0); Imm Gran Abs Auto 0.02 X10*3/uL (0.00-0.03); Imm Gran Pct Auto 0.3 % (0.0-0.4); Lymphocytes Absolute Auto 1.4 X10*3/uL (1.2-4.9); Lymphocytes Percent Auto 22.6 % (20-40); Mean Corpuscular Hemoglobin 27.8 pg (27.0-33.0); Mean Corpuscular Volume 81.7 fL (80.0-98.0); Mean Platelet Volume 9.1 fL (9.4-12.3); Monocytes Absolute Auto 0.7 X10*3/uL (0.1-1.2); Monocytes Percent Auto 10.7 % (2-11); Neutrophils Absolute Auto 3.9 x10*3/uL (2.0-8.3); Neutrophils Percent Auto 62.3 % (45-73); Platelet Count 364 X10*3/uL (160-400); Red Blood Count 4.32 X10*6/uL (4.20-5.50); Red Cell Distribution Width 14.4 % (11.0-16.0); White Blood Count 6.3 X10*3/uL (4.8-10.8)
[2022-01-16 12:27] LABS: Iron 40 mcg/dL (30-160); Percent Iron Saturation 11 % (15-50); Total Iron Binding Capacity 364 mcg/dL (228-428); Unsaturated Iron Binding 324 ug/dL
[2022-01-16 12:51] LABS: Ferritin 101 ng/mL (10-250)
== END 2022-01-16 11:16 | disposition home or self-care (01) ==
LOC: HO.LAB 11:15
PROVIDERS: PCP Internal Medicine; Visit Provider Internal Medicine
DX: D50.9 Iron deficiency anemia, unspecified (principal)
CPT/HCPCS: 36415; 82728; 83540; 85025

== ENCOUNTER 2022-02-10 07:53 | Outpatient (REF) | payer MEDICARE, SELFPAY ==
--- NOTE | ~2022-02-10 | XR_ITS ---
EXAMINATION: XR SHOULDER, RIGHT CLINICAL INFORMATION: Pain right shoulder COMPARISON: None TECHNIQUE: AP external rotation, Grashey, scapular Y, and axillary views of the right shoulder. FINDINGS: There is cephalic migration of the humeral head in relation to acromion. No visible acute fracture, lytic or sclerotic process seen. There is moderate hypertrophic changes right AC joint. No lytic or sclerotic process seen. The soft tissues are normal. XR/XR shoulder RT min 2V IMPRESSION: 1. Cephalic migration of humeral head in relation to acromion suggestive of rotator cuff tear. No visible acute fracture or dislocation seen. 2. Moderate degenerative changes right A.C. joint.
== END 2022-02-10 07:54 | disposition home or self-care (01) ==
LOC: HO.HOSX 07:53
PROVIDERS: Visit Provider Orthopaedic Surgery
DX: M19.011 Primary osteoarthritis, right shoulder (principal)
CPT/HCPCS: 20610; 73030; 99212; J1100

== ENCOUNTER 2022-03-17 10:59 | Outpatient (REF) | payer MEDICARE, SELFPAY ==
[2022-03-17 11:02] LABS: MANUAL DIFF FLAG NO
[2022-03-17 11:15] LABS: Appearance Urine Clear; Color Urine Yellow; Glucose Urine UA Negative (Negative); Leukocyte Esterase Urine Large (3+) (Negative); Nitrite Urine Positive (Negative); PH 6.5 (5.0-9.0); UMIC TRIGGER UACC YES; Urine Blood Negative (Negative); Urine Ketones Negative (Negative); Urine Protein Negative (Neg-Trace)
[2022-03-17 11:16] LABS: Basophils Absolute Auto 0.1 X10*3/uL (0.0-0.2); Eosinophils Absolute Auto 0.3 X10*3/uL (0.0-0.4); Eosinophils Percent Auto 3.8 % (0-4); Hematocrit 36.1 % (37.0-47.0); Hemoglobin 11.9 g/dl (12.0-16.0); Imm Gran Abs Auto 0.02 X10*3/uL (0.00-0.03); Imm Gran Pct Auto 0.3 % (0.0-0.4); Lymphocytes Absolute Auto 1.8 X10*3/uL (1.2-4.9); Lymphocytes Percent Auto 25.7 % (20-40); Mean Corpuscular Hemoglobin 27.7 pg (27.0-33.0); Mean Corpuscular Volume 84.1 fL (80.0-98.0); Mean Platelet Volume 9.9 fL (9.4-12.3); Monocytes Absolute Auto 0.7 X10*3/uL (0.1-1.2); Monocytes Percent Auto 9.8 % (2-11); Neutrophils Absolute Auto 4.2 x10*3/uL (2.0-8.3); Neutrophils Percent Auto 59.4 % (45-73); Platelet Count 393 X10*3/uL (160-400); Red Blood Count 4.29 X10*6/uL (4.20-5.50); Red Cell Distribution Width 14.5 % (11.0-16.0); White Blood Count 7.1 X10*3/uL (4.8-10.8)
[2022-03-17 11:17] LABS: Bacteria Urine 4+ (None Seen); Hyaline Casts Urine 0-2 /LPF (0-2); RBC Urine 0-2 /HPF (0-2); Squamous Epithelial Cell Urine 0-2 /HPF (0-2); UACC Culture Trigger YES; WBC Urine 21-50 /HPF (0-5)
[2022-03-17 11:30] LABS: Alanine Aminotransferase 12 U/L (0-31); Albumin Level 3.8 g/dL (3.5-5.0); Alkaline Phosphatase 93 U/L (39-117); Anion Gap 14 (12-20); Aspartate Amino Transferase 16 U/L (5-31); Bilirubin Total 0.5 mg/dL (0.0-1.0); Blood Urea Nitrogen 20 mg/dL (9-16); Calcium 9.6 mg/dL (8.4-10.2); Carbon Dioxide 30 mmol/L (22-29); Chloride 92 mmol/L (96-108); Cholesterol 204 mg/dL; Estimated Glomerular Filt Rate 54; Glucose Random 105 mg/dL (60-115); HDL Cholesterol 56 mg/dL; Iron 60 mcg/dL (30-160); LDL Cholesterol Calculated 128 mg/dl; Percent Iron Saturation 19 % (15-50); Potassium 3.4 mmol/L (3.3-5.1); Sodium 133 mmol/L (135-145); Total Iron Binding Capacity 320 mcg/dL (228-428); Total Protein 6.2 g/dL (6.5-8.0); Triglycerides 100 mg/dL; Unsaturated Iron Binding 260 ug/dL
[2022-03-17 11:31] LABS: Estimated Average Glucose 100 mg/dL; Hemoglobin A1c % 5.1 %
[2022-03-17 11:53] LABS: Creatinine Urine 52.87 mg/dL; Microalbumin Urine < 5.0 mg/L
== END 2022-03-17 11:00 | disposition home or self-care (01) ==
LOC: HO.LNP 10:59
PROVIDERS: Visit Provider Internal Medicine
DX: Z00.00 Encounter for general adult medical examination without abnormal findings (principal); I10 Essential (primary) hypertension; R73.03 Prediabetes; D50.9 Iron deficiency anemia, unspecified
CPT/HCPCS: 80053; 80061; 81001; 82043; 83036; 83540; 85025; 87086; 87088; 87186

== ENCOUNTER 2022-04-01 15:52 | Outpatient (REF) | payer MEDICARE, SELFPAY ==
[2022-04-01 16:41] LABS: Appearance Urine Clear; Color Urine Yellow; Glucose Urine UA Negative (Negative); Leukocyte Esterase Urine Large (3+) (Negative); Nitrite Urine Negative (Negative); Specific Gravity - Urine 1.015 (1.005-1.025); UMIC TRIGGER UACC YES; Urine Blood Negative (Negative); Urine Ketones Negative (Negative); Urine Protein Negative (Neg-Trace)
[2022-04-01 16:47] LABS: Bacteria Urine None Seen (None Seen); Hyaline Casts Urine 0-2 /LPF (0-2); RBC Urine 0-2 /HPF (0-2); UACC Culture Trigger YES
== END 2022-04-01 15:53 | disposition home or self-care (01) ==
LOC: HO.LNP 15:52
PROVIDERS: Visit Provider Internal Medicine
DX: Z51.89 Encounter for other specified aftercare (principal); R82.90 Unspecified abnormal findings in urine
CPT/HCPCS: 81001; 87086

== ENCOUNTER 2022-04-16 07:53 | Outpatient (REF) | payer MEDICARE, SELFPAY ==
--- NOTE | ~2022-04-16 | MM_ITS ---
EXAMINATION: MM SCREENING DIGITAL BREAST TOMOSYNTHESIS, BILATERAL CLINICAL INFORMATION: Screening. Asymptomatic. The lifetime risk of breast cancer based on the Tyrer-Cuzick Model is 2.9%. COMPARISON: Mammography: April 15, 2021 and studies dating back to February 19, 2016 TECHNIQUE: Digital breast tomosynthesis is performed in both the craniocaudal and mediolateral oblique views along with computer-aided detection (CAD). Synthesized 2D images are generated from the tomosynthesis. FINDINGS: There are scattered areas of fibroglandular density (ACR BI-RADS breast composition Category b). There are no significant masses, abnormal calcifications, or other abnormalities. MM/MM tomosynthesis screening BI IMPRESSION: No significant changes from prior exam. ASSESSMENT: BI-RADS 1: Negative RECOMMENDATION: Routine annual mammography screening. This patient's information was entered into a reminder system with a target due date for their next mammogram.
== END 2022-04-16 07:54 | disposition home or self-care (01) ==
LOC: HO.MAMMO 07:53
PROVIDERS: Visit Provider Internal Medicine
DX: Z12.31 Encounter for screening mammogram for malignant neoplasm of breast (principal)
CPT/HCPCS: 77063; 77067

== ENCOUNTER 2022-09-01 16:42 | Outpatient (REF) | payer MEDICARE, SELFPAY ==
[2022-09-01 17:21] LABS: Appearance Urine Cloudy; Color Urine Yellow; Glucose Urine UA Negative (Negative); Leukocyte Esterase Urine Moderate (2+) (Negative); Nitrite Urine Positive (Negative); Specific Gravity - Urine 1.025 (1.005-1.025); UMIC TRIGGER UA YES; Urine Blood Moderate (2+) (Negative); Urine Ketones Negative (Negative); Urine Protein Trace mg/dL (Neg-Trace)
[2022-09-01 19:58] LABS: Bacteria Urine 4+ (None Seen); RBC Urine 0-2 /HPF (0-2); WBC Urine >50 /HPF (0-5)
== END 2022-09-01 16:43 | disposition home or self-care (01) ==
LOC: HO.LNP 16:42
PROVIDERS: PCP Internal Medicine; Visit Provider Internal Medicine
DX: N39.0 Urinary tract infection, site not specified (principal)
CPT/HCPCS: 81001; 81003; 87086; 87088; 87186

== ENCOUNTER 2022-09-12 10:14 | Outpatient (REF) | payer MEDICARE, SELFPAY | END 2022-09-12 10:15 | disposition home or self-care (01) | LOC: HO.LNP 10:14 | PROVIDERS: Visit Provider Internal Medicine | DX: N39.0 Urinary tract infection, site not specified (principal) | CPT/HCPCS: 81001; 87086 ==

== ENCOUNTER 2022-11-20 16:16 | Outpatient (REF) | payer MEDICARE, SELFPAY ==
[2022-11-20 16:39] LABS: Appearance Urine Turbid; Color Urine Dark Yellow; Glucose Urine UA Negative (Negative); Leukocyte Esterase Urine Large (3+) (Negative); Nitrite Urine Positive (Negative); Specific Gravity - Urine 1.015 (1.005-1.025); UMIC TRIGGER UACC YES; Urine Blood Trace (Negative); Urine Ketones Negative (Negative); Urine Protein Negative (Neg-Trace)
[2022-11-20 16:57] LABS: Bacteria Urine 4+ (None Seen); UACC Culture Trigger YES; WBC Urine >50 /HPF (0-5)
== END 2022-11-20 16:17 | disposition home or self-care (01) ==
LOC: HO.LNP 16:16
PROVIDERS: Visit Provider Internal Medicine
DX: N39.0 Urinary tract infection, site not specified (principal)
CPT/HCPCS: 81001; 87086; 87088; 87186

== ENCOUNTER 2022-12-02 12:00 | Outpatient (REF) | payer MEDICARE, SELFPAY ==
[2022-12-02 12:23] LABS: Appearance Urine Clear; Color Urine Yellow; Glucose Urine UA Negative (Negative); Leukocyte Esterase Urine Moderate (2+) (Negative); Nitrite Urine Negative (Negative); PH 6.5 (5.0-9.0); Specific Gravity - Urine 1.015 (1.005-1.025); UMIC TRIGGER UACC YES; Urine Blood Negative (Negative); Urine Ketones Negative (Negative); Urine Protein Negative (Neg-Trace)
[2022-12-02 12:46] LABS: Bacteria Urine None Seen (None Seen); Hyaline Casts Urine 0-2 /LPF (0-2); RBC Urine 0-2 /HPF (0-2); WBC Urine 0-5 /HPF (0-5)
== END 2022-12-02 12:01 | disposition home or self-care (01) ==
LOC: HO.LNP 12:00
PROVIDERS: Visit Provider Internal Medicine
DX: N39.0 Urinary tract infection, site not specified (principal)
CPT/HCPCS: 81001

== ENCOUNTER 2023-03-26 10:34 | Outpatient (REF) | payer MEDICARE, SELFPAY ==
[2023-03-26 10:38] LABS: MANUAL DIFF FLAG NO
[2023-03-26 10:46] LABS: Appearance Urine Hazy; Color Urine Straw; Glucose Urine UA Negative (Negative); Leukocyte Esterase Urine Large (3+) (Negative); Nitrite Urine Positive (Negative); Specific Gravity - Urine 1.015 (1.005-1.025); UMIC TRIGGER UACC YES; Urine Blood Small (1+) (Negative); Urine Ketones Negative (Negative); Urine Protein Negative (Neg-Trace)
[2023-03-26 11:11] LABS: Basophils Absolute Auto 0.1 X10*3/uL (0.0-0.2); Eosinophils Absolute Auto 0.1 X10*3/uL (0.0-0.4); Eosinophils Percent Auto 1.2 % (0-4); Hematocrit 36.6 % (37.0-47.0); Hemoglobin 12.5 g/dl (12.0-16.0); Imm Gran Abs Auto 0.03 X10*3/uL (0.00-0.03); Imm Gran Pct Auto 0.5 % (0.0-0.4); Lymphocytes Absolute Auto 1.4 X10*3/uL (1.2-4.9); Lymphocytes Percent Auto 23.6 % (20-40); Mean Corpuscular HGB Conc 34.2 g/dl (31.0-35.0); Mean Corpuscular Hemoglobin 28.6 pg (27.0-33.0); Mean Corpuscular Volume 83.8 fL (80.0-98.0); Mean Platelet Volume 8.9 fL (9.4-12.3); Monocytes Absolute Auto 0.6 X10*3/uL (0.1-1.2); Monocytes Percent Auto 10.4 % (2-11); Neutrophils Absolute Auto 3.7 x10*3/uL (2.0-8.3); Neutrophils Percent Auto 63.3 % (45-73); Platelet Count 354 X10*3/uL (160-400); Red Blood Count 4.37 X10*6/uL (4.20-5.50); Red Cell Distribution Width 15.3 % (11.0-16.0); White Blood Count 5.8 X10*3/uL (4.8-10.8)
[2023-03-26 11:13] LABS: Bacteria Urine 4+ (None Seen); Hyaline Casts Urine 0-2 /LPF (0-2); UACC Culture Trigger YES
[2023-03-26 11:30] LABS: Estimated Average Glucose 103 mg/dL; Hemoglobin A1c % 5.2 % (<6.0)
[2023-03-26 11:33] LABS: Creatinine Urine 96.61 mg/dL; Microalbum/Creatinine Ratio Ur 8.2 ug/mg cr (<30)
[2023-03-26 11:41] LABS: Alanine Aminotransferase 10 U/L (0-31); Albumin Level 3.6 g/dL (3.5-5.0); Alkaline Phosphatase 84 U/L (39-117); Anion Gap 11 (12-20); Aspartate Amino Transferase 14 U/L (5-31); Bilirubin Total 0.4 mg/dL (0.0-1.0); Blood Urea Nitrogen 22 mg/dL (9-16); Calcium 9.8 mg/dL (8.4-10.2); Carbon Dioxide 30 mmol/L (22-29); Chloride 93 mmol/L (96-108); Cholesterol 209 mg/dL (<200); Estimated Glomerular Filt Rate 50; Glucose Random 94 mg/dL (60-115); HDL Cholesterol 60 mg/dL (>40); LDL Cholesterol Calculated 135 mg/dL (<100); Potassium 3.2 mmol/L (3.3-5.1); Sodium 131 mmol/L (135-145); Total Protein 6.5 g/dL (6.5-8.0); Triglycerides 70 mg/dL (<150)
== END 2023-03-26 10:35 | disposition home or self-care (01) ==
LOC: HO.LNP 10:34
PROVIDERS: Visit Provider Internal Medicine
DX: Z00.00 Encounter for general adult medical examination without abnormal findings (principal); I10 Essential (primary) hypertension; D50.9 Iron deficiency anemia, unspecified; R73.09 Other abnormal glucose
CPT/HCPCS: 80053; 80061; 81001; 82043; 82570; 83036; 85025; 87086; 87088; 87186

== ENCOUNTER 2023-04-16 11:19 | Outpatient (REF) | payer MEDICARE, SELFPAY ==
[2023-04-16 11:46] LABS: Appearance Urine Clear; Color Urine Yellow; Glucose Urine UA Negative (Negative); Leukocyte Esterase Urine Trace (Negative); Nitrite Urine Negative (Negative); PH 6.5 (5.0-9.0); Specific Gravity - Urine 1.015 (1.005-1.025); UMIC TRIGGER UACC YES; Urine Blood Negative (Negative); Urine Ketones Negative (Negative); Urine Protein Negative (Neg-Trace)
[2023-04-16 11:54] LABS: Bacteria Urine None Seen (None Seen); Hyaline Casts Urine 0-2 /LPF (0-2); RBC Urine 0-2 /HPF (0-2); WBC Urine 0-5 /HPF (0-5)
== END 2023-04-16 11:20 | disposition home or self-care (01) ==
LOC: HO.LNP 11:19
PROVIDERS: Visit Provider Internal Medicine
DX: R31.9 Hematuria, unspecified (principal)
CPT/HCPCS: 81001

== ENCOUNTER 2023-04-30 07:49 | Outpatient (REF) | payer MEDICARE, SELFPAY ==
[2023-04-30 11:12] LABS: Potassium 3.2 mmol/L (3.3-5.1)
== END 2023-04-30 07:50 | disposition home or self-care (01) ==
LOC: HO.10HDL 07:49
PROVIDERS: Visit Provider Internal Medicine
DX: E87.6 Hypokalemia (principal)
CPT/HCPCS: 36415; 84132

== ENCOUNTER 2023-05-07 08:20 | Outpatient (REF) | payer MEDICARE, SELFPAY | END 2023-05-07 08:21 | disposition home or self-care (01) | LOC: HO.MAMMO 08:20 | PROVIDERS: Absent Provider Obstetrics & Gynecology Gynecology; PCP Internal Medicine; Visit Provider Internal Medicine | DX: Z12.31 Encounter for screening mammogram for malignant neoplasm of breast (principal) | CPT/HCPCS: 77063; 77067 ==

== ENCOUNTER → 2023-05-07 08:45 | Outpatient (BNV) | payer MEDICARE, SELFPAY | PROVIDERS: Absent Provider Obstetrics & Gynecology Gynecology; PCP Internal Medicine; Visit Provider Radiology Diagnostic Radiology | DX: Z12.31 Encounter for screening mammogram for malignant neoplasm of breast (principal) | CPT/HCPCS: 77063; 77067 ==

== ENCOUNTER 2023-06-11 13:29 | Outpatient (REF) | payer MEDICARE, SELFPAY ==
[2023-06-11 13:39] LABS: Potassium 3.1 mmol/L (3.3-5.1)
== END 2023-06-11 13:30 | disposition home or self-care (01) ==
LOC: HO.LNP 13:29
PROVIDERS: Visit Provider Internal Medicine
DX: E87.6 Hypokalemia (principal)
CPT/HCPCS: 84132

== ENCOUNTER 2023-08-11 11:34 | Outpatient (REF) | payer MEDICARE, SELFPAY ==
[2023-08-11 12:38] LABS: Potassium 4.3 mmol/L (3.3-5.1)
== END 2023-08-11 11:35 | disposition home or self-care (01) ==
LOC: HO.LNP 11:34
PROVIDERS: Visit Provider Internal Medicine
DX: E87.6 Hypokalemia (principal)
CPT/HCPCS: 84132

== ENCOUNTER 2024-03-29 10:34 | Outpatient (REF) | payer MEDICARE, SELFPAY ==
[2024-03-29 10:39] LABS: MANUAL DIFF FLAG NO
[2024-03-29 11:02] LABS: Basophils Absolute Auto 0.1 X10*3/uL (0.0-0.2); Basophils Percent Auto 1.2 % (0-2); Eosinophils Absolute Auto 0.1 X10*3/uL (0.0-0.4); Eosinophils Percent Auto 2.4 % (0-4); Hematocrit 37.5 % (37.0-47.0); Hemoglobin 12.2 g/dl (12.0-16.0); Imm Gran Abs Auto 0.01 X10*3/uL (0.00-0.03); Imm Gran Pct Auto 0.2 % (0.0-0.4); Lymphocytes Absolute Auto 1.5 X10*3/uL (1.2-4.9); Lymphocytes Percent Auto 29.9 % (20-40); Mean Corpuscular HGB Conc 32.5 g/dl (31.0-35.0); Mean Corpuscular Hemoglobin 28.4 pg (27.0-33.0); Mean Corpuscular Volume 87.4 fL (80.0-98.0); Mean Platelet Volume 9.4 fL (9.4-12.3); Monocytes Absolute Auto 0.6 X10*3/uL (0.1-1.2); Neutrophils Absolute Auto 2.8 x10*3/uL (2.0-8.3); Neutrophils Percent Auto 55.3 % (45-73); Platelet Count 307 X10*3/uL (160-400); Red Blood Count 4.29 X10*6/uL (4.20-5.50); Red Cell Distribution Width 17.2 % (11.0-16.0)
[2024-03-29 11:17] LABS: Appearance Urine Clear; Color Urine Yellow; Glucose Urine UA Negative (Negative); Leukocyte Esterase Urine Large (3+) (Negative); Nitrite Urine Negative (Negative); Specific Gravity - Urine 1.015 (1.005-1.025); UMIC TRIGGER UACC YES; Urine Blood Negative (Negative); Urine Ketones Negative (Negative); Urine Protein Negative (Neg-Trace)
[2024-03-29 11:18] LABS: Estimated Average Glucose 97 mg/dL; Hemoglobin A1C 101.0564 umol/L; Total Hemoglobin (HGBA1C) 3227.8109 umol/L
[2024-03-29 11:21] LABS: Bacteria Urine None Seen (None Seen); Hyaline Casts Urine 0-2 /LPF (0-2); RBC Urine 0-2 /HPF (0-2); UACC Culture Trigger YES; WBC Urine 21-50 /HPF (0-5)
[2024-03-29 11:32] LABS: Alanine Aminotransferase 8 U/L (0-31); Albumin Level 4.2 g/dL (3.5-5.0); Alkaline Phosphatase 88 U/L (39-117); Anion Gap 12 (12-20); Aspartate Amino Transferase 20 U/L (5-31); Bilirubin Total 0.4 mg/dL (0.0-1.0); Blood Urea Nitrogen 21 mg/dL (9-16); Calcium 9.4 mg/dL (8.4-10.2); Carbon Dioxide 26 mmol/L (22-29); Chloride 98 mmol/L (96-108); Cholesterol 221 mg/dL (<200); Estimated Glomerular Filt Rate 52; Glucose Fasting 95 mg/dL (60-99); HDL Cholesterol 63 mg/dL (>40); LDL Cholesterol Calculated 137 mg/dL (<100); Sodium 132 mmol/L (135-145); Total Protein 7.3 g/dL (6.5-8.0); Triglycerides 105 mg/dL (<150)
--- OUTSIDE RECORDS SUMMARY | 2024-03-29 11:58 | XMS_ITS | Clinical Summary ---
Author Organization [facility] Address [id number] [place] [phone] Care Team Providers Care Crop Duster Helper Name Role Phone Red Sexton MD Primary Care Provider Unav ailable Surgical History Surgery Date Site/Laterality Comments CHOLECYSTECTOMY PROCEDURE: HISTORICAL CHOLECYSTECTOMY TOTAL KNEE ARTHROPLASTY Bilateral PROCEDURE: HISTORICAL TOTAL KNEE REPLACE OTHER SURGICAL HISTORY PROCEDURE: ---- OTHER ----; COMMENT: lap band Medical History Medical History Date Comments History of bariatric surgery 09/10/2017 DX: History of bariatric surgery; COMMENT: Lap band Total knee replacement status 09/10/2017 DX :Total knee replacement status; COMMENT: bilateral Hiatal hernia 09/10/2017 DX:Hiatal hernia History of vocal cord paralysis 09/10/2017 DX:History of vocal cord paralysis Hypertension 09/10/2017 DX:Hypertension Social History Tobacco Use Types Packs/Day Years Used Date Smoking Tobacco: Never Smokeless Tobacco: Never Alcohol Use Standard Drinks/Week Comments Yes 0 (1 standard drink = 0.6 oz pur e alcohol) Sex and Gender Information Value Date Recorded Sex Assigned at Not on file Gender Identity Not on file Sexual Orientation Not on file Obstetrics History Plan of Treatment Health Maintenance Due Date Last Done Comments DTaP,Tdap,and Td Vaccines (1 - Tdap) 01/03/1960 Zoster Vaccines (1 of 2) 1991 Pneumococcal Vaccine: 65+ Ye ars (1 of 1 - PCV) 2006 RSV Immunization Patients 60 + Years Old (1 - 1-dose 75+ series) 01/03/2016 COVID-19 Vaccine ( - 2023-2 5 season) 2023 Influenza Vaccine (#1) 2023 HIB Vaccines Aged Out No longer eligi ble based on patient's age to complete this topic HPV Vaccines Aged Out No longer eligi ble based on patient's age to complete this topic Hepatitis A Vaccines Aged Out No long er eligible based on patient's age to complete this topic Hepatitis B Vaccines Aged Out No long er eligible based on patient's age to complete this topic IPV Vaccines Aged Out No longer eligi ble based on patient's age to complete this topic MMR Vaccines Aged Out No longer eligi ble based on patient's age to complete this topic Meningococcal ACWY Vaccine Aged Out N o longer eligible based on patient's age to complete this topic RSV Immunization Patients Un nereida 20 months Aged Out No longer eligible b ased on patient's age to complete this topic Varicella Vaccines Aged Out No longer eligible based on patient's age to complete this topic Care Teams Crop Duster Helper Relationship Specialty Start Date End Date Red Sexton MD [address] [place] [address] PCP - General Internal Medicine 08/12/17
--- OUTSIDE RECORDS SUMMARY | 2024-03-29 11:58 | XMS_ITS ---
Author Organization Red Sexton MD Address [address] [place] [phone] Care Team Providers Care Oil Recovery Unit Operator Name Role Phone Red Sexton Primary Care Provider REASON FOR VISIT REFILL OMEPRAZOLE MEDICATIONS Medication SIG (Take, Route, Fr equency, Duration) Notes Start Date End Date Status Omeprazole 20 MG TAKE 1 CAPSULE BY MO UTH EVERY DAY Orally Once a day for 90 days Ac tive Encounters Encounter Location Date Provider Diagnosis Red Sexton MD [address] [place] [phone] 03/03/2024 Red Sexton PLAN OF TREATMENT Medication Medication Name Sig Start Date Stop Date Notes Omeprazole 20 MG TAKE 1 CAPSULE BY MO UTH EVERY DAY Orally Once a day for 90 days Next Appt Details Provider Name:Red paul, 04/04/2024 10:30:00 AM, [address] [place] [address], [address] [place] [address], [phone],
--- OUTSIDE RECORDS SUMMARY | 2024-03-29 11:58 | XMS_ITS ---
Author Organization Red Sexton MD Address [address] [place] [phone] Care Team Providers Care Powder Shoveler Name Role Phone Red Sexton Primary Care Provider [phone] REASON FOR VISIT REFILL TRAMADOL MEDICATIONS Medication SIG (Take, Route, Fr equency, Duration) Notes Start Date End Date Status traMADol HCl 50 MG 1 tablet as needed O rally every 12 hrs NEEDED for 30 days 01/28/2024 Act demetrius Encounters Encounter Location Date Provider Diagnosis Red Sexton MD [address] [place] [phone] 01/28/2024 Red Sexton PLAN OF TREATMENT Medication Medication Name Sig Start Date Stop Date Notes traMADol HCl 50 MG 1 tablet as needed O rally every 12 hrs NEEDED for 30 days 01/28/2024 Next Appt Details Provider Name:Red paul, 04/04/2024 10:30:00 AM, [address], Suite [facility], [place], [place], [phone],
--- OUTSIDE RECORDS SUMMARY | 2024-03-29 11:58 | XMS_ITS ---
Author Organization Red Sexton MD Address [address] [place], [place] [phone] Care Team Providers Care Pre Certification Specialist Name Role Phone Red Sexton Primary Care Provider RESULTS Component Value Reference Range Notes Complete Blood Count Auto Di ff (Not yet reviewed by provider) Interpretation: Performing Lab:[facility], [address] [place] [phone] Notes/Report: White Blood Count 5.0 4.8-10.8 X10*3/uL Red Blood Count 4.29 4.20-5.50 X10*6/uL Hemoglobin 12.2 12.0-16.0 g/dl Hematocrit 37.5 37.0-47.0 % Mean Corpuscular Volume 87.4 80.0-98.0 fL Mean Corpuscular Hemoglobin 28.4 27.0-33.0 pg Mean Corpuscular HGB Conc 32.5 31.0-35.0 g/dl Red Cell Distribution Width 17.2 11.0-16.0 % Platelet Count 307 160-400 X10*3/uL Mean Platelet Volume 9.4 9.4-12.3 fL Neutrophils Percent Auto 55.3 45-73 % Imm Gran Pct Auto 0.2 0.0-0.4 % Lymphocytes Percent Auto 29.9 20-40 % Monocytes Percent Auto 11.0 2-11 % Eosinophils Percent Auto 2.4 0-4 % Basophils Percent Auto 1.2 0-2 % NRBC Pct Auto 0.0 0.0-0.2 /100WBC Neutrophils Absolute Auto 2.8 2.0-8.3 x10*3/u L Imm Gran Abs Auto 0.01 0.00-0.03 X10*3/uL Lymphocytes Absolute Auto 1.5 1.2-4.9 X10*3/u L Monocytes Absolute Auto 0.6 0.1-1.2 X10*3/uL Eosinophils Absolute Auto 0.1 0.0-0.4 X10*3/u L Basophils Absolute Auto 0.1 0.0-0.2 X10*3/uL NRBC Abs Auto 0.000 0.0-0.012 X10*3/uL Comprehensive [place]. Panel Fa (Not yet reviewed by provider) Interpretation: Performing Lab:[address] [phone] Notes/Report: Sodium 132 135-145 mmol/L Potassium 4.0 3.3-5.1 mmol/L Chloride 98 96-108 mmol/L Carbon Dioxide 26 22-29 mmol/L Anion Gap 12 12-20 Blood Urea Nitrogen 21 9-16 mg/dL Creatinine 1.02 0.5-1.4 mg/dL Estimated Glomerular Filt Rate 52 Chronic Kidney Disease: Estimated GFR < 60 mL/min/1.73m2 Severe Kidney Disease: Estimated GFR < 15 mL/min/1.73m2 Glucose Fasting 95 60-99 mg/dL Calcium 9.4 8.4-10.2 mg/dL Bilirubin Total 0.4 0.0-1.0 mg/dL Aspartate Amino Transferase 20 5-31 U/L Alanine Aminotransferase 8 0-31 U/L Total Protein 7.3 6.5-8.0 g/dL Albumin Level 4.2 3.5-5.0 g/dL Alkaline Phosphatase 88 39-117 U/L Lipid Panel (Not yet reviewe d by provider) Interpretation: Performing Lab:[facility], [address] [place] [phone] Notes/Report: Triglycerides 105 <150 mg/dL Desirable Triglyceride: less than 150 mg/dL Borderline High Triglyceride 150-199 mg/dL High Triglyceride: 200-499 mg/dL Very High Triglyceride: greater than or equal to 5OO mg/dL Cholesterol 221 <200 mg/dL Desirable Cholesterol: less than 200 mg/dL Borderline High Cholesterol: 200-239 mg/dL High Cholesterol: greater than 239 mg/dL LDL Cholesterol Calculated 137 <100 mg/dL Desirable LDL: less than 100 mg/dL Near Optimal/Above Optimal LDL: 110-129 mg/dL Borderline High LDL: 130-159 mg/dL High LDL: 160-189 mg/dL Very High LDL: greater than or equal to 190 mg/dL HDL Cholesterol 63 >40 mg/dL Desirable HDL: greater than 40 mg/dL Note: This HDL assay may give artificially low results in patients with liver disease. Hemoglobin A1c (Not yet revi ewed by provider) Interpretation: Performing Lab:[address] [phone] Notes/Report: Hemoglobin A1c % 5.0 <6.0 % Hemoglobin A1C Reference Range Adults: 4.8 - 6.0 % Non diabetic: < 6.0 % Goal: < 7.0 % Additional Action Suggested: > 8.0 % Note: Hemoglobin A1c results are invalid for patients with abnormal amounts of HbF. Blood transfusions may impact the HbA1c concentration in the patient sample. Estimated Average Glucose 97 eAG = Estimated average glucose which is %A1C expressed as average glucose, using the formula of the A3L-Peyhind Average Glucose study (ADAG), Diabetes Care, Vol.31,#8, 2007 UA ClnCatch+Micro w/rflx Cul t (Not yet reviewed by provider) Interpretation: Performing Lab:[facility], [address] [place] [phone] Notes/Report: Urine, Clean Catch Color Urine Yellow Appearance Urine Clear PH 7.0 5.0-9.0 Glucose Urine UA Negative Negative mg/dL Urine Blood Negative Negative Specific [place] - Urine 1.015 1.005-1.025 Urine Protein Negative Neg-Trace mg/dL Urine Ketones Negative Negative mg/dL Nitrite Urine Negative Negative Leukocyte Esterase Urine Large (3+) Negative RBC Urine 0-2 0-2 /HPF WBC Urine 21-50 0-5 /HPF Squamous Epithelial Cell Urine 6-10 0-2 /HPF Bacteria Urine None Seen None Seen Hyaline Casts Urine 0-2 0-2 /LPF REASON FOR VISIT yearly fasting labs Encounters Encounter Location Date Provider Diagnosis Red Sexton MD [address] [place] [address] Drive [address] [place], [place] [phone] 03/29/2024 Red Sexton Blood tests for routine general physical examination Z00.00 ; Essential hypertension I10 ; Prediabetes R73.09 and Microcytic anemia D50.9 ASSESSMENTS Encounter Date Diagnosis Assessment Notes Treatment Notes Treatment Clinical Notes 03/29/2024 Blood tests for routine general physical examination (ICD-10 - Z00.00) 03/29/2024 Essential hypertension (ICD-10 - I10) 03/29/2024 Prediabetes (ICD-10 - R73.09) 03/29/2024 Microcytic anemia (ICD-10 - D50.9) PLAN OF TREATMENT Pending Test Test Name Order Date Complete Blood Count Auto Diff Comprehensive [place]. Panel Fast Lipid Panel 03/29/2024 Microalbumin, Random 03/29/2024 Hemoglobin A1c 03/29/2024 UA ClnCatch+Micro w/rflx Cult 03/29/2024 Next Appt Details Provider Name:Red paul, 04/04/2024 10:30:00 AM, [address] [place] [address], [address], [place], [place], [phone],
[2024-03-29 12:21] LABS: Creatinine Urine 43.63 mg/dL; Microalbumin Urine < 5.0 mg/L
== END 2024-03-29 10:35 | disposition home or self-care (01) ==
LOC: HO.LNP 10:34
PROVIDERS: Visit Provider Internal Medicine
DX: Z00.00 Encounter for general adult medical examination without abnormal findings (principal); I10 Essential (primary) hypertension; R73.09 Other abnormal glucose; D50.9 Iron deficiency anemia, unspecified
CPT/HCPCS: 80053; 80061; 81001; 82043; 82570; 83036; 85025; 87086

== ENCOUNTER 2024-06-03 09:25 | Outpatient (REF) | payer MEDICARE, SELFPAY | END 2024-06-03 09:26 | disposition home or self-care (01) | LOC: HO.MAMMO 09:25 | PROVIDERS: PCP Internal Medicine; Referring Provider Obstetrics & Gynecology Gynecology; Visit Provider Internal Medicine | DX: Z12.31 Encounter for screening mammogram for malignant neoplasm of breast (principal) | CPT/HCPCS: 77063; 77067 ==

== ENCOUNTER → 2024-06-03 09:45 | Outpatient (BNV) | payer MEDICARE, SELFPAY | PROVIDERS: PCP Internal Medicine; Referring Provider Obstetrics & Gynecology Gynecology; Visit Provider Internal Medicine | DX: Z12.31 Encounter for screening mammogram for malignant neoplasm of breast (principal) | CPT/HCPCS: 77063; 77067 ==

== ENCOUNTER 2025-02-17 12:56 | Emergency (ER) | payer MEDICARE, SELFPAY ==
--- OUTSIDE RECORDS SUMMARY | 2024-04-04 05:30 | XMS_ITS ---
Author Organization Red Sexton MD Address [address] [place], [place] [id number] Care Team Providers Care Cut Order Hand Name Role Phone Red Sexton Primary Care [...] Omeprazole 20 MG TAKE 1 CAPSULE BY [facility] EVERY DAY Orally Once a day [...] Location Date Provider Diagnosis Red Sexton MD [address] [place] [address] [place] [phone] 04/04/2024 Red Sexton Essential hypertensi on I10 [...] 20 MG TAKE 1 CAPSULE BY [facility] EVERY DAY Orally Once a day [...] Up: 6 Months, Reason: Provider Name:Red paul, 03/30/2025 08:00:00 AM, [address], [address], [place], [place], [phone], Provider Name:Red paul, 04/06/2025 01:00:00 PM, [address], [address], [place], [place], [phone], Progress Notes * Nadege GILMORE MDOB: [birth year] (84 yo F)Acc No.[id number]:04/04/2024 Progress Notes Patient: Nadege HURLEY Provider: Sylvester Sexton MD :1940 A ge:84 Y S ex:Female Date:04/04/2024 Address:[address] [place], [place] [id number] Subjective: * Chief Complaints: * A nnual [...] , 1 daughter(s) . . Father- Atherosclerosis Mother-RI, No pertinent family medical history, Denies mental [...] 10-01-23. * P ast Orders: L ab:Comprehensive [facility]. Panel Fast (Order Date - 03/29/2024) (Collection [...] - mg/dL L ab:Lipid Panel (Order Date - 03/29/2024) (Collection Date & Time - 03/29/2024 08:30 AM) Value Reference Range Triglycerides 105 <150 - mg/dL Cholesterol 221 H <200 - mg/dL LDL Cholesterol Calculated 137 H <100 - mg/dL HDL Cholesterol 63 >40 - mg/dL L ab:Microalbumin, Random (Order Date - 03/29/2024) (Collection Date & [...] to auscultation bilaterally. BREASTS: d one by freight brakeman. ABDOMEN: s oft, nontender, nondistended, bowel sounds present, normal, no organomegaly , no masses palpable. RECTAL EXAM: d one by freight brakeman. FEMALE GENITOURINARY: d one by freight brakeman. EXTREMITIES: n o clubbing, cyanosis, or edema. [...] 0 04/04/2024 Generated for Laura rivera/Mar/[place] on: 04/20/2024 07:11 PM EST History and Physical Notes * [...] had two or more falls in the year?: No Communication Needs Communication Needs Does [...] cyanosi s, or edema BREASTS: done by freight brakeman RECTAL EXAM: done by freight brakeman FEMALE GENITOURINARY: done by freight brakeman ORAL CAVITY: mucosa moist
--- OUTSIDE RECORDS SUMMARY | 2024-05-26 05:05 | XMS_ITS ---
Author Organization Red Sexton MD Address [address] [place] [address] [phone] Care Team Providers Care Land Clearer Name Role Phone Red Sexton Primary Care Provider [phone] REASON FOR VISIT REFILL TRAMADOL Medications Medication SIG (Take, Route, Fr equency, Duration) Notes Start Date End Date Status traMADol HCl 50 MG 1 tablet as needed O rally can take every 12 hours for 30 days 05/26/2024 Active Encounters Encounter Location Date Provider Diagnosis eRd Sexton MD [address] [facility] [address] [place] [address] [phone] 05/26/2024 Red Sexton Plan Of Treatment Medication Medication Name Sig Start Date Stop Date Notes traMADol HCl 50 MG 1 tablet as needed O rally can take every 12 hours for 30 days 05/26/2024 Next Appt Details Provider Name:Red paul, 03/30/2025 08:00:00 AM, [address] [place] [address], [address] [place] [address], [phone], Provider Name:Red paul, 04/06/2025 01:00:00 PM, [address] [place] [address], [place] [address], [place], [place], [phone], Progress Notes * Nadege GILMORE MDOB: [birth year] (84 yo F)Acc No.[id number]:05/26/2024 Patient: Nadege HURLEY :1940 A ge:84 Y S ex:Female Address:[address] [place] [phone] * Refills Refill traMADol HCl Tablet, 50 MG, Orally, 60, 1 tablet as needed, can take every 12 hours, 30 days, Refills=4 * true * Date: Generated for Laura rivera/Mar/[place] on: 04/20/2024 07:10 PM EST
--- OUTSIDE RECORDS SUMMARY | 2024-07-19 11:15 | XMS_ITS ---
Author Organization Red Sexton MD Address [address] [place] [address] [phone] Care Team Providers Care Peer Health Promoter Name Role Phone Red Sexton Primary Care Provider [phone] REASON FOR VISIT DISCUSS MINOXIDIL Encounters Encounter Location Date Provider Diagnosis Red Sexton MD 10 [facility] [address] [place] [phone] 07/19/2024 Red Sexton Plan Of Treatment Next Appt Details Provider Name:Red paul, 03/30/2025 08:00:00 AM, [address] [place] [address], [address] [place] [address], [phone], Provider Name:Red paul, 04/06/2025 01:00:00 PM, [address] [place] [address], [address], [phone], Progress Notes * Nadege GILMORE MDOB: [birth year] (85 yo F)Acc No.[id number]:07/19/2024 Progress Notes Patient: Nadege HURLEY Provider: Sylvester Sexton MD :1940 A ge:84 Y S ex:Female Date:07/19/2024 Address:[address] [place], [place] [phone] Subjective: * Chief Complaints: * 1 . DISCUSS MINOXIDIL. * Medical History: Objective: * Vitals: Assessment: Plan: * Treatment: * * The named appointment provid er may or may not be the originator of this progress note, and it is not deemed complete until electronically signed by the appointment provider. Sign off status: Pending * Provider: Sylvester Sexton MD Date: 0 07/19/2024 Generated for Laura rivera/Mar/[place] on: 1 04/20/2024 07:11 PM EST
--- OUTSIDE RECORDS SUMMARY | 2024-07-25 05:06 | XMS_ITS ---
Author Organization Red Sexton MD Address [address] [place] [phone] Care Team Providers Care Mule Tender Name Role Phone Red Sexton Primary Care Provider REASON FOR VISIT refill Medications Medication SIG (Take, Route, Fr equency, Duration) Notes Start Date End Date Status traMADol HCl 50 MG 1 tablet as needed O rally can take every 12 hours for 30 days 07/25/2024 Active Encounters Encounter Location Date Provider Diagnosis Red Sexton MD [address] [facility] [address] [place] [phone] 07/25/2024 Red Sexton Plan Of Treatment Medication Medication Name Sig Start Date Stop Date Notes traMADol HCl 50 MG 1 tablet as needed O rally can take every 12 hours for 30 days 07/25/2024 Next Appt Details Provider Name:Red paul, 03/30/2025 08:00:00 AM, [address] [place] [address], [address] [place] [address], [phone], Provider Name:Red paul, 04/06/2025 01:00:00 PM, [address] [place] [address], [address], [phone], Progress Notes * Nadege GILMORE MDOB: [birth year] (84 yo F)Acc No.[id number]:07/25/2024 Patient: Nadege HURLEY :1940 A ge:84 Y S ex:Female Address:[address] [place] [phone] * Refills Refill traMADol HCl Tablet, 50 MG, Orally, 60, 1 tablet as needed, can take every 12 hours, 30 days, Refills=2 * true * Date: Generated for Laura rivera/Mar/Ch[place]itting on: 04/20/2024 07:10 PM EST
--- OUTSIDE RECORDS SUMMARY | 2024-08-09 10:39 | XMS_ITS ---
Author Organization Red Sexton MD Address [address] [place] [address] [phone] Care Team Providers Care Care Director Name Role Phone Red Sexton Primary Care Provider [phone] Medications Medication SIG (Take, Route, Frequency, Duration) Notes Start Date End Date Status Potassium Chloride ER 8 MEQ 2 capsules with food Orally Twice a day for 90 days Active Encounters Encounter Location Date Provider Diagnosis Red Sexton MD [address] [facility] [address] [place] [phone] 08/09/2024 Red Sexton Plan Of Treatment Medication Medication Name Sig Start Date Stop Date Notes Potassium Chloride ER 8 MEQ 2 capsules w ith food Orally Twice a day for 90 days Next Appt Details Provider Name:Red paul, 03/30/2025 08:00:00 AM, [address] [place] [address], [address], [phone], Provider Name:Red paul, 04/06/2025 01:00:00 PM, [address] [place] [address], [address], [phone], Progress Notes * Nadege GILMORE MDOB: [birth year] (84 yo F)Acc No.[id number]:08/09/2024 Patient: Nadege HURLEY :1940 A ge:84 Y S ex:Female Address:[address] [place] [phone] * Refills Refill Potassium Chloride ER Tablet Extended Release, 8 MEQ, Orally, 360 Capsule, 2 capsules with food, Twice a day, 90 days, Refills=4 * true * Date: Generated for Laura rivera/Mar/[place] on: 04/20/2024 07:09 PM EST
--- OUTSIDE RECORDS SUMMARY | 2024-09-22 05:40 | XMS_ITS ---
Author Organization Red Sexton MD Address [address] [place] [address] [phone] Care Team Providers Care Maintenance Superintendent Name Role Phone Red Sexton Primary Care Provider REASON FOR VISIT RF Trsamadol Medications Medication SIG (Take, Route, Fr equency, Duration) Notes Start Date End Date Status traMADol HCl 50 MG 1 tablet as needed O rally can take every 12 hours for 30 days 09/22/2024 Active Encounters Encounter Location Date Provider Diagnosis Red Sexton MD [address] [place] [phone] 09/22/2024 Red Sexton Plan Of Treatment Medication Medication Name Sig Start Date Stop Date Notes traMADol HCl 50 MG 1 tablet as needed O rally can take every 12 hours for 30 days 09/22/2024 Next Appt Details Provider Name:Red paul, 03/30/2025 08:00:00 AM, [address] [place] [address], [address] [place] [address], [phone], Provider Name:Red paul, 04/06/2025 01:00:00 PM, [address] [place] [address], [place] [address], [place], [place], [phone], Progress Notes * Nadege GILMORE MDOB: [birth year] (84 yo F)Acc No.[id number]:09/22/2024 Patient: Nadege HURLEY :1940 A ge:84 Y S ex:Female Address:[address] [place] [phone] * Refills Refill traMADol HCl Tablet, 50 MG, Orally, 60, 1 tablet as needed, can take every 12 hours, 30 days, Refills=2 * true * Date: Generated for Laura rivera/Mar/[place] on: 04/20/2024 07:11 PM EST
--- OUTSIDE RECORDS SUMMARY | 2024-10-03 09:15 | XMS_ITS ---
Author Organization Red Sexton MD Address [address] [place], [place] [phone] Care Team Providers Care Fifth Grade Teacher Name Role Phone Red Sexton Primary Care [...] W/U Status Risk Notes Problem Irritable bladder (883745256) Irritable bladder (N32.89) Active confirmed Vital Signs Blood pressure systolic 154 mm Hg 10/04/19 25 Blood pressure diastolic 70 mm Hg 025 Height 68 in 10/03/2024 Weight 182 lbs 10/03/2024 BMI 27.67 kg/m2 10/03/2024 weight is up 2 pounds since 04-04-24 Encounters Encounter Location Date Provider Diagnosis Red Sexton MD [address] [place] [address] [address] [place], [place] [phone] 10/03/2024 Red Sexton Prediabetes R73.09 ; Essential [...] regiment Next Appt Details Provider Name:Red paul, 03/30/2025 08:00:00 AM, [address] [place] [address], [place] [address], [place], [place], [phone], Provider Name:Red paul, 04/06/2025 01:00:00 PM, [address] [place] [address], [place] [address], [place], [place], [phone], Progress Notes * Nadege GILMORE MDOB: [birth year] (84 yo F)Acc No.[id number]:10/03/2024 Progress Notes Patient: Nadege HURLEY Provider: Sylvester Sexton MD :1940 A ge:84 Y S ex:Female Date:10/03/2024 Address:[address] [place], [place] [id number] Subjective: * Chief Complaints: * 6 MO [...] hortness of breath with exertion. G astrointestinal: Levi Aguirre iarrhea. D enies N ausea. * Medical [...] 2947 ASSAY, GLUCOSE, BLOOD QUANT, Modifiers: QW 48952 GLYCATED HEMOGLOBIN TEST, Modifiers: QW * * Sign off status: Completed true * Provider: Sylvester Sexton MD Date: 0 10/03/2024 Generated for Laura rivera/Mar/Chulaitting on: 1 04/20/2024 07:11 PM EST History and Physical [...]
--- OUTSIDE RECORDS SUMMARY | 2024-11-18 05:40 | XMS_ITS ---
Author Organization Red Sexton MD Address [address] [place] [phone] Care Team Providers Care Acid Dumper Name Role Phone Red Sexton Primary Care Provider REASON FOR VISIT rf Tramadol Medications Medication SIG (Take, Route, Fr equency, Duration) Notes Start Date End Date Status traMADol HCl 50 MG 1 tablet as needed O rally can take every 12 hours for 30 days 11/18/2024 Active Encounters Encounter Location Date Provider Diagnosis Red Sexton MD [address] [place] [phone] 11/18/2024 Red Sexton Plan Of Treatment Medication Medication Name Sig Start Date Stop Date Notes traMADol HCl 50 MG 1 tablet as needed O rally can take every 12 hours for 30 days 11/18/2024 Next Appt Details Provider Name:Red paul, 03/30/2025 08:00:00 AM, [address] [place] [address], [address], [phone], Provider Name:Red paul, 04/06/2025 01:00:00 PM, [address] [place] [address], [address], [phone], Progress Notes * Nadege GILMORE MDOB: [birth year] (84 yo F)Acc No.[id number]:11/18/2024 Patient: Nadege HURLEY :1940 A ge:84 Y S ex:Female Address:[address] [place] [phone] * Refills Refill traMADol HCl Tablet, 50 MG, Orally, 60, 1 tablet as needed, can take every 12 hours, 30 days, Refills=2 * true * Date: Generated for Laura rivera/Mar/Chulaitting on: 04/20/2024 07:12 PM EST
--- OUTSIDE RECORDS SUMMARY | 2024-12-01 04:30 | XMS_ITS ---
Author Organization Red Sexton MD Address [address] [place], [place] [phone] Care Team Providers Care Car Repairer Apprentice Name Role Phone Red Sexton Primary Care [...] Omeprazole 20 MG TAKE 1 CAPSULE BY [facility] EVERY DAY Orally Once a day [...] Location Date Provider Diagnosis Red Sexton MD [address] [place] [phone] 12/01/2024 Red Sexton Essential hypertension I10 and [...] Next Appt Details Provider Name:Red Ewing ier, 03/30/2025 08:00:00 AM, [address], [address], [place], [place], [phone], Provider Name:Red Ewing ier, 04/06/2025 01:00:00 PM, [address] [facility], [address], [place], [place], [phone], Progress Notes * Nadege GILMORE MDOB: [birth year] (84 yo F)Acc No.[id number]:12/01/2024 Progress Notes Patient: Nadege HURLEY Provider: Sylvester Sexton MD :1940 A ge:84 Y S ex:Female Date:12/01/2024 Address:[address] [place], [place] [id number] Subjective: * Chief Complaints: * B LOCKED EAR x 1 month * HPI: S ymptom(s): patient is a 84 yo female with complaint of blocked left ear. * ROS: G eneral/Constitutional: Denies Lai hills. D enies F atigue. D enies F ever. D enies H eadache. E NT: Admits B locked ear(s), c /o left blocked ear x 1 month. D enies S ore throat. R espiratory: Levi Hoyt ough. D enies S hortness of breath at rest. D enies S hortness of breath with exertion. G astrointestinal: Denjanet Aguirre iarrhea. D enies N ausea. * [...] MD Date: 0 12/01/2024 Generated for Laura rivera/Mar/Chulaitting on: 04/20/2024 07:10 PM EST History and Physical Notes * [...]
--- OUTSIDE RECORDS SUMMARY | 2025-01-16 09:56 | XMS_ITS ---
Author Organization Red Sexton MD Address [address] [place] [phone] Care Team Providers Care Pattern Data Operator Name Role Phone Red Sexton Primary Care Provider REASON FOR VISIT REFILL TRAMADOL Medications Medication SIG (Take, Route, Fr equency, Duration) Notes Start Date End Date Status traMADol HCl 50 MG 1 tablet as needed O rally can take every 12 hours for 30 days 01/16/2025 Active Encounters Encounter Location Date Provider Diagnosis Red Sexton MD [address] [facility] [address] [place] [phone] 01/16/2025 Red Sexton Plan Of Treatment Medication Medication Name Sig Start Date Stop Date Notes traMADol HCl 50 MG 1 tablet as needed O rally can take every 12 hours for 30 days 01/16/2025 Next Appt Details Provider Name:Red paul, 03/30/2025 08:00:00 AM, [address] [place] [address], [address], [phone], Provider Name:Red paul, 04/06/2025 01:00:00 PM, [address] [place] [address], [address], [phone], Progress Notes * Nadege GILMORE MDOB: [birth year] (85 yo F)Acc No.[id number]:01/16/2025 Patient: Nadege HURLEY :1940 A ge:85 Y S ex:Female Address:[address] [place] [phone] * Refills Refill traMADol HCl Tablet, 50 MG, Orally, 60, 1 tablet as needed, can take every 12 hours, 30 days, Refills=2 * true * Date: Generated for Laura rivera/Mar/Chulaitting on: 04/20/2024 07:11 PM EST
--- NOTE | ~2025-02-17 | CT_ITS ---
EXAMINATION: CT ABDOMEN AND PELVIS WITHOUT CONTRAST CLINICAL INFORMATION: Abdominal pain COMPARISON: None TECHNIQUE: Multidetector volumetric imaging was performed from the superior aspect of the liver through the pubic symphysis. Sagittal and coronal reformatted images were obtained on the technologist's workstation. This CT examination was performed using dose optimization techniques as appropriate, variously including the following: *Automated exposure control *Adjustment of mA and/or kV according to patient size (this includes techniques or standardized protocols for targeted exams where dose is matched to indication/reason for exam; i.e. extremities or head) *Use of iterative reconstruction technique FINDINGS: LUNG BASES: The visualized lung bases are unremarkable. LIVER, GALLBLADDER, AND BILIARY TREE: The liver is normal in size, shape, and attenuation. No focal hepatic lesion or biliary ductal dilatation is present. The gallbladder is nonvisualized and likely surgically absent. There is a small calcification along the medial wall of the bile duct near the gallbladder fossa that is not clearly within the extrahepatic bile duct. PANCREAS: Unremarkable. SPLEEN: Unremarkable. ADRENAL GLANDS: Unremarkable. KIDNEYS AND URETERS: There is a partially exophytic simple cyst in the extra region of the right kidney. There are no stones and no hydronephrosis. BLADDER: It is grossly distended with no thick-walled or abnormal otherwise. GASTROINTESTINAL TRACT: Numerous pseudodiverticula are present in the descending and sigmoid colon. There is a large amount stool in the rectum. The appendix is within normal limits. There is a gastric band around the stomach fundus ABDOMINAL WALL: No significant hernia is appreciated. LYMPH NODES: Normal. VASCULAR: Moderate atherosclerotic calcifications are present. PELVIC VISCERA: Uterus and right ovary are unremarkable. Left ovary is not clearly visualized. 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 CT/CT abdomen pelvis wo IV con IMPRESSION: There is a large amount stool in the rectum. Diverticulosis without sign of infection. Multilevel degenerative disc disease and facet osteoarthritis. Fleischner guidelines were followed. Electronically signed by: Manish Levin MD 02/17/2025 03:14 PM EST
[2025-02-17 13:10] VITALS: BP 170/100; PULSE 98; O2SAT 98
--- NOTE | 2025-02-17 13:19 | ED.ABDPAIN ---
HPI - Abdominal Pain General Chief Complaint: Abdominal Pain Stated Complaint: IMPACTED ABD PAIN Time Seen by Provider: 02/17/25 13:11 Source: patient and EMS Mode of arrival: EMS Limitations: no limitations History of Present Illness ED Provider: CHARLOTTE Amaya HPI narrative: Chief Complaint: ?I haven?t been able to pee since last night and I?m worried because my bowels aren?t moving.? History of Present Illness: 85-year-old patient presents with acute inability to void urine since last night. Last bowel movement was on Thursday (several days ago). Denies nausea or vomiting. Reports a prior episode of severe constipation two weeks in duration, which occurred while taking oxycodone; describes that episode as ?the most horrible thing I ever went through? and now seeks care earlier to avoid recurrence. Denies history of bowel obstruction and denies history of malignancy. States current abdominal discomfort and requests pain control. Starting school soon and wishes to resolve current issues promptly. Related Data Home Medications ?Medication ?Instructions ?Recorded ?Confirmed omeprazole 20 mg capsule,delayed 1 cap PO DAILY 04/11/21 08/13/21 release oxybutynin chloride 5 mg tablet 1 tab PO DAILY 04/11/21 08/13/21 valsartan 80 1 tab PO DAILY 04/11/21 08/13/21 mg-hydrochlorothiazide 12.5 mg tablet estradiol 10 mcg vaginal tablet 1 tab vaginal 3XW 04/12/21 08/13/21 (Yuvafem) hyoscyamine sulfate 0.125 mg 1 tab sublingual Q4H PRN Abdominal 04/12/21 08/13/21 sublingual tablet Pain lorazepam 0.5 mg tablet 1 tab PO Q6H PRN Anxiety 04/12/21 08/13/21 tramadol 50 mg tablet 1 tab PO BID PRN Pain 08/13/21 08/13/21 ibuprofen 800 mg tablet 800 mg PO BID 02/10/22 Previous Rx's ?Medication ?Instructions ?Recorded miscellaneous medical supply #1 ea 04/25/21 docusate sodium 100 mg capsule 100 mg PO BID #20 caps 02/17/25 (Colace) polyethylene glycol 3350 17 17 g PO BID PRN constipation #238 02/17/25 gram/dose oral powder (Miralax) grams Allergies Allergy/AdvReac Type Severity Reaction Status Date / Time Penicillins (PENICILLINS) Allergy Severe ANGIOEDEMA Verified 02/17/25 13:33 azithromycin (AZITHROMYCIN) Allergy Intermediate HIVES/RASH/THRUSH/FINGERNAIL&TOENAIL Verified 02/17/25 13:33 INFECTION Review of Systems Review of Systems Yes all other systems are reviewed and are negative [facility] Past Medical History Attestation statement: The following information was validated with the patient. 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 History of total right knee replacement Social History Social History Household Members: Spouse Housing: House Are you a primary child care attendant to a significant other at home: No Do you presently have visiting nurse or other home services: No Alcohol intake: current Alcohol intake frequency: does not drink Patient Tobacco Use Status: Former Tobacco user Tobacco use type: Cigarette Smoked in Last 30 Days: No Advance Directives: Yes Advance Directives on File: Yes Advance Directives Date on File: 05/13/16 Do you have a plan to hurt others: No Plan service: No Current occupational status: retired Physical Exam ED Exam Exam: Appearance: Alert.? Oriented X3.? No acute distress.? Head: Normocephalic, atraumatic, no step-offs or deformities Eyes: Pupils equal, round and reactive to light.? ENT: Pharynx normal.? Neck: Normal inspection.? Neck supple.? CVS: Normal heart rate and rhythm.? Pulses normal.? Respiratory: No respiratory distress.? Breath sounds normal.? Abdomen: Soft and diffusly tender .? Skin: Skin warm and dry.? Normal skin color.? Normal skin turgor.? Extremities: No lower extremity edema.? No calf ttp. 5/5 strength to bilateral upper and lower extremities Neuro: Oriented X 3.? No motor deficit.? No sensory deficit. CN 2-12 intact Vital Signs: Vital Signs - 24 hr 02/17/25 13:28 02/17/25 17:25 Temperature 97.9 F 97.5 F Pulse Rate 87 83 Respiratory Rate 18 14 Blood Pressure 135/66 117/61 Pulse Oximetry 98 97 Oxygen Delivery Method Room Air Room Air BMI result Body Mass Index 28.1 vss Course Reevaluation(s) Reevaluation #1: CBC with leukocytosis left shift predominance. Chemistry with slightly low sodium. Negative lactic acid. Will give IV hydration at this time Time: 15:56 Reevaluation #2: Patient successfully had a bowel movement after a soapsuds enema. She states she thinks they are still more left however at this time patient can be discharged home. CT scan shows large amount of stool in the rectum diverticulosis without signs of infection. Multilevel degenerative disc disease and facet osteoarthritis. Time: 17:15 Reevaluation #3: Pending urine patient will be discharged home Educated patient on diagnosis and treatment plan, answered all question, patient verbalizes understanding. At this time patient will be discharged home, advised to return with new or worsening symptoms. Educated on worrisome signs and symptoms and when to return. At this time I feel comfortable discharge home. Time: 17:21 Additional Reevaluation(s): 200002/17/2025 Marcy Rodriguez PA-C ---> Patient signed out to me pending a UA. Patient has still not provided a UA. Patient signed out to CHARLOTTE Mixon pending UA and eventual discharge home. February 17, 2025, 8:00 p.m., received sign-out with the patient in stable condition with UA pending. JS. February 17, 2025, 9:10 p.m. urinalysis returned, negative nitrites, negative bacteria. Patient will be discharged per instructions from previous provider. Reviewed all discharge instructions. No further questions at this time. Medical Decision Making Medical Decision Making MDM Narrative: Patient with acute urinary retention and constipation. Abdominal imaging ordered; pain control requested. Problem #1: Acute urinary retention Assessment: Unable to void since last night. No associated nausea/vomiting. Etiology unclear; needs imaging and further evaluation. Plan: Order abdominal imaging (pending). Provide analgesia per ED protocol. Reassess following imaging results. 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 Plan: Include in abdominal imaging evaluation. Symptomatic treatment to be determined after imaging (laxatives/enema vs other interventions). Differential Diagnosis Differential Diagnoses: The differential diagnosis associated with the presentation includes Acute Urinary Retention: Urinary tract infection Neurogenic bladder --> unlikely Medication side effects Urethral obstruction (e.g., stone, stricture) Constipation: Opioid-induced constipation Functional constipation Bowel obstruction Metabolic causes (e.g., hypothyroidism, hypercalcemia) Medication side effects Lab Data MDM Lab Attestation statement: I reviewed the patient's lab results. 02/17/25 13:59 02/17/25 13:59 Labs: Lab Results 02/17/25 02/17/25 02/17/25 Range/Units 13:59 15:17 20:42 WBC 14.4 H (4.8-10.8) X10*3/uL RBC 4.69 (4.20-5.50) X10*6/uL Hgb 14.6 (12.0-16.0) g/dl Hct 43.3 (37.0-47.0) % MCV 92.3 (80.0-98.0) fL MCH 31.1 (27.0-33.0) pg MCHC 33.7 (31.0-35.0) g/dl RDW 14.2 (11.0-16.0) % Plt Count 323 (160-400) X10*3/uL MPV 9.0 L (9.4-12.3) fL Immature Gran % (Auto) 0.8 H (0.0-0.4) % Neut % (Auto) 80.1 H (45-73) % Lymph % (Auto) 8.3 L (20-40) % Mchenry % (Auto) 10.5 (2-11) % Eos % (Auto) 0.2 (0-4) % Baso % (Auto) 0.1 (0-2) % Lymph # (Auto) 1.2 (1.2-4.9) X10*3/uL Mchenry # (Auto) 1.5 H (0.1-1.2) X10*3/uL Eos # (Auto) 0.0 (0.0-0.4) X10*3/uL Baso # (Auto) 0.0 (0.0-0.2) X10*3/uL Abs Immat Gran (auto) 0.11 H (0.00-0.03) X10*3/uL Absolute Neuts (auto) 11.5 H (2.0-8.3) x10*3/uL Absolute Nucleated RBC 0.000 (0.0-0.012) X10*3/uL Nucleated RBC % (auto) 0.0 (0.0-0.2) /100WBC Smear Tech's Comments VERIFIED Sodium 128 L (135-145) mmol/L Potassium 4.7 (3.3-5.1) mmol/L Chloride 97 (96-108) mmol/L Carbon Dioxide 24 (22-29) mmol/L Anion Gap 12 (12-20) BUN 32 H (9-16) mg/dL Creatinine 1.08 (0.5-1.4) mg/dL Estim Creat Clear Calc 43.9 Estimated GFR 48 Random Glucose 110 (60-115) mg/dL Lactic Acid 1.2 (0.5-2.0) mmol/L Calcium 8.9 (8.4-10.2) mg/dL Magnesium 2.6 (1.6-2.6) mg/dL Total Bilirubin 0.7 (0.0-1.0) mg/dL AST 17 (5-31) U/L ALT 11 (0-31) U/L Alkaline Phosphatase 78 (39-117) U/L Total Protein 6.6 (6.5-8.0) g/dL Albumin 4.1 (3.5-5.0) g/dL Urine Color Yellow Urine Appearance Clear Urine pH 7.5 (5.0-9.0) Ur Specific Preston 1.010 (1.005-1.025) Urine Protein Negative (Neg-Trace) mg/dL Urine Glucose (UA) Negative (Negative) mg/dL Urine Ketones Negative (Negative) mg/dL Urine Blood Small (1+) H (Negative) Urine Nitrite Negative (Negative) Ur Leukocyte Esterase Trace H (Negative) Urine RBC 0-2 (0-2) /HPF Urine WBC 0-5 (0-5) /HPF Ur Squamous Epith Cells 0-2 (0-2) /HPF Urine Bacteria Trace (None Seen) Hyaline Casts 0-2 (0-2) /LPF Urine Yeast Present Independent Interpretation I performed an independent interpretation of an: CT Scan Interpretation: CT/CT abdomen pelvis wo IV con IMPRESSION: There is a large amount stool in the rectum. Diverticulosis without sign of infection. Multilevel degenerative disc disease and facet osteoarthritis. Fleischner guidelines were followed. Radiology Impression Discussion of test interpretation with radiology: I have reviewed the radiologist's reading. External Record Review External record reviewed: Inpatient record, Office record, Outpatient record, Prior outpatient labs, Prior outpatient radiology, Primary care record and Outside ED record Chronic Conditions Patient?s care impacted by: Other (see pmfsh ) Medications Administered Discontinued Medications Generic Name Dose Route Start Last Admin Trade Name Freq PRN Reason Stop Dose Admin Sodium Chloride 1,000 mls @ 999 mls/hr 02/17/25 16:00 02/17/25 18:15 Ns IV 02/17/25 17:00 Infused .Q1H1M ELISHA Infusion Critical Care Time Critical Care Time Critical Care Time: No Discharge Plan Discharge Clinical Impression: Constipation Patient Disposition: Home, Self-Care Instructions: Constipation (ED), High Fiber Diet (ED), Fleet Enema (ED) Additional Instructions: Your urine test today is OK. Take your medications as prescribed. If you were prescribed antibiotics today, it is important that you take your medication to their entirety, do not skip any doses, do not finish them early. Follow-up with your primary care provider this week. Return to the emergency department with new or worsening symptoms. Such as fevers, chills, chest pain, shortness of breath, nausea, vomiting, dizziness, headache, vision changes, lethargy In case of emergency call 911 Prescriptions: New docusate sodium [Colace] 100 mg capsule 100 mg PO BID Qty: 20 0RF polyethylene glycol 3350 [Miralax] 17 gram/dose powder 17 g PO BID PRN (Reason: constipation) Qty: 238 0RF No Action (DME) miscellaneous medical supply Misc See Rx Instructions .MEDSUPPLY Qty: 1 0RF Rx Instructions: Bedside Commode tramadol 50 mg tablet 1 tab PO BID PRN (Reason: Pain) valsartan-hydrochlorothiazide 80-12.5 mg tablet 1 tab PO DAILY omeprazole 20 mg capsule,delayed release(DR/EC) 1 cap PO DAILY oxybutynin chloride 5 mg tablet 1 tab PO DAILY lorazepam 0.5 mg tablet 1 tab PO Q6H PRN (Reason: Anxiety) estradiol [Yuvafem] 10 mcg tablet 1 tab vaginal 3XW hyoscyamine sulfate 0.125 mg tablet, sublingual 1 tab sublingual Q4H PRN (Reason: Abdominal Pain) ibuprofen 800 mg tablet 800 mg PO BID Referrals: Red Sexton MD [Primary Care Provider, Medical] Print Language: Tamazight
[2025-02-17 13:28] VITALS: BP 135/66; PULSE 87; RESP 18; TEMP 36.6; O2SAT 98; BMI 28.1
[2025-02-17 14:07] LABS: Hematocrit 43.3 % (37.0-47.0); Hemoglobin 14.6 g/dl (12.0-16.0); Imm Gran Abs Auto 0.11 X10*3/uL (0.00-0.03); Imm Gran Pct Auto 0.8 % (0.0-0.4); Lymphocytes Absolute Auto 1.2 X10*3/uL (1.2-4.9); MANUAL DIFF FLAG SCAN; Mean Corpuscular HGB Conc 33.7 g/dl (31.0-35.0); Mean Corpuscular Hemoglobin 31.1 pg (27.0-33.0); Mean Corpuscular Volume 92.3 fL (80.0-98.0); NRBC Abs Auto 0.000 X10*3/uL (0.0-0.012); NRBC Pct Auto 0.0 /100WBC (0.0-0.2); Platelet Count 323 X10*3/uL (160-400); Red Blood Count 4.69 X10*6/uL (4.20-5.50); SCAN SMEAR FLAG 1; White Blood Count 14.4 X10*3/uL (4.8-10.8)
[2025-02-17 14:21] LABS: Alanine Aminotransferase 11 U/L (0-31); Albumin Level 4.1 g/dL (3.5-5.0); Alkaline Phosphatase 78 U/L (39-117); Anion Gap 12 (12-20); Aspartate Amino Transferase 17 U/L (5-31); Blood Urea Nitrogen 32 mg/dL (9-16); Calcium 8.9 mg/dL (8.4-10.2); Carbon Dioxide 24 mmol/L (22-29); Chloride 97 mmol/L (96-108); Creatinine Clr Calc Pharmacy 43.9; Estimated Glomerular Filt Rate 48; Magnesium 2.6 mg/dL (1.6-2.6); Potassium 4.7 mmol/L (3.3-5.1); Sodium 128 mmol/L (135-145); Total Protein 6.6 g/dL (6.5-8.0)
[2025-02-17 17:25] VITALS: BP 117/61; PULSE 83; RESP 14; TEMP 36.4; O2SAT 97
--- OUTSIDE RECORDS SUMMARY | 2025-02-17 19:10 | XMS_ITS | Clinical Summary ---
Author Organization [facility] Address [id number] [place] [id number] Care Team Providers Care Service Manager Name Role Phone Red Sexton MD Primary Care Provider Surgical History Surgery Date Site/Laterality Comments CHOLECYSTECTOMY [...] drink = 0.6 oz pur e alcohol) Comments Unknown Sex and Gender Information Value Date Recorded Sex Assigned at Not on file Legal Sex Female 10:16 PM EST Gender Identity Not on file Sexual Orientation Not on file Plan of Treatment Health Maintenance Due Date Last Done Comments DTaP,Tdap,and Td Vaccines (1 - Tdap) 01[birth year]03/1960 Pneumococcal Vaccine: 50+ Ye ars (1 of 1 - PCV) 1991 Zoster Vaccines (1 of 2) 1991 RSV Immunization Adult Patie nts (1 - 1-dose 75+ series) 01/03/2016 Depression Screening 03/09/2024 COVID-19 Vaccine ( - 2024-2 6 season) 2024 Influenza Vaccine (#1) 2024 HIB Vaccines Aged Out No longer eligi [...] patient's age to complete this topic Meningococcal B Vaccine Aged Out No l onger eligible based on patient's age to complete this topic RSV Immunization Patients Un nereida 20 months Aged Out No longer eligible b ased on patient's age to complete this topic Varicella Vaccines Aged Out No longer eligible based on patient's age to complete this topic Care Teams Service Manager Relationship Specialty Start Date End Date Red Sexton MD PCP - General Internal Medicine 08/12/17
--- OUTSIDE RECORDS SUMMARY | 2025-02-17 19:10 | XMS_ITS | Patient Health Record ---
Author Organization Red Sexton MD Address [address] [place], [place] [id number] Care Team Providers Care Enrichment Director Name Role Phone Red Sexton Primary Care Provider [phone] Allergies Allergen (clinical drug ingredient) Drug/Non Drug Allergy documented on EMR Reaction Allergy Type Onset Date Status azithromycin Zithromax Unknown Drug Allergy Acti ve penicillin V Penicillin V Potassium swelling Drug Allergy Active sulfamethoxazole / trimethoprim Bactrim DS Unknown Drug Allergy Active Results Component Value Reference Range Notes Hemoglobin A1c Reviewed date:10/03/2024 02:30:15 PM Interpretation: Performing Lab: Notes/Report: Hemoglobin A1c 5.1 Complete Blood Count Auto Di ff Reviewed date:03/29/2024 01:21:01 PM Interpretation: Performing Lab:[facility], [address] [place] [phone] Notes/Report: White Blood Count 5.0 4.8-10.8 X10*3/uL [...] NRBC Abs Auto 0.000 0.0-0.012 X10*3/uL Comprehensive [place]. Panel Fa st Reviewed date:03/29/2024 01:20:27 PM Interpretation: Performing Lab:[facility], [address] [place] [phone] Notes/Report: Sodium 132 135-145 mmol/L Potassium 4.0 [...] Alkaline Phosphatase 88 39-117 U/L Lipid Panel Reviewed date:03/29/2024 12:35:19 PM Interpretation: Performing Lab:[facility], [address] [place] [phone] Notes/Report: Triglycerides 105 <150 mg/dL Desirable Triglyceride: [...] low results in patients with liver disease. Microalbumin, Random Reviewed date:03/29/2024 12:40:06 PM Interpretation: Performing Lab:[facility], [address] [place] [phone] Notes/Report: Creatinine Urine 43.63 Microalbumin Urine < 5.0 Microalbum/Creatinine Ratio Ur TNP <30 ug/mg cr Unable to calculate albumin/creatinine ratio due to low microalbumin or creatinine result. Hemoglobin A1c Reviewed date:03/29/2024 12:35:34 PM Interpretation: Performing Lab:[facility], [address] [place] [phone] Notes/Report: Hemoglobin A1c % 5.0 <6.0 % [...] average glucose, using the formula of the T6X-Vglhbwx Average Glucose study (ADAG), Diabetes Care, Vol.31,#8, Oct. 2007 UA ClnCatch+Micro w/rflx Cul t Reviewed date:03/29/2024 04:36:56 PM Interpretation: Performing Lab:[facility], [address] [place] [phone] Notes/Report: Urine, Clean Catch Color Urine Yellow Appearance Urine Clear PH 7.0 5.0-9.0 Glucose Urine UA Negative Negative mg/dL Urine Blood Negative Negative Specific Wallace - Urine 1.015 1.005-1.025 Urine Protein Negative Neg-Trace mg/dL Urine Ketones Negative Negative mg/dL Nitrite Urine Negative Negative Leukocyte Esterase Urine Large (3+) Negative RBC Urine 0-2 0-2 /HPF WBC Urine 21-50 0-5 /HPF Squamous Epithelial Cell Urine 6-10 0-2 /HPF Bacteria Urine None Seen None Seen Hyaline Casts Urine 0-2 0-2 /LPF Glucose, finger stick Reviewed date:10/03/2024 02:20:17 PM Interpretation: Performing Lab: Notes/Report: Value 115 Urine Culture Reviewed date:03/31/2024 05:51:34 PM Interpretation: Performing Lab:[facility], [address] [place] [phone] Notes/Report: Urine Culture Report Result Urine Culture 50,000 to 100,000 cfu/ml Urine Culture Mixed bacterial yfn a characteristic of Urine Culture urogenital contamination. MM tomosynthesis screening B I Reviewed date:06/12/2024 10:00:51 AM Interpretation: Performing Lab: Notes/Report: [facility] [address] [place] [address] Mammography Report Signed Patient: Nadege Ramos MR#: [id number] : 1940 Acct:[id number] Age/Sex: 84 / F ADM Date: 06/03/24 Loc: MAMMO Attending Dr: Red Sexton MD Ordering Physician: Red Sexton MD Results: 1Ne gative Date of Service: 06/03/24 Follow Up: 1 Year From Orig inal Mammogram Procedure(s): MM tomosynthesis screening BI Accession Number(s): [id number] cc: Red Sexton MD EXAMINATION: MM SCREENING DIGITAL BREAST TOMOSYNTHESIS, BILATERAL CLINICAL INFORMATION: Screening. Asymptomatic. COMPARISON: Mammography: Comparison is made with available priors TECHNIQUE: Digital breast mammography with tomosynthesis is performed in both the craniocaudal and mediolateral oblique views along with computer-aided detection (CAD). FINDINGS: There are scattered areas of fibroglandular density (ACR BI-RADS breast composition Category b). There are no significant masses, abnormal calcifications, or other abnormalities. MM/MM tomosynthesis screening BI IMPRESSION: No mammographic evidence of malignancy. ASSESSMENT: BI-RADS BI-RADS 1 - Negative RECOMMENDATION: Routine annual mammography screening. 1 year F/U This examination should not preclude the clinical evaluation of a suspicious palpable abnormality. This patient's information was entered into a reminder system with a target due date for their next mammogram. Electronically signed by: Erika Dickey DO 06/11/2024 02:40 PM EDT Dictated By: Erika Dickey DO Signed By: <Electronically signed by Erika Dickey DO in OV> 06/11/24 1440 DD/ 0945 TD/TT: 06/03/24 1010 Engagement Executive: [facility] [address] [place] [address] Mammography Report Signed Patient: Milton Ramos MR#: [id number] : 1940 Acct:[id number] Age/Sex: 84 / F ADM Date: 06/03/24 Loc: HO.MAMMO Attending Dr: Red Sexton MD Ordering Physician: Red Sexton MD Results: 1Ne gative Date of Service: 06/03/24 Follow Up: 1 Year From Orig inal Mammogram Procedure(s): MM tomosynthesis screening BI Accession Number(s): [id number] cc: Red Sexton MD EXAMINATION: MM SCREENING DIGITAL BREAST TOMOSYNTHESIS, BILATERAL CLINICAL INFORMATION: Screening. Asymptomatic. COMPARISON: Mammography: Compari son is made with available priors TECHNIQUE: Digital breast mammography with tomosynthesis is performed in both the craniocaudal and mediolateral oblique views along with computer-aided detection (CAD). FINDINGS: There are scattered areas of fibroglandular density (ACR BI-RADS breast composition Category b). There are no signifi cant masses, abnormal calcifications, or other abnormalities. M M/MM tomosynthesis screening BI IMPRESSION: No mammographic evid ence of malignancy. ASSESSMENT: BI-RADS BI-RADS 1 - Negative RECOMMENDATION: Routine annual mammography screening. 1 year F/U This examination emili uld not preclude the clinical evaluation of a suspicious palpable abnormality. This patient's information was entered into a reminder system with a target due date for their next mammogram. Electronically kike d by: Erika Dickey DO 06/11/2024 02:40 PM EDT RP Dictated By: Erika Dickey DO Signed By: <Electronically signed by Erika Dickey DO in OV> 06/11/24 1440 DD/ 0945 TD/TT: 06/03/24 1010 Engagement Executive: Complete Blood Count Auto Di ff Reviewed date:02/17/2025 05:50:28 PM Interpretation: Performing Lab:[facility], [address] [place] [phone] Notes/Report: White Blood Count 14.4 4.8-10.8 X10*3/uL Red Blood Count 4.69 4.20-5.50 X10*6/uL Hemoglobin 14.6 12.0-16.0 g/dl Hematocrit 43.3 37.0-47.0 % Mean Corpuscular Volume 92.3 80.0-98.0 fL Mean Corpuscular Hemoglobin 31.1 27.0-33.0 pg Mean Corpuscular HGB Conc 33.7 31.0-35.0 g/dl Red Cell Distribution Width 14.2 11.0-16.0 % Platelet Count 323 160-400 X10*3/uL Mean Platelet Volume 9.0 9.4-12.3 fL Neutrophils Percent Auto 80.1 45-73 % Imm Gran Pct Auto 0.8 0.0-0.4 % Lymphocytes Percent Auto 8.3 20-40 % Monocytes Percent Auto 10.5 2-11 % Eosinophils Percent Auto 0.2 0-4 % Basophils Percent Auto 0.1 0-2 % NRBC Pct Auto 0.0 0.0-0.2 /100WBC Neutrophils Absolute Auto 11.5 2.0-8.3 x10*3/u L Imm Gran Abs Auto 0.11 0.00-0.03 X10*3/uL Lymphocytes Absolute Auto 1.2 1.2-4.9 X10*3/u L Monocytes Absolute Auto 1.5 0.1-1.2 X10*3/uL Eosinophils Absolute Auto 0.0 0.0-0.4 X10*3/u L Basophils Absolute Auto 0.0 0.0-0.2 X10*3/uL NRBC Abs Auto 0.000 0.0-0.012 X10*3/uL White Blood Count 14.4 4.8-10.8 X10*3/uL Red Blood Count 4.69 4.20-5.50 X10*6/uL Hemoglobin 14.6 12.0-16.0 g/dl Hematocrit 43.3 37.0-47.0 % Mean Corpuscular Volume 92.3 80.0-98.0 fL Mean Corpuscular Hemoglobin 31.1 27.0-33.0 pg Mean Corpuscular HGB Conc 33.7 31.0-35.0 g/dl Red Cell Distribution Width 14.2 11.0-16.0 % Platelet Count 323 160-400 X10*3/uL Mean Platelet Volume 9.0 9.4-12.3 fL Neutrophils Percent Auto 80.1 45-73 % Imm Gran Pct Auto 0.8 0.0-0.4 % Lymphocytes Percent Auto 8.3 20-40 % Monocytes Percent Auto 10.5 2-11 % Eosinophils Percent Auto 0.2 0-4 % Basophils Percent Auto 0.1 0-2 % NRBC Pct Auto 0.0 0.0-0.2 /100WBC Neutrophils Absolute Auto 11.5 2.0-8.3 x10*3/u L Imm Gran Abs Auto 0.11 0.00-0.03 X10*3/uL Lymphocytes Absolute Auto 1.2 1.2-4.9 X10*3/u L Monocytes Absolute Auto 1.5 0.1-1.2 X10*3/uL Eosinophils Absolute Auto 0.0 0.0-0.4 X10*3/u L Basophils Absolute Auto 0.0 0.0-0.2 X10*3/uL NRBC Abs Auto 0.000 0.0-0.012 X10*3/uL CO RRECTED REPORT CO RRECTED REPORT Comprehensive Met. Panel Reviewed date:02/17/2025 05:51:41 PM Interpretation: Performing Lab:[facility], [address] [place] [phone] Notes/Report: Sodium 128 135-145 mmol/L Potassium 4.7 3.3-5.1 mmol/L Chloride 97 96-108 mmol/L Carbon Dioxide 24 22-29 mmol/L Anion Gap 12 12-20 Blood Urea Nitrogen 32 9-16 mg/dL Creatinine 1.08 0.5-1.4 mg/dL Creatinine Clr Calc Pharmacy 43.9 Provided height and weight: 172.72 cm, 83.915 kg. eGFR (calculated from the MDRD study equation) and eCrCl (calculated from the Cockcroft-Gault equation) are based on different parameters and may not yield comparable results. If eCrCl result is absurd, please check patient's height/weight. Estimated Glomerular Filt Rate 48 Chronic Kidney Disease: Estimated GFR < 60 mL/min/1.73m2 Severe Kidney Disease: Estimated GFR < 15 mL/min/1.73m2 Glucose Random 110 60-115 mg/dL Calcium 8.9 8.4-10.2 mg/dL Bilirubin Total 0.7 0.0-1.0 mg/dL Aspartate Amino Transferase 17 5-31 U/L Alanine Aminotransferase 11 0-31 U/L Total Protein 6.6 6.5-8.0 g/dL Albumin Level 4.1 3.5-5.0 g/dL Alkaline Phosphatase 78 39-117 U/L Lactic Acid Reviewed date:02/17/2025 05:27:28 PM Interpretation: Performing Lab:[facility], [address] [place] [phone] Notes/Report: Lactic Acid 1.2 0.5-2.0 mmol/L Magnesium Reviewed date:02/17/2025 05:39:51 PM Interpretation: Performing Lab:[facility], [address] [place] [phone] Notes/Report: Magnesium 2.6 1.6-2.6 mg/dL SLIDE REVIEW Reviewed date:02/17/2025 05:29:25 PM Interpretation: Performing Lab:[facility], [address] [place] [phone] Notes/Report: SLIDE REVIEW VERIFIED CT abdomen pelvis wo con Reviewed date:02/17/2025 05:29:06 PM Interpretation: Performing Lab: Notes/Report: [address] [address] [address] Scan Report Signed Patient: Nadege Ramos MR#: [id number] : 1940 Acct:[id number] Age/Sex: 85 / F ADM Date: 02/17/25 Loc: .ED Attending Dr: Ordering Physician: Fredi Amaya Date of Service: 02/17/25 Procedure(s): CT abdomen pelvis wo IV con Accession Number(s): [id number] cc: Red Sexton MD; Fredi Amaya Report Number: [id number]: Total DLP = 633.00 mGy-cm Reason for Exam: abd pain EXAMINATION: CT ABDOMEN AND PELVIS WITHOUT CONTRAST CLINICAL INFORMATION: Abdominal pain COMPARISON: None TECHNIQUE: Multidetector volumetric imaging was performed from the superior aspect of the liver through the pubic symphysis. Sagittal and coronal reformatted images were obtained on the technologist's workstation. This CT examination was performed using dose optimization techniques as appropriate, variously including the following: *Automated exposure control *Adjustment of mA and/or kV according to patient size (this includes techniques or standardized protocols for targeted exams where dose is matched to indication/reason for exam; i.e. extremities or head) *Use of iterative reconstruction technique FINDINGS: LUNG BASES: The visualized lung bases are unremarkable. LIVER, GALLBLADDER, AND BILIARY TREE: The liver is normal in size, shape, and attenuation. No focal hepatic lesion or biliary ductal dilatation is present. The gallbladder is nonvisualized and likely surgically absent. There is a small calcification along the medial wall of the bile duct near the gallbladder fossa that is not clearly within the extrahepatic bile duct. PANCREAS: Unremarkable. SPLEEN: Unremarkable. ADRENAL GLANDS: Unremarkable. KIDNEYS AND URETERS: There is a partially exophytic simple cyst in the extra region of the right kidney. There are no stones and no hydronephrosis. BLADDER: It is grossly distended with no thick-walled or abnormal otherwise. GASTROINTESTINAL TRACT: Numerous pseudodiverticula are present in the descending and sigmoid colon. There is a large amount stool in the rectum. The appendix is within normal limits. There is a gastric band around the stomach fundus ABDOMINAL WALL: No significant hernia is appreciated. LYMPH NODES: Normal. VASCULAR: Moderate atherosclerotic calcifications are present. PELVIC VISCERA: Uterus and right ovary are unremarkable. Left ovary is not clearly visualized. 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 CT/CT abdomen pelvis wo IV con IMPRESSION: There is a large amount stool in the rectum. Diverticulosis without sign of infection. Multilevel degenerative disc disease and facet osteoarthritis. Fleischner guidelines were followed. Electronically signed by: Manish Levin MD 02/17/2025 03:14 PM [facility] Dictated By: Manish Levin MD Signed By: <Electronically signed by Manish Levin MD in OV> 02/17/25 1514 DD/ 1454 TD/TT: 02/17/25 1501 Engagement Executive: [address] [address] [address] Scan Report Signed Patient: Milton Ramos MR#: [id number] : 1940 Acct:[id number] Age/Sex: 85 / F ADM Date: 02/17/25 Loc: HO.ED Attending Dr: Ordering Physician: Fredi Amaya Date of Service: 02/17/25 Procedure(s): CT abd omen pelvis wo IV con Accession Number(s): [id number] cc: Red Sexton MD; Fredi Amaya Report Number: [id number]: Total DLP = 633.00 mGy-cm Reason for Exam: abd pain EXAMINATION: CT ABDOMEN AND PELVI S WITHOUT CONTRAST CLINICAL INFORMATION: Abdominal pain COMPARISON: None TECHNIQUE: Multidetector volume tric imaging was performed from the superior aspect of the liver through the pubic symphysis. Sagittal and coronal reformatted images w ere obtained on the technologist's workstation. This CT examination was performed using dose optimization techniques as appropriate, various ly including the following: *Automated exposure control *Adjustment of mA an d/or kV according to patient size (this includes techniques or standardized protocols for targeted exams where dose is matched to indication/reason for exam; i.e. extremities or head) *Use of iterative reconstruction technique FINDINGS: LUNG BASES: The visualized lung bases are unremarkable. LIVER, GALLBLADDER, AND BILIARY TREE: The liver is normal in size, shape, and attenuati on. No focal hepatic lesion or biliary ductal dilatation is present. The gallbladder is nonvisualized and likely surgically absent. There is a small calcification along the medial wall of the bile duct near the gallbladder fossa that is not clearly within the extrahepatic bile duct. PANCREAS: Unremarkable. SPLEEN: Unremarkable. ADRENAL GLANDS: Unremarkable. KIDNEYS AND URETERS: There is a partially exophytic simple cyst in the extra region of the right kidney. There are no stones and no hydronephrosis. BLADDER: It is gross ly distended with no thick-walled or abnormal otherwise. GASTROINTESTINAL TRA CT: Numerous pseudodiverticula are present in the descending and sigmo id colon. There is a large yanna unt stool in the rectum. The appendix is with in normal limits. There is a gastric b and around the stomach fundus ABDOMINAL WALL: No significant hernia is appreciated. LYMPH NODES: Normal. VASCULAR: Moderate atherosclerotic calcifications are present. PELVIC VISCERA: Uter us and right ovary are unremarkable. Left ovary is not clearly visualized. 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 C T/CT abdomen pelvis wo IV con IMPRESSION: There is a large yanna unt stool in the rectum. Diverticulosis witho ut sign of infection. Multilevel degenerat demetrius disc disease and facet osteoarthritis. Fleischner guideline s were followed. Electronically kike d by: Manish Levin MD 02/17/2025 03:14 PM EST Dictated By: Manish Levin MD Signed By: <Electronically signed by Manish Levin MD in OV> 02/17/25 1514 DD/ 1454 TD/TT: 02/17/25 1501 Engagement Executive: Reason For Referral No Information Medications Medication SIG (Take, Route, Frequency, Duration) Notes Start Date End Date Status Aspirin 325 MG 1 tablet Orally Once a day Not-Taking Hyoscyamine Sulfate 0.125 MG TAKE 1 TABLET UNDER THE TONGUE EVERY 4 HOURS EVERY 12 HRS NEEDED ORALLY 30 DAYS Orally Three times a day Not-Taking LORazepam 0.5 MG 1 tablet as needed Orally Twice a day for 5 days 05/24/2021 Not-Taking Valsartan-hydroCHLOROthia zide 80-12.5 MG TAKE 1 TABLET BY MOUTH EVERY DAY Orally Once a day for 90 days Active Fluticasone Propionate 50 MCG/ACT 1 spray in each nostril Nasally Twice a day for 30 days 12/01/2024 Active Potassium Chloride ER 8 MEQ 2 capsules with food Orally Twice a day for 90 days Active Omeprazole 20 MG TAKE 1 CAPSULE BY [facility] EVERY DAY Orally Once a day Active Betamethasone Dipropionate 0.05 % 1 application to affected area Externally Once a day for 30 days 10/14/2012 Not-Taking Tylenol 8 Hour Arthritis Pain 650 MG 2 tablets as needed Orally twice a day for 30 days 04/04/2024 Active Fioricet 50-300-40 MG 1 capsule as neede d Orally every 4 hrs Not-Taking Yuvafem 10 MCG 1 tablet Vaginal QOD Active Senna Lax 8.6 MG 2 tablets at bedtime as needed Orally Once a day Not-Taking traMADol HCl 50 MG 1 tablet as needed Orally can take every 12 hours for 30 days 01/16/2025 Active Hyoscyamine Sulfate ER 0.375 MG 1 tablet Orally every 12 hrs 06/11/2023 Active oxyBUTYnin Chloride 5 MG TAKE 1 TABLET ( 5MG) BY MOUTH ONCE A DAY FOR 90 DAYS. Orally Once a day for 90 days Active Immunizations Vaccine Route Administration Date Status Comme nts Flu Vaccine IM Intramuscular 11/14/2010 Administered Flu Vaccine Unknown 01/04/2012 Administered PPSV23 (Pnemovax) IM Intramuscular 10/05/2012 Administered Shingles Unknown 10/18/2013 Administered [facility] Flu Vaccine Unknown 12/13/2013 Administered [facility] Flu Vaccine IM Intramuscular 12/04/2014 Administered TDaP IM Intramuscular 04/17/2015 Administered Fluarix Quadrivalent IM Intramuscular 11/27/2015 Administe red Fluarix Quadrivalent IM Intramuscular 12/16/2016 Administe red Prevnar 13 IM Intramuscular 01/12/2017 Administered Fluarix Quadrivalent IM Intramuscular 01/05/2018 Administe red PPSV23 (Pnemovax) IM Intramuscular 01/19/2018 Administered Influenza High Dose IM Intramuscular 12/09/2018 Administer ed pt was given the vaccine at [facility] on [facility]. Influenza High Dose IM Intramuscular 10/27/2019 Administer ed Pt was given the vaccine at [facility] SARS-COV-2 Moderna Unknown 04/10/2020 Administered SARS-COV-2 Moderna Unknown 05/08/2020 Administered SARS-COV-2 Moderna Unknown 01/01/2021 Administered Fluarix Quadrivalent Unknown 12/07/2020 Administered [facility] SARS-COV-2 Moderna Unknown 06/13/2021 Administered [facility] Influenza High Dose IM Intramuscular 12/02/2022 Administer ed RSV Unknown 01/15/2023 Administered [facility] Influenza High Dose IM Intramuscular 11/17/2023 Administer ed Shingrix Unknown 01/25/2018 Refused Social History Tobacco Use: Social History Observation [...] ast year? No Points 0 Interpretation Negative Problems Problem Type SNOMED Code ICD Code Onset Dates Problem Status W/U Status Risk Notes Problem 69565989 Anxiety (F41.9) Active confirmed Problem 239290949 Low back pain (M54.5) Active confirmed Problem 335815158 Body mass index (BMI) 30.0-30.9, adult (Z68.30) Active confirmed Problem 761829625 Gastroesophageal reflux disease without esophagitis (K21.9) Active confirmed Problem 25771367 Essential hypertension (I10) Active confirmed Problem 7628797 Prediabetes (R73.09) Active confirmed Problem 325746079 Non morbid obesi ty due to excess calories (E66.09) Active confirmed Problem 05682038 Heart murmur (R01.1) Active confirmed Problem 652728403 Other elevated w iraj blood cell (WBC) count (D72.828) Active confirmed Problem 43622294 Sciatica of left side (M54.32) Active confirmed Problem 365618141 Irritable bowel syndrome with constipation (K58.1) Active confirmed Problem Microcytic anemia (588045028) Microcytic anemia (D50.9) Active confirmed Problem Irritable bladder (328938649) Irritable bladder (N32.89) Active confirmed Vital Signs Blood pressure diastolic 60 mm Hg 12/01/2024 Height 68 in 12/01/2024 Blood pressure systolic 122 mm Hg 12/01/2024 Weight 182 lbs 12/01/2024 BMI 27.67 kg/m2 12/01/2024 Encounters Encounter Location Date Provider Diagnosis Red Sexton MD [address] [place] [id number] 03/29/2024 Red Sexton Blood tests for rout ine general physical examination Z00.00 ; Essential hypertension I10 ; Prediabetes R73.09 and Microcytic anemia D50.9 Red Sexton MD [address] [place] [id number] 04/04/2024 Red Sexton Essential hypertensi on I10 ; Encounter for general adult medical examination without abnormal findings Z00.00 ; Prediabetes R73.09 ; Arthritis of left foot M19.072 ; Gastroesophageal reflux disease without esophagitis K21.9 ; Irritable bowel syndrome with constipation K58.1 and Depression screening Z13.31 Red Sexton MD [address] [place] [id number] 10/03/2024 Red Sexton Prediabetes R73.09 ; Essential hypertension I10 and Irritable bladder N32.89 Red Sexton MD [address] [place] [address] [id number] 12/01/2024 Red Sexton Essential hypertensi on I10 and Eustachian tube dysfunction H69.80 Red Sexton MD [address] [place] [address] [id number] 03/03/2024 Red Sexton MD [address] [place] [address] [id number] 03/31/2024 Red Sexton MD [address] [place] [address] [id number] 05/26/2024 Red Sexton MD [address] [place] [address] [id number] 07/25/2024 Red Sexton MD [address] [place] [address] [id number] 08/09/2024 Red Sexton MD [address] [place] [address] [id number] 09/22/2024 Red Sexton MD [address] [place] [address] [id number] 11/18/2024 Red Sexton MD [address] [place] [address] [id number] 01/16/2025 Red Sexton Assessments Encounter Date Diagnosis (ICD Code) Assessment Notes Treatment Notes Treatment Clinical Notes Section Notes 03/29/2024 Blood tests for routine general physical examination (ICD-10 - Z00.00) 03/29/2024 Essential hypertension (ICD-10 - I10) 04/04/2024 Essential hypertension (ICD-10 - I10) doing well on meds, will continue current regiment 04/04/2024 Encounter for general adult medical examination without abnormal findings (ICD-10 - Z00.00) Labs reviewed and discussed with patient 10/03/2024 Prediabetes (ICD-10 - R73.09) stable, no need for medication at this time, will continue to montor 10/03/2024 Essential hypertension (ICD-10 - I10) stable, will continue current regiment 12/01/2024 Essential hypertension (ICD-10 - I10) stable, will continue current regiment 12/01/2024 Eustachian tube dysfunction (ICD-10 - H69.80) patient verbalized understanding of medication and directions for use, will contiue to monitor 03/29/2024 Prediabetes (ICD-10 - R73.09) 04/04/2024 Prediabetes (ICD-10 - R73.09) good sugar, no need for medication at this time 10/03/2024 Irritable bladder (ICD-10 - N32.89) stable, will continue current regiment 03/29/2024 Microcytic anemia (ICD-10 - D50.9) 04/04/2024 Arthritis of left foot (ICD-10 - M19.072) can't take ibuprofen, will start tylenol arthritis 04/04/2024 Gastroesophageal reflux disease without esophagitis (ICD-10 - K21.9) stable, will continue current regiment 04/04/2024 Irritable bowel syndrome with constipation (ICD-10 - K58.1) ding well, will cntinue current regiment 04/04/2024 Depression screening (ICD-10 - Z13.31) negative screen Plan Of Treatment Pending Test Test Name Order Date Electrocardiogram (EKG) 12/27/2015 Electrocardiogram (EKG) 01/15/2017 Electrocardiogram (EKG) 02/10/2019 CULTURE, URINE, ROUTINE 08/26/2012 Next Appt Details Provider Name:Red paul, 03/30/2025 08:00:00 AM, [address] [place] [address], [address], [id number], Provider Name:Red paul, 04/06/2025 01:00:00 PM, [address] [place] [address], [address] [facility], [place], [place], [id number], Insurance Providers Payer Name Payer Address Payer Phone Subscriber Number Group Number Insured Name Patient Relationship to Insured Coverage Start Date Coverage End Date [facility] [address] [place], [place] [id number] Nadege Ramos Self - patient is the insured Medical (General) History Medical History History ICD Code colonoscopy 12/2010 due in 10 years: col onoscopy 08/19/21, no more Surgical History Surgery Date(Month/Year) Lt Total Knee Arthroplasty by Dr. Ignacio lopez 05/2016 Rt total knee arthroplasty by Dr. Ignacio lopez 06/2017
--- OUTSIDE RECORDS SUMMARY | 2025-02-17 19:10 | XMS_ITS | Patient Health Record ---
Author Organization [facility] Address [address] [facility] [place] [address] Care Team Providers Care Garnetter Name Role Phone Red Sexton MD Primary Care Provider Mike Barros Unavailable [phone] Allergies Allergen (clinical drug ingredient) Drug/Non Drug Allergy documented on EMR Reaction Allergy Type Onset Date Status erythromycin Erythromycin Thrush, Rash Drug Allergy Active Penicillin swelling Drug Allergy Active Reason For Referral No Information Medications Medication SIG (Take, Route, Frequency, Duration) Notes Start Date End Date Status Estradiol inserts Not-Taking Diovan 80 MG 1 tablet Orally Once a day Active Cleocin 300 MG 1 capsule Orally nish ry 8 hrs; Duration: 10 day(s) 02/11/2019 Not-Yuriy ing Minoxidil Active Hyoscyamine prn Not-Taki ng oxyBUTYnin 5mg Active Omeprazole 20 MG as directed Orally O nce a day Active traMADol HCl 50 MG as directed Orally O nce a day Active Potassium Active Yuvafem 10 MCG 1 tablet Vaginal Two times a Week Active Vitamin B-12 Active Motrin Not-Taking Zinc Active Immunizations Vaccine Route Administration Date Status Comme nts Influenza Unknown 12/08/2023 Administered COVID-19 Moderna Vaccine Unknown 01/01/2021 Administered 1st 04/10/2020 2nd 05/08/2020 Social History Tobacco Use: Social History Observation Description Date Details (start date - stop date) Never Smoker NA - NA Tobacco use other than smoking: Question Answer Notes Are you an other tobacco user? No Tobacco Control (Standard) Question Answer Notes Tobacco use: Nonsmoker Additional Findings: Tobacco non-user Current no nsmoker AUDIT-C (Standard) Question Answer Notes Did you have a drink containing alcohol in the p ast year? 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) Active confirmed Vital Signs Blood pressure diastolic 70 mm Hg 12/13/2024 Height 5 ft 8 in in 12/13/2024 Blood pressure systolic 125 mm Hg 12/13/2024 Weight 180 lbs 12/13/2024 BMI 27.37 kg/m2 12/13/2024 Procedures Procedure Date Ordered Date Performed Result Body Sit e 54572-LVCYGCM NAIL, 6 OR MORE 05/10/2024 N/A 09144-EMFR SKIN LESIONS, 2 TO 4 05/10/2024 N/A 44004-WMAZEQO NAIL, 6 OR MORE 08/12/2024 N/A 99026-RZNH SKIN LESIONS, 2 TO 4 08/12/2024 N/A 61073-QGDULQV NAIL, 6 OR MORE 12/13/2024 N/A 97513-JRJT SKIN LESIONS, 2 TO 4 12/13/2024 N/A Encounters Encounter Location Date Provider Diagnosis [address] [address] 05/10/2024 Mike Zepeda Atherosclerosis of makah artery of both lower extremities, with unspecified presence of clinical manifestation I70.203 ; Onychomycosis B35.1 ; Pain of toe of right foot M79.674 and Pain of toe of left foot M79.[address] [address] 08/12/2024 Mike Duane Atherosclerosis of makah artery of both lower extremities, with unspecified presence of clinical manifestation I70.203 ; Onychomycosis B35.1 ; Pain of toe of right foot M79.674 and Pain of toe of left foot M79.[address] [address] 12/13/2024 Mike Zepeda Atherosclerosis of makah artery of both lower extremities, with unspecified presence of clinical manifestation I70.203 ; Onychomycosis B35.1 ; Pain of toe of right foot M79.674 and Pain of toe of left foot M79.675 Assessments Encounter Date Diagnosis (ICD Code) Assessment Notes Treatment Notes Treatment Clinical Notes Section Notes 05/10/2024 Onychomycosis (ICD-10 - B35.1) 05/10/2024 Atherosclerosis of makah artery of both lower extremities, with unspecified presence of clinical manifestation (ICD-10 - I70.203) 08/12/2024 Onychomycosis (ICD-10 - B35.1) 08/12/2024 Atherosclerosis of makah artery of both lower extremities, with unspecified presence of clinical manifestation (ICD-10 - I70.203) 12/13/2024 Onychomycosis (ICD-10 - B35.1) 12/13/2024 Atherosclerosis of makah artery of both lower extremities, with unspecified presence of clinical manifestation (ICD-10 - I70.203) 12/13/2024 Pain of toe of right foot (ICD-10 - M79.674) 05/10/2024 Pain of toe of right foot (ICD-10 - M79.674) 08/12/2024 Pain of toe of right foot (ICD-10 - M79.674) 08/12/2024 Pain of toe of left foot (ICD-10 - M79.675) 05/10/2024 Pain of toe of left foot (ICD-10 - M79.675) 12/13/2024 Pain of toe of left foot (ICD-10 - M79.675) Plan Of Treatment Pending Test Test Name Order Date X ray : Foot, right 3V 08/20/2021 91292-BYIGDAB NAIL, 6 OR MORE 05/14/2023 33695-DJWZJOK NAIL, 6 OR MORE 11/25/2022 27207-DAZCXHL NAIL, 6 OR MORE 05/10/2024 48539-XHTIVOV NAIL, 6 OR MORE 08/12/2024 40522-XXILOCO NAIL, 6 OR MORE 12/13/2024 43319-Qhvyxnxn Plate 05/28/2021 92722- Debride <25 sq cm 05/28/2021 54460- Debride <25 sq cm 08/20/2021 61035- Debride <25 sq cm 09/04/2021 47918 I&D ABSCESS- SIMPLE,SINGLE 019 34689, J0702- INJECT TENDON ORIGIN/INSER T 12/23/2016 51263-ZCKQ SKIN LESIONS, 2 TO 4 11/20/19 22 72991-JBCL SKIN LESIONS, 2 TO 4 02/05/20 07152-HZFY SKIN LESIONS, 2 TO 4 04/22/19 23 61716-FBBO SKIN LESIONS, 2 TO 4 07/23/19 23 24568-JCTD SKIN LESIONS, 2 TO 4 05/11/19 25 64650-HSKU SKIN LESIONS, 2 TO 4 11/26/19 23 47325-TBIY SKIN LESIONS, 2 TO 4 05/14/19 24 61909-HAYD SKIN LESIONS, 2 TO 4 09/15/19 24 17269-WMPV SKIN LESIONS, 2 TO 4 01/12/20 24 31541-ALPZ SKIN LESIONS, 2 TO 4 12/14/19 25 61098-VYGB SKIN LESIONS, 2 TO 4 08/13/19 Next Appt Details Provider Name:Mike Lelo Zepeda , 04/11/2025 02:45:00 PM, [address] [facility], [place], [address], Insurance Providers Payer Name Payer Address Payer Phone Subscriber Number Group Number Insured Name Patient Relationship to Insured Coverage Start Date Coverage End Date [facility] 65 Medicare [address] [place] [address] [phone] [id number] Nadege Ramos Self - patient is the insured Medical (General) History Medical History History ICD Code Back,Hip,and Knee pain High blood pressure Reflux ( GERD) Sciatica Measles Chicken pox Joint implants/screws covid-19 Surgical History Surgery Date(Month/Year) Left knee replacement 05/13/16 right knee replacement 06/2017,04/23/21 cataract-lens implants 06/2018 colonoscopy 08/19/21 Hospitalization History Reason Date(Month/Year) Two weeks Phyical Theraphy 05/2016
--- OUTSIDE RECORDS SUMMARY | 2025-02-17 19:12 | XMS_ITS | Patient Health Record ---
Author Organization [facility] Address [address] [place] [address] Care Team Providers Care Iron Installer Name Role Phone Red Sexton MD Primary Care Provider Kristian Lynch [phone] Allergies Allergen (clinical drug ingredient) Drug/Non Drug Allergy documented on EMR Reaction Allergy Type Onset Date Status azithromycin Azithromycin Unknown Drug Allergy A ctive Penicillin Unknown Drug Allergy Active Reason For Referral No Information Medications Medication SIG (Take, Route, Frequency, Duration) Notes Start Date End Date Status Omeprazole 20 MG Capsule Delayed Release Oral GERD Acti ve Iron 325 (65 Fe) MG Tablet 1 tablet Orally Once a day Active traMADol HCl 50 MG Tablet Oral; Duration: 30 Active levoFLOXacin 250 MG Tablet Oral; Duration: 5 Not-Taking /PRN Celecoxib 100 MG Capsule Oral; Duration: 30 Not-Takin g/PRN LORazepam 0.5 MG Tablet Oral; Duration: 5 Active Valsartan-hydroCHLOROth iazide 80-12.5 MG Tablet Oral; Duration: 90 Active Ibuprofen 800 MG Tablet Oral; Duration: 90 Active Yuvafem 10 MCG Tablet Vaginal; Duration: 90 Active Diovan HCT 80-12.5 MG Tablet 1 tablet Orally Once a day; Duration: 30 day(s) 07/17/2021 Active Fluconazole 150 MG Tablet Oral; Duration: 5 Not-Taking /PRN oxyBUTYnin Chloride 5 MG Tablet Oral; Duration: 90 Active oxyCODONE HCl 10 MG Tablet Oral; Duration: 7 Active Immunizations Vaccine Route Administration Date Status Comme nts Influenza Unknown 12/26/2020 Administered Influenza Unknown 12/11/2021 Administered Social History Tobacco Use: Social History Observation Description Date Details (start date - stop date) Never Smoker NA - NA Social History Drugs/Alcohol: Social Info Question Answer Notes Alcohol Screen Did you have a drink containing alcohol in the past year? No Points 0 Interpretation Negative Tobacco Use: Social Info Question Answer Notes Tobacco Use/Smoking Patient is a nonsmoker Additional Details Category Social Info Options Details Miscellaneous: Marital status: Occupation: retired Section Notes: Nonsmoker; no sig alcohol Nonsmoker; no sig alcohol Problems Problem Type SNOMED Code ICD Code Onset Dates Problem Status W/U Status Risk Notes Problem Iron deficiency anemia (75672223) Iron deficiency anemia (D50.9) Active confirmed Problem Benign neoplasm of stomach (40920987) Gastric polyps (K31.7) Active confirmed Problem Gastroesophageal reflux disease (494218797) GERD (gastroesophageal reflux disease) (K21.9) Active confirmed Problem Chronic constipation (890517243) Chronic constipation (K59.09) Active confirmed Problem Diverticulosis of colon (582356095) Diverticulosis of colon (K57.30) Active confirmed Problem Abnormal feces (926894698) Positive colorectal cancer screening using Cologuard test (R19.5) Active confirmed Plan Of Treatment Pending Test Test Name Order Date IRON + IBC (FE) 07/17/2021 FERRITIN 12/18/2021 CBC w DIFF 12/18/2021 CBC w DIFF 07/17/2021 Complete Blood Count Auto Diff IRON PROFILE 12/18/2021 Ferritin 07/17/2021 Vitamin B12 and Folate 07/17/2021 Future Test Test Name Order Date UPPER GI ENDOSCOPY 07/17/2021 COLONOSCOPY 07/17/2021 Insurance Providers Payer Name Payer Address Payer Phone Subscriber Number Group Number Insured Name Patient Relationship to Insured Coverage Start Date Coverage End Date [facility] [address] [place] [address] [id number] MARIA DEL CARMEN GILMORE Self - patient is the insured Medical (General) History Medical History History ICD Code HTN Paralyzed vocal cord Negative colonoscopy in 03/[address] Andrew Iron deficiency anemia Denies ME,DM,CVA,Lung disease,renal dise ase GERD-she thinks she had a ne gative upper endoscopy in the past with Dr. Andrew as well Arthritis Colonoscopy 08/2021--one small tubular ad enoma removed; no angiodysplasias EGD 08/2021-hiatal hernia and mild gastritis; duodenal biopsies negative for celiac disease. There was no Silveira's esophagus Surgical History Surgery Date(Month/Year) Partial right knee replacement 04/[address] [facility] [address] Cramer Lap band--deflated-Dr. Wolfe Bilateral knee replacements with Dr. Cezar wright-2016,2017 [facility]
--- OUTSIDE RECORDS SUMMARY | 2025-02-17 19:12 | XMS_ITS | Patient Health Record ---
Author Organization [facility] Address [address] [place] [address] Care Team Providers Care Charger Tester Name Role Phone Red Sexton MD Primary Care Provider Jana Griffin Unavailable [phone] Allergies Allergen (clinical drug ingredient) Drug/Non Drug Allergy documented on EMR Reaction Allergy Type Onset Date Status Penicillin Internal Swelling Drug Allergy Active Reason For Referral No Information Medications Medication SIG (Take, Route, Frequency, Duration) Notes Start Date End Date Status Yuvafem 10 MCG 1 tablet Vaginal Three x a week; Duration: 84 days Rx was electronically sent on 12/29/23 for 90 days with 4 refill. Last name under Rachel-aJcob Active Hyoscyamine Sulfate 0.125 MG/5ML 5 ml before meals as needed Orally PRN Active Clotrimazole-Betame thasone 1-0.05 % 1 application to affected area Externally Twice a day; Duration: 14 days 11/13/2022 Active Diovan HCT 80-12.5 1 ORAL daily; Duration: -3 07/15/2011 Active Omeprazole 20MG 1 ORAL daily; Duration: -3 07/15/2011 Active traMADol HCl 50 MG 1 tablet as needed Orally Active Ibuprofen 800 MG 1 tablet as needed Orally Active oxyBUTYnin Chloride ER 5 MG 1 tablet Orally Once a day Active Social History Tobacco Use: Social History Observation Description Date Details (start date - stop date) Former Smoker NA - NA AUDIT-C (Standard) Question Answer Notes Did you have a drink contain ing alcohol in the past year? Yes How often did you have six o r more drinks on one occasion in the past year? Never (0 point) How many drinks did you have on a typical day when you were drinking in the past year? 1 or 2 drinks (0 point) How often did you have a dri nk containing alcohol in the past year? Monthly or less (1 point) Points 1 Interpretation Negative Tobacco Control (Standard) Question Answer Notes Tobacco use: Former smoker How long has it been since you last smoked? Grea ter than 10 years Section Notes: Problems Problem Type SNOMED Code ICD Code Onset Dates Problem Status W/U Status Risk Notes Problem Postmenopausal atrophic vaginitis (12232915) Postmenopausal atrophic vaginitis (N95.2) Active confirmed Problem Benign essential hypertension (4588440) Essential hypertension, benign (401.1) Active confirmed Major Problem Esophageal reflux (600605784) Esophageal reflux (530.81) Active confirmed Major Problem Menopausal symptom (18576684) Symptomatic menopausal or female climacteric states (627.2) Active confirmed Major Problem Gynecological examination normal (366888747851719) Routine gynecological examination (V72.31) Active confirmed Major Problem Screening for malignant neoplasm of colon (665302704) Special screening for malignant neoplasms, colon (V76.51) Active confirmed Major Encounters Encounter Location Date Provider Diagnosis [address] [place] [address] 03/22/2024 Jana Mtz Plan Of Treatment Pending Test Test Name Order Date MAMMOGRAM, SCREENING 11/03/2019 MAMMOGRAM, SCREENING 11/07/2021 MAMMOGRAM, SCREENING 11/19/2023 Urinalysis 10/26/2017 COMPLETE URINALYSIS 10/26/2017 URINE CULTURE 10/26/2017 BONE DENSITY 10/27/2018 MM Digital Mammo Screening 11/03/2019 MM Digital Mammo Screening 11/13/2022 MM Digital Mammo Screening 11/19/2023 MM Digital Mammo Screening 11/05/2020 MM Digital Mammo Screening 11/07/2021 Insurance Providers Payer Name Payer Address Payer Phone Subscriber Number Group Number Insured Name Patient Relationship to Insured Coverage Start Date Coverage End Date [employer] MED[employer] PPO [address] [place] [address] [phone] [id number] MARIA DEL CARMEN GILMORE Self - patient is the insured Medical (General) History Medical History History ICD Code Gastro-esophageal reflux disease without esophagitis K21.9 Essential (primary) hypertension I10 Menopausal and female climacteric states N95.1 Postmenopausal atrophic vaginitis N95.2 Personal history of urinary (tract) infe ctions Z87.440 Irritable bowel syndrome with constipati on K58.1 Abscess of vulva N76.4 Surgical History Surgery Date(Month/Year) Colonoscopy Lab Band Surgery [place] Teeth Lt Knee Replacement 2016 Rt Knee Replacement 06/2017 Rt Knee Replacement Repair 04/23/2021 Hospitalization History Reason Date(Month/Year) See Surgical Hx 4 Vaginal Deliveries
[2025-02-17 20:48] LABS: Appearance Urine Clear; Glucose Urine UA Negative (Negative); PH 7.5 (5.0-9.0); Specific Gravity - Urine 1.010 (1.005-1.025); UMIC TRIGGER UACC YES
[2025-02-17 21:20] VITALS: BP 127/55; PULSE 77; RESP 20; TEMP 36.9; O2SAT 95
[2025-02-17 21:54] VITALS: BP 127/55; PULSE 77; RESP 20; TEMP 36.9; O2SAT 95
== END 2025-02-17 21:55 | disposition home or self-care (01) ==
PROVIDERS: Physician Assistant; Emergency Provider Emergency Medicine; PCP Internal Medicine
DX: K59.00 Constipation, unspecified (principal)
CPT/HCPCS: 36415; 74176; 80053; 81001; 83605; 83735; 85025; 87040; 96360; 99284

== ENCOUNTER → 2025-02-17 13:12 | Outpatient (BNV) | payer MEDICARE, SELFPAY | PROVIDERS: Emergency Provider Emergency Medicine; PCP Internal Medicine; Visit Provider Radiology Diagnostic Radiology | DX: K57.90 Diverticulosis of intestine, part unspecified, without perforation or abscess without bleeding (principal); M51.369 Other intervertebral disc degeneration, lumbar region without mention of lumbar back pain or lower extremity pain; M47.816 Spondylosis without myelopathy or radiculopathy, lumbar region | CPT/HCPCS: 74176 ==

== ENCOUNTER 2025-02-21 13:18 | Emergency (ER) | payer MEDICARE, SELFPAY ==
--- OUTSIDE RECORDS SUMMARY | 2024-04-04 05:30 | XMS_ITS ---
Author Organization Red Sexton MD Address [address] [place], [place] [id number] Care Team Providers Care Commercial Specialist Name Role Phone Red Sexton Primary Care Provider Allergies Allergen (clinical drug ingredient) Drug/Non Drug Allergy documented on EMR Reaction Allergy Type Onset Date Status azithromycin Zithromax Unknown Drug Allergy Acti ve penicillin V Penicillin V Potassium swelling Drug Allergy Active sulfamethoxazole / trimethoprim Bactrim DS Unknown Drug Allergy Active REASON FOR VISIT annual visit Medications Medication SIG (Take, Route, Frequency, Duration) Notes Start Date End Date Status Tylenol 8 Hour Arthritis Pain 650 MG 2 tablets as needed Orally twice a day for 30 days 04/04/2024 Active Yuvafem 10 MCG 1 tablet Vaginal QOD Active Fioricet 50-300-40 MG 1 capsule as neede d Orally every 4 hrs Not-Taking Senna Lax 8.6 MG 2 tablets at bedtime as needed Orally Once a day Not-Taking Betamethasone Dipropionate 0.05 % 1 application to affected area Externally Once a day for 30 days 10/14/2012 Not-Taking Hyoscyamine Sulfate 0.125 MG TAKE 1 TABLET UNDER THE TONGUE EVERY 4 HOURS EVERY 12 HRS NEEDED ORALLY 30 DAYS Orally Three times a day Not-Taking LORazepam 0.5 MG 1 tablet as needed Orally Twice a day for 5 days 05/24/2021 Not-Taking Aspirin 325 MG 1 tablet Orally Once a day Not-Taking Omeprazole 20 MG TAKE 1 CAPSULE BY [facility] EVERY DAY Orally Once a day Active Hyoscyamine Sulfate ER 0.375 MG 1 tablet Orally every 12 hrs 06/11/2023 Active Valsartan-hydroCHLOROthia zide 80-12.5 MG TAKE 1 TABLET BY MOUTH EVERY DAY Active oxyBUTYnin Chloride 5 MG TAKE 1 TABLET ( 5MG) BY MOUTH ONCE A DAY FOR 90 DAYS. Orally Once a day for 90 days Active traMADol HCl 50 MG 1 tablet as needed Orally can take every 12 hours for 30 days 03/31/2024 Active Potassium Chloride ER 8 MEQ 2 capsules with food Orally Twice a day for 90 days Active Social History Tobacco Use: Social History Observation Description Date Details (start date - stop date) Former Smoker NA - NA Tobacco Use/Smoking Question Answer Notes Patient is a former smoker How long has it been since y ou last smoked? > 10 years Additional Findings: Tobacco Non-User Fo rmer smoker, currently using no form of tobacco Alcohol Screen Question Answer Notes Did you have a drink containing alcohol in the p ast year? No Points 0 Interpretation Negative Vital Signs Blood pressure systolic 138 mm Hg 04/04/19 25 Blood pressure diastolic 70 mm Hg 025 Height 68 in 04/04/2024 Weight 180 lbs 04/04/2024 BMI 27.37 kg/m2 04/04/2024 weight is down 1 pound since 10-01-23 Encounters Encounter Location Date Provider Diagnosis Red Sexton MD [address] [place] [address] [place] [phone] 04/04/2024 Red Sexton Essential hypertensi on I10 ; Encounter for general adult medical examination without abnormal findings Z00.00 ; Prediabetes R73.09 ; Arthritis of left foot M19.072 ; Gastroesophageal reflux disease without esophagitis K21.9 ; Irritable bowel syndrome with constipation K58.1 and Depression screening Z13.31 Assessments Encounter Date Diagnosis (ICD Code) Assessment Notes Treatment Notes Treatment Clinical Notes Section Notes 04/04/2024 Essential hypertension (ICD-10 - I10) doing well on meds, will continue current regiment 04/04/2024 Encounter for general adult medical examination without abnormal findings (ICD-10 - Z00.00) Labs reviewed and discussed with patient 04/04/2024 Prediabetes (ICD-10 - R73.09) good sugar, no need for medication at this time 04/04/2024 Arthritis of left foot (ICD-10 - M19.072) can't take ibuprofen, will start tylenol arthritis 04/04/2024 Gastroesophageal reflux disease without esophagitis (ICD-10 - K21.9) stable, will continue current regiment 04/04/2024 Irritable bowel syndrome with constipation (ICD-10 - K58.1) ding well, will cntinue current regiment 04/04/2024 Depression screening (ICD-10 - Z13.31) negative screen Plan Of Treatment Medication Medication Name Sig Start Date Stop Date Notes Tylenol 8 Hour Arthritis Pauline n 650 MG 2 tablets as needed Orally twice a day for 30 days 04/04/2024 Omeprazole 20 MG TAKE 1 CAPSULE BY [facility] EVERY DAY Orally Once a day Hyoscyamine Sulfate ER 0.375 MG 1 tablet Orally every 12 hrs 06/11/2023 Valsartan-hydroCHLOROthiazid e 80-12.5 MG TAKE 1 TABLET BY MOUTH EVERY DAY Treatment Notes Assessment Notes Essential hypertension doing well on med s, will continue current regiment Encounter for general adult medical examination without abnormal findings Labs reviewed and discussed with patient Prediabetes good sugar, no need for medication at this time Arthritis of left foot can't take ibupro fen, will start tylenol arthritis Gastroesophageal reflux dise ase without esophagitis stable, will continue current regiment Irritable bowel syndrome with constipati on ding well, will cntinue current regiment Depression screening negative screen Next Appt Details Follow Up: 6 Months, Reason: Provider Name:Red paul, 03/14/2025 07:30:00 AM, [address] [place] [address], [address], [place], [place], [phone], Provider Name:Red paul, 03/30/2025 08:00:00 AM, [address] [place] [address], [address], [place], [place], [phone], Provider Name:Red paul, 04/06/2025 01:00:00 PM, [address] [place] [address], [address], [place], [place], [phone], Progress Notes * Nadege GILMORE MDOB: [birth year] (84 yo F)Acc No.[id number]:04/04/2024 Progress Notes Patient: Nadege HURLEY Provider: Sylvester Sexton MD :1940 A ge:84 Y S ex:Female Date:04/04/2024 Address:[address] [place], [place] [id number] Subjective: * Chief Complaints: * A nnual visit * HPI: D epression Screening: PHQ-9 L ittle interest or pleasure in doing things N ot at all, F eeling down, depressed, or hopeless N ot at all, T rouble falling or staying asleep, or sleeping too much N ot at all, F eeling tired or having little energy N ot at all, P oor appetite or overeating N ot at all, F eeling bad about yourself or that you are a failure, or have let yourself or your family down N ot at all, T rouble concentrating on things, such as reading the newspaper or watching television N ot at all, M oving or speaking so slowly that other people could have noticed; or the opposite, being so fidgety or restless that you have been moving around a lot more than usual N ot at all, T houghts that you would be better off or of hurting yourself in some way N ot at all, T otal Score 0 . I nterpretation and Intervention D epression Screening Findings N egative, F ollow-Up for Depression : review of PHQ-9 found negative result, no follow-up needed. C ommunication Needs: Communication Needs D oes the patient have a hearing impairment N o, D oes the patient have a vision impairment? Y es, I f yes, what is the vision impairment? G lasses, D oes the patient have a cognition impairment? N o. F all Risk: History H ave you had any falls with injury in the past year? N o, H ave you had two or more falls in the past year? N o. S GEMMA Questions: SDOH Questions I n the past year have you been worried about losing housing? N o, I n the past year have you or any family members you live with been unable to get any of the following when it was really needed? Check all that apply: N one. * ROS: G eneral/Constitutional: Change in appetite d enies. C hills d enies. F ever d enies. O phthalmologic: Blurred vision d enies. D ischarge d enies. P ain d enies. E NT: Decreased hearing d enies. S ore throat d enies.?Swollen glands d enies. E ndocrine: Cold intolerance d enies. E xcessive thirst d enies. H eat intolerance d enies. W eight loss d enies. R espiratory: Cough d enies. S hortness of breath at rest d enies. S hortness of breath with exertion d enies. W heezing d enies. C ardiovascular: Chest pain at rest d enies. C hest pain with exertion?denies. I rregular heartbeat d enies. S hortness of breath d enies. ? G astrointestinal: Abdominal pain d enies. C hange in bowel habits d enies. D iarrhea d enies. N ausea d enies. R ectal bleeding d enies. V omiting d enies . G enitourinary: Blood in urine d enies. D ifficulty urinating d enies. F requent urination d enies. U rinary incontinence D enies. M usculoskeletal: Painful joints d enies. W eakness d enies. ? S kin: Dry skin d enies. I tching d enies. D enies?Mole(s), changes in moles, new moles or any lesions of concern. D enies P hotosensitivity. R michael d enies. N eurologic: Dizziness d enies. F ainting d enies. H eadache?denies. * Medical History: * Surgical History: * Hospitalization/Major Diagno stic Procedure: * Family History: F ather: 61 yrs. M other: 74 yrs. 3 son(s) , 1 daughter(s) . . Father- Atherosclerosis Mother-ME, No pertinent family medical history, Denies mental health/substance abuse family history, Denies mental health/substance abuse family history son and daughter alcohol issues. * Social History: T obacco Use: T obacco Use/Smoking P atient is a f ormer smoker, H ow long has it been since you last smoked? > 10 years, A dditional Findings: Tobacco Non-User F ormer smoker, currently using no form of tobacco. D rugs/Alcohol: A lcohol Screen D id you have a drink containing alcohol in the past year? N o, P oints 0 , I nterpretation N egative. M iscellaneous: C affeine: yes, frequency:, more than 4 cups per day. Exercise: yes, 5 lb weights treadmill 20 minutes QD. Marital status: . Natural support system: no. Occupation: retired. Pets: 2 dogs 2 birds and fish. Travel outside of the [place]: no, none. * Medications: T akingHyoscyamine Sulfate ER 0.375 MG Tablet Extended Release 12 Hour 1 tablet Orally every 12 hrs Yuvafem 10 MCG Tablet 1 tablet Vaginal QOD Potassium Chloride ER 8 MEQ Tablet Extended Release 2 capsules with food Orally Twice a day Valsartan-hydroCHLOROthiazide 80-12.5 MG Tablet TAKE 1 TABLET BY MOUTH EVERY DAY oxyBUTYnin Chloride 5 MG Tablet TAKE 1 TABLET (5MG) BY MOUTH ONCE A DAY FOR 90 DAYS. Orally Once a day Omeprazole 20 MG Capsule Delayed Release TAKE 1 CAPSULE BY MOUTH EVERY DAY Orally Once a day traMADol HCl 50 MG Tablet 1 tablet as needed Orally can take every 12 hours Taking Hyoscyamine Sulfate ER 0.375 MG Tablet Extended Release 12 Hour 1 tablet Orally every 12 hrs Taking Yuvafem 10 MCG Tablet 1 tablet Vaginal QOD Taking Potassium Chloride ER 8 MEQ Tablet Extended Release 2 capsules with food Orally Twice a day Taking Valsartan-hydroCHLOROthiazide 80-12.5 MG Tablet TAKE 1 TABLET BY MOUTH EVERY DAY Taking oxyBUTYnin Chloride 5 MG Tablet TAKE 1 TABLET (5MG) BY MOUTH ONCE A DAY FOR 90 DAYS. Orally Once a day Taking Omeprazole 20 MG Capsule Delayed Release TAKE 1 CAPSULE BY MOUTH EVERY DAY Orally Once a day Taking traMADol HCl 50 MG Tablet 1 tablet as needed Orally can take every 12 hours Not-Taking/PRNLORazepam 0.5 MG Tablet 1 tablet as needed Orally Twice a day Hyoscyamine Sulfate 0.125 MG Tablet Sublingual TAKE 1 TABLET UNDER THE TONGUE EVERY 4 HOURS EVERY 12 HRS NEEDED ORALLY 30 DAYS Orally Three times a day Aspirin 325 MG Tablet Delayed Release 1 tablet Orally Once a day Senna Lax 8.6 MG Tablet 2 tablets at bedtime as needed Orally Once a day Fioricet 50-300-40 MG Capsule 1 capsule as needed Orally every 4 hrs Betamethasone Dipropionate 0.05 % Cream 1 application to affected area Externally Once a day Not-Taking/PRN LORazepam 0.5 MG Tablet 1 tablet as needed Orally Twice a day Not-Taking/PRN Hyoscyamine Sulfate 0.125 MG Tablet Sublingual TAKE 1 TABLET UNDER THE TONGUE EVERY 4 HOURS EVERY 12 HRS NEEDED ORALLY 30 DAYS Orally Three times a day Not-Taking/PRN Aspirin 325 MG Tablet Delayed Release 1 tablet Orally Once a day Not-Taking/PRN Senna Lax 8.6 MG Tablet 2 tablets at bedtime as needed Orally Once a day Not-Taking/PRN Fioricet 50-300-40 MG Capsule 1 capsule as needed Orally every 4 hrs Not-Taking/PRN Betamethasone Dipropionate 0.05 % Cream 1 application to affected area Externally Once a day DiscontinuedIbuprofen 800 MG Tablet TAKE 1 TABLET BY MOUTH TWICE A DAY FOR 90 DAYS Discontinued Ibuprofen 800 MG Tablet TAKE 1 TABLET BY MOUTH TWICE A DAY FOR 90 DAYS * Allergies: P enicillin V Potassium: swellingBactrim DSZithromaxyes[Allergies Verified] Objective: * Vitals: H t: 68, Wt: 180, BMI:27.37, BP:138/70, Wt-k.65. weight is down 1 pound since 10-01-23. * P ast Orders: L ab:Comprehensive [place]. Panel Fast (Order Date - 03/29/2024) (Collection Date & Time - 03/29/2024 08:30 AM) Value Reference Range Sodium 132 L 135-145 - mmol/L Bilirubin Total 0.4 0.0-1.0 - mg/dL Aspartate Amino Transferase 20 5-31 - U/L Alanine Aminotransferase 8 0-31 - U/L Total Protein 7.3 6.5-8.0 - g/dL Albumin Level 4.2 3.5-5.0 - g/dL Alkaline Phosphatase 88 39-117 - U/L Potassium 4.0 3.3-5.1 - mmol/L Chloride 98 96-108 - mmol/L Carbon Dioxide 26 22-29 - mmol/L Anion Gap 12 12-20 - Blood Urea Nitrogen 21 H 9-16 - mg/dL Creatinine 1.02 0.5-1.4 - mg/dL Estimated Glomerular Filt Rate 52 - Glucose Fasting 95 60-99 - mg/dL Calcium 9.4 8.4-10.2 - mg/dL L ab:Lipid Panel (Order Date 03/29/2024) (Collection Date & Time 03/29/2024 08:30 AM) Value Reference Range Triglycerides 105 <150 - mg/dL Cholesterol 221 H <200 - mg/dL LDL Cholesterol Calculated 137 H <100 - mg/dL HDL Cholesterol 63 >40 - mg/dL L ab:Microalbumin, Random (Order Date 03/29/2024) (Collection Date & Time - 03/29/2024 08:30 AM) Value Reference Range Creatinine Urine 43.63 - mg/dL Microalbumin Urine < 5.0 - mg/L Microalbum Creatinine Ratio Ur TNP <30 - ug/ mg cr L ab:Hemoglobin A1c (Order Date 03/29/2024) (Collection Date & Time - 03/29/2024 08:30 AM) Value Reference Range Hemoglobin A1c % 5.0 <6.0 - % Estimated Average Glucose 97 - mg/dL L ab:Complete Blood Count Auto Diff (Order Date 03/29/2024) (Collection Date & Time - 03/29/2024 08:30 AM) Value Reference Range White Blood Count 5.0 4.8-10.8 - X10*3/uL Red Blood Count 4.29 4.20-5.50 - X10*6/uL Hemoglobin 12.2 12.0-16.0 - g/dl Hematocrit 37.5 37.0-47.0 - % Mean Corpuscular Volume 87.4 80.0-98.0 - fL Mean Corpuscular Hemoglobin 28.4 27.0-33.0 - pg Mean Corpuscular HGB Conc 32.5 31.0-35.0 - g/ dl Red Cell Distribution Width 17.2 H 11.0-16.0 - % Platelet Count 307 160-400 - X10*3/uL Mean Platelet Volume 9.4 9.4-12.3 - fL Neutrophils Percent Auto 55.3 45-73 - % Imm Gran Pct Auto 0.2 0.0-0.4 - % Lymphocytes Percent Auto 29.9 20-40 - % Monocytes Percent Auto 11.0 2-11 - % Eosinophils Percent Auto 2.4 0-4 - % Basophils Percent Auto 1.2 0-2 - % NRBC Pct Auto 0.0 0.0-0.2 - /100WBC Neutrophils Absolute Auto 2.8 2.0-8.3 - x10* 3/uL Imm Gran Abs Auto 0.01 0.00-0.03 - X10*3/uL Lymphocytes Absolute Auto 1.5 1.2-4.9 - X10* 3/uL Monocytes Absolute Auto 0.6 0.1-1.2 - X10*3/ uL Eosinophils Absolute Auto 0.1 0.0-0.4 - X10* 3/uL Basophils Absolute Auto 0.1 0.0-0.2 - X10*3/ uL NRBC Abs Auto 0.000 0.0-0.012 - X10*3/uL * Examination: G eneral Examination: GENERAL APPEARANCE: w ell developed, well nourished, in no acute distress. HEAD: n ormocephalic, atraumatic. EYES: p upils equal, round, reactive to light and accommodation, sclera non-icteric. EARS: n ormal. ORAL CAVITY: m ucosa moist. THROAT: c lear. NECK/THYROID: n vanesa supple, full range of motion, no cervical lymphadenopathy, no bruits. SKIN: w arm and dry, no suspicious lesions. HEART: r egular rate and rhythm, S1, S2 normal, 2/6 jacques.? LUNGS: c lear to auscultation bilaterally. BREASTS: d one by aviation tactical readiness officer. ABDOMEN: s oft, nontender, nondistended, bowel sounds present, normal, no organomegaly , no masses palpable. RECTAL EXAM: d one by aviation tactical readiness officer. FEMALE GENITOURINARY: d one by aviation tactical readiness officer. EXTREMITIES: n o clubbing, cyanosis, or edema. NEUROLOGIC: n onfocal, motor strength normal upper and lower extremities, sensory exam intact. Assessment: * Assessment: 1. E ncounter for general adult medical examination without abnormal findings - Z00.00 (Primary) 2 . E ssential hypertension - I10 3 . P rediabetes - R73.09 4 . A rthritis of left foot - M19.072 5 . G astroesophageal reflux disease without esophagitis - K21.9 6 . I rritable bowel syndrome with constipation - K58.1 7 . D epression screening - Z13.31 Plan: * Treatment: 2. E ssential hypertension Continue Valsartan-hydroCHLOROthiazide Tablet, 80-12.5 MG, TAKE 1 TABLET BY MOUTH EVERY DAY. ? Notes: doing well on meds, will continue current regiment 3. P rediabetes Notes: good sugar, no need for medication at this time 4. A rthritis of left foot Start Tylenol 8 Hour Arthritis Pain Tablet Extended Release, 650 MG, 2 tablets as needed, Orally, twice a day, 30 days, 120 Tablet, Refills 5. Notes: can't take ibuprofen, will start tylenol arthritis 5. G astroesophageal reflux disease without esophagitis Continue Omeprazole Capsule Delayed Release, 20 MG, TAKE 1 CAPSULE BY MOUTH EVERY DAY, Orally, Once a day. Notes: stable, will continue current regiment 6. I rritable bowel syndrome with constipation Continue Hyoscyamine Sulfate ER Tablet Extended Release 12 Hour, 0.375 MG, 1 tablet, Orally, every 12 hrs. Notes: ding well, will cntinue current regiment 7. D epression screening Notes: negative screen * Procedure Codes: * Follow Up: 6 Months * * Sign off status: Completed true * Provider: Sylvester Sexton MD Date: 0 04/04/2024 Generated for Laura rivera/Mar/[place] on: 04/24/2024 10:04 PM EST History and Physical Notes * HPI (History of Present Illness) Category Sub-Category Detail Notes Category Not es Depression Screening PHQ-9 Little inte rest or pleasure in doing things: Not at all Feeling down, depressed, or hopeless: No t at all Trouble falling or staying asleep, or sl eeping too much: Not at all Feeling tired or having little energy: N ot at all Poor appetite or overeating: Not at all Feeling bad about yourself o r that you are a failure, or have let yourself or your family down: Not at all Trouble concentrating on thi ngs, such as reading the newspaper or watching television: Not at all Moving or speaking so slowly that other people could have noticed; or the opposite, being so fidgety or restless that you have been moving around a lot more than usual: Not at all Thoughts that you would be b kristy off or of hurting yourself in some way: Not at all Total Score: 0 Interpretation and Intervention Depression Debra brown Findings: Negative Follow-Up for Depression: : review of PH Q-9 found negative result, no follow-up needed SDOH Questions SDOH Questions In the past year have you been worried about losing housing?: No In the past year have you or any family members you live with been unable to get any of the following when it was really needed? Check all that apply:: None Fall Risk History Have you had any falls with injury i n the past year?: No Have you had two or more falls in the st year?: No Communication Needs Communication Needs Does the patient have a hearing impairment: No Does the patient have a vision impairmen t?: Yes If yes, what is the vision impairment?: Glasses Does the patient have a cognition impair ment?: No Examination Category Sub-Category Detail Notes Category Not es General Examination GENERAL APPEARANCE: well dev eloped, well nourished, in no acute distress HEAD: normocephalic, atrau matic EYES: pupils equal, round, reactive to light and accommodation, sclera non-icteric EARS: normal THROAT: clear NECK/THYROID: neck supple, full ra nge of motion, no cervical lymphadenopathy, no bruits HEART: regular rate and rhy thm, S1, S2 normal, 2/6 jacques LUNGS: clear to auscultatio n bilaterally ABDOMEN: soft, nontender, non distended, bowel sounds present, normal, no organomegaly , no masses palpable NEUROLOGIC: nonfocal, motor stre ngth normal upper and lower extremities, sensory exam intact SKIN: warm and dry, no eladio picious lesions EXTREMITIES: no clubbing, cyanosi s, or edema BREASTS: done by aviation tactical readiness officer RECTAL EXAM: done by aviation tactical readiness officer FEMALE GENITOURINARY: done by aviation tactical readiness officer ORAL CAVITY: mucosa moist
--- OUTSIDE RECORDS SUMMARY | 2024-05-26 05:05 | XMS_ITS ---
Author Organization Red Sexton MD Address [address] [place] [phone] Care Team Providers Care Training And Documentation Specialist Name Role Phone Red Sexton Primary Care Provider REASON FOR VISIT REFILL TRAMADOL Medications Medication SIG (Take, Route, Fr equency, Duration) Notes Start Date End Date Status traMADol HCl 50 MG 1 tablet as needed O rally can take every 12 hours for 30 days 05/26/2024 Active Encounters Encounter Location Date Provider Diagnosis Red Sexton MD [address] [place] [phone] 05/26/2024 Red Sexton Plan Of Treatment Medication Medication Name Sig Start Date Stop Date Notes traMADol HCl 50 MG 1 tablet as needed O rally can take every 12 hours for 30 days 05/26/2024 Next Appt Details Provider Name:Red paul, 03/14/2025 07:30:00 AM, [address] [place] [address], [address] [place] [address], [phone], Provider Name:Red paul, 03/30/2025 08:00:00 AM, [address] [place] [address], [address], [phone], Provider Name:Red Ewing ier, 04/06/2025 01:00:00 PM, [address], [address], [place], [phone], Progress Notes * Nadege GILMORE MDOB: [birth year] (84 yo F)Acc No.[id number]:05/26/2024 Patient: Carlos Nadege UMANZOR :1940 A ge:84 Y S ex:Female Address:[address] [place] [id number] * Refills Refill traMADol HCl Tablet, 50 MG, Orally, 60, 1 tablet as needed, can take every 12 hours, 30 days, Refills=4 * true * Date: Generated for Laura rivera/Mar/Chucks[place] on: 04/24/2024 10:04 PM EST
--- OUTSIDE RECORDS SUMMARY | 2024-07-19 11:15 | XMS_ITS ---
Author Organization Red Sexton MD Address [address] [place] [address] [phone] Care Team Providers Care Test Pilot Name Role Phone Red Sexton Primary Care Provider REASON FOR VISIT DISCUSS MINOXIDIL Encounters Encounter Location Date Provider Diagnosis Red Sexton MD [address] [facility] [address] [place] [phone] 07/19/2024 Red Sexton Plan Of Treatment Next Appt Details Provider Name:Red paul, 03/14/2025 07:30:00 AM, [address] [place] [address], [address] [place] [address], [phone], Provider Name:eRd paul, 03/30/2025 08:00:00 AM, [address] [place] [address], [address], [phone], Provider Name:Red paul, 04/06/2025 01:00:00 PM, [address] [place] [address], [address], [phone], Progress Notes * Nadege GILMORE MDOB: [birth year] (85 yo F)Acc No.[id number]:07/19/2024 Progress Notes Patient: Nadege HURLEY Provider: Sylvester Sexton MD :1940 A ge:84 Y S ex:Female Date:07/19/2024 Address:[address] [place], [place] [phone] Subjective: * Chief Complaints: * 1 . [...] 07/19/2024 Generated for Laura rivera/Mar/Ch[place] on: 1 04/24/2024 10:05 PM EST
--- OUTSIDE RECORDS SUMMARY | 2024-07-25 05:06 | XMS_ITS ---
Author Organization Red Sexton MD Address [address] [place] [address] [phone] Care Team Providers Care Construction Or Leak Gang Laborer Name Role Phone Red Sexton Primary Care Provider REASON FOR VISIT refill Medications Medication SIG (Take, Route, Fr equency, Duration) Notes Start Date End Date Status traMADol HCl 50 MG 1 tablet as needed O rally can take every 12 hours for 30 days 07/25/2024 Active Encounters Encounter Location Date Provider Diagnosis Red Sexton MD [address] [facility] [address] [place] [address] [phone] 07/25/2024 Rde Sexton Plan Of Treatment Medication Medication Name Sig Start Date Stop Date Notes traMADol HCl 50 MG 1 tablet as needed O rally can take every 12 hours for 30 days 07/25/2024 Next Appt Details Provider Name:Red paul, 03/14/2025 07:30:00 AM, [address] [place] [address], [address] [place] [address], [phone], Provider Name:Red paul, 03/30/2025 08:00:00 AM, [address] [place] [address], [address], [phone], Provider Name:Red Ewing ier, 04/06/2025 01:00:00 PM, [address], [address], [place], [phone], Progress Notes * Nadege GILMORE MDOB: [birth year] (84 yo F)Acc No.[id number]:07/25/2024 Patient: Carlos Nadege UMANZOR :1940 A ge:84 Y S ex:Female Address:[address] [place] [phone] * Refills Refill traMADol HCl Tablet, 50 MG, Orally, 60, 1 tablet as needed, can take every 12 hours, 30 days, Refills=2 * true * Date: Generated for Laura rivera/Mar/Ch[place] on: 04/24/2024 10:03 PM EST
--- OUTSIDE RECORDS SUMMARY | 2024-08-09 10:39 | XMS_ITS ---
Author Organization Red Sexton MD Address [address] [place] [address] [phone] Care Team Providers Care Welfare Interviewer Name Role Phone Red Sexton Primary Care Provider Medications Medication SIG (Take, Route, Frequency, Duration) Notes Start Date End Date Status Potassium Chloride ER 8 MEQ 2 capsules with food Orally Twice a day for 90 days Active Encounters Encounter Location Date Provider Diagnosis Red Sexton MD [address] [facility] [address] [place] [phone] 08/09/2024 Red Sexton Plan Of Treatment Medication Medication Name Sig Start Date Stop Date Notes Potassium Chloride ER 8 MEQ 2 capsules w ith food Orally Twice a day for 90 days Next Appt Details Provider Name:Red paul, 03/14/2025 07:30:00 AM, [address] [place] [address], [address], [phone], Provider Name:Red paul, 03/30/2025 08:00:00 AM, [address] [place] [address], [address], [phone], Provider Name:Red paul, 04/06/2025 01:00:00 PM, [address] [facility] [address], [address], [place], [place], [phone], Progress Notes * Nadege GILMORE MDOB: [birth year] (84 yo F)Acc No.[id number]:08/09/2024 Patient: Nadege HURLEY :1940 A ge:84 Y S ex:Female Address:[address] [place] [phone] * Refills Refill Potassium Chloride ER Tablet Extended Release, 8 MEQ, Orally, 360 Capsule, 2 capsules with food, Twice a day, 90 days, Refills=4 * true * Date: Generated for Laura rivera/Mar/[place] on: 04/24/2024 10:03 PM EST
--- OUTSIDE RECORDS SUMMARY | 2024-09-22 05:40 | XMS_ITS ---
Author Organization Red Sexton MD Address [address] [place] [address] [phone] Care Team Providers Care Corporate Strategy Associate Name Role Phone Red Sexton Primary Care Provider REASON FOR VISIT RF Trsamadol Medications Medication SIG (Take, Route, Fr equency, Duration) Notes Start Date End Date Status traMADol HCl 50 MG 1 tablet as needed O rally can take every 12 hours for 30 days 09/22/2024 Active Encounters Encounter Location Date Provider Diagnosis Red Sexton MD [address] [place] [phone] 09/22/2024 Red Sexton Plan Of Treatment Medication Medication Name Sig Start Date Stop Date Notes traMADol HCl 50 MG 1 tablet as needed O rally can take every 12 hours for 30 days 09/22/2024 Next Appt Details Provider Name:Red paul, 03/14/2025 07:30:00 AM, [address] [place] [address], [address] [place] [address], [phone], Provider Name:Red paul, 03/30/2025 08:00:00 AM, [address] [place] [address], [place] [address], [place], [place], [phone], Provider Name:Red Ewing humberto, 04/06/2025 01:00:00 PM, [address], [address], [place], [phone], Progress Notes * Nadege GILMORE MDOB: [birth year] (84 yo F)Acc No.[id number]:09/22/2024 Patient: Nadege HURLEY :1940 A ge:84 Y S ex:Female Address:[address] [place] [phone] * Refills Refill traMADol HCl Tablet, 50 MG, Orally, 60, 1 tablet as needed, can take every 12 hours, 30 days, Refills=2 * true * Date: Generated for Laura rivera/Mar/Ch[place]itting on: 04/24/2024 10:04 PM EST
--- OUTSIDE RECORDS SUMMARY | 2024-10-03 09:15 | XMS_ITS ---
Author Organization Red Sexton MD Address [address] [place], [place] [phone] Care Team Providers Care Historian Research Assistant Name Role Phone Red Sexton Primary Care Provider Allergies Allergen (clinical drug ingredient) Drug/Non Drug Allergy documented on EMR Reaction Allergy Type Onset Date Status azithromycin Zithromax Unknown Drug Allergy Acti ve penicillin V Penicillin V Potassium swelling Drug Allergy Active sulfamethoxazole / trimethoprim Bactrim DS Unknown Drug Allergy Active Results Component Value Reference Range Notes Hemoglobin A1c Reviewed date:10/03/2024 02:30:15 PM Interpretation: Performing Lab: Notes/Report: Hemoglobin A1c 5.1 Glucose, finger stick Reviewed date:10/03/2024 02:20:17 PM Interpretation: Performing Lab: Notes/Report: Value 115 REASON FOR VISIT 6 MO F/U Medications Medication SIG (Take, Route, Frequency, Duration) Notes Start Date End Date Status Fioricet 50-300-40 MG 1 capsule as neede d Orally every 4 hrs Not-Taking Betamethasone Dipropionate 0.05 % 1 application to affected area Externally Once a day for 30 days 10/14/2012 Not-Taking Senna Lax 8.6 MG 2 tablets at bedtime as needed Orally Once a day Not-Taking Valsartan-hydroCHLOROthia zide 80-12.5 MG TAKE 1 TABLET BY MOUTH EVERY DAY Active Hyoscyamine Sulfate ER 0.375 MG 1 tablet Orally every 12 hrs 06/11/2023 Active LORazepam 0.5 MG 1 tablet as needed Orally Twice a day for 5 days 05/24/2021 Not-Taking Hyoscyamine Sulfate 0.125 MG TAKE 1 TABLET UNDER THE TONGUE EVERY 4 HOURS EVERY 12 HRS NEEDED ORALLY 30 DAYS Orally Three times a day Not-Taking Aspirin 325 MG 1 tablet Orally Once a day Not-Taking Potassium Chloride ER 8 MEQ 2 capsules with food Orally Twice a day for 90 days Active traMADol HCl 50 MG 1 tablet as needed Orally can take every 12 hours for 30 days 09/22/2024 Active Tylenol 8 Hour Arthritis Pain 650 MG 2 tablets as needed Orally twice a day for 30 days 04/04/2024 Active Yuvafem 10 MCG 1 tablet Vaginal QOD Active Omeprazole 20 MG TAKE 1 CAPSULE BY MO UTH EVERY DAY Orally Once a day Active oxyBUTYnin Chloride 5 MG TAKE 1 TABLET ( 5MG) BY MOUTH ONCE A DAY FOR 90 DAYS. Orally Once a day for 90 days Active Problems Problem Type SNOMED Code ICD Code Onset Dates Problem Status W/U Status Risk Notes Problem Irritable bladder (730192523) Irritable bladder (N32.89) Active confirmed Vital Signs Blood pressure systolic 154 mm Hg 10/04/19 25 Blood pressure diastolic 70 mm Hg 025 Height 68 in 10/03/2024 Weight 182 lbs 10/03/2024 BMI 27.67 kg/m2 10/03/2024 weight is up 2 pounds since 04-04-24 Encounters Encounter Location Date Provider Diagnosis Red Sexton MD [address] [place] [address] [address] [place], [place] [phone] 10/03/2024 Red Sexton Prediabetes R73.09 ; Essential hypertension I10 and Irritable bladder N32.89 Assessments Encounter Date Diagnosis (ICD Code) Assessment Notes Treatment Notes Treatment Clinical Notes Section Notes 10/03/2024 Prediabetes (ICD-10 - R73.09) stable, no need for medication at this time, will continue to montor 10/03/2024 Essential hypertension (ICD-10 - I10) stable, will continue current regiment 10/03/2024 Irritable bladder (ICD-10 - N32.89) stable, will continue current regiment Plan Of Treatment Medication Medication Name Sig Start Date Stop Date Notes Valsartan-hydroCHLOROthiazid e 80-12.5 MG TAKE 1 TABLET BY MOUTH EVERY DAY Hyoscyamine Sulfate ER 0.375 MG 1 tablet Orally every 12 hrs 06/11/2023 oxyBUTYnin Chloride 5 MG TAKE 1 TABLET ( 5MG) BY MOUTH ONCE A DAY FOR 90 DAYS. Orally Once a day for 90 days Treatment Notes Assessment Notes Prediabetes stable, no need for medication at this time, will continue to montor Essential hypertension stable, will cont inue current regiment Irritable bladder stable, will continu e current regiment Next Appt Details Provider Name:Red paul, 03/14/2025 07:30:00 AM, [address] [place] [address], [address], [phone], Provider Name:Red paul, 03/30/2025 08:00:00 AM, [address] [place] [address], [address], [phone], Provider Name:Red paul, 04/06/2025 01:00:00 PM, [address] [place] [address], [place] [address], [place], [place], [phone], Progress Notes * Nadege GILMORE MDOB: [birth year] (84 yo F)Acc No.[id number]:10/03/2024 Progress Notes Patient: Carlos GOLDENREALai Nadege Og Provider: Sylvester Sexton MD :1940 A ge:84 Y S ex:Female Date:10/03/2024 Address:[address] [place], [place] [id number] Subjective: * Chief Complaints: * 6 MO F/U * HPI: S ymptom(s): patient is a 84 yo female here for 6 month follow up visit/ here for follow up. * ROS: G eneral/Constitutional: Denies C hills. D enies F atigue. D enies F ever. D enies H eadache. E NT: Denies S ore throat. E ndocrine: Denies D ifficulty sleeping. D enies D izziness.?Denies E xcessive sweating. D enies E xcessive thirst. D enies F requent urination. R espiratory: Denies C ough. D enies S hortness of breath at rest. D enies S hortness of breath with exertion. G astrointestinal: Denies D iarrhea. D enies N ausea. * Medical History: * Surgical History: * Hospitalization/Major Diagno stic Procedure: * Medications: T akingYuvafem 10 MCG Tablet 1 tablet Vaginal QOD oxyBUTYnin Chloride 5 MG Tablet TAKE 1 TABLET (5MG) BY MOUTH ONCE A DAY FOR 90 DAYS. Orally Once a day Tylenol 8 Hour Arthritis Pain 650 MG Tablet Extended Release 2 tablets as needed Orally twice a day Hyoscyamine Sulfate ER 0.375 MG Tablet Extended Release 12 Hour 1 tablet Orally every 12 hrs Valsartan-hydroCHLOROthiazide 80-12.5 MG Tablet TAKE 1 TABLET BY MOUTH EVERY DAY Omeprazole 20 MG Capsule Delayed Release TAKE 1 CAPSULE BY MOUTH EVERY DAY Orally Once a day Potassium Chloride ER 8 MEQ Tablet Extended Release 2 capsules with food Orally Twice a day traMADol HCl 50 MG Tablet 1 tablet as needed Orally can take every 12 hours Taking Yuvafem 10 MCG Tablet 1 tablet Vaginal QOD Taking oxyBUTYnin Chloride 5 MG Tablet TAKE 1 TABLET (5MG) BY MOUTH ONCE A DAY FOR 90 DAYS. Orally Once a day Taking Tylenol 8 Hour Arthritis Pain 650 MG Tablet Extended Release 2 tablets as needed Orally twice a day Taking Hyoscyamine Sulfate ER 0.375 MG Tablet Extended Release 12 Hour 1 tablet Orally every 12 hrs Taking Valsartan- hydroCHLOROthiazide 80-12.5 MG Tablet TAKE 1 TABLET BY MOUTH EVERY DAY Taking Omeprazole 20 MG Capsule Delayed Release TAKE 1 CAPSULE BY MOUTH EVERY DAY Orally Once a day Taking Potassium Chloride ER 8 MEQ Tablet Extended Release 2 capsules with food Orally Twice a day Taking traMADol HCl 50 MG [...] to affected area Externally Once a day Medication List reviewed and reconciled with the patientNot-Taking/PRN LORazepam 0.5 MG Tablet 1 tablet as [...] to affected area Externally Once a day Medication List reviewed and reconciled with the patient * Allergies: P enicillin V Potassium: swellingBactrim DSZithromaxyes[Allergies Verified] Objective: * Vitals: H t: 68, Wt: 182, BMI:27.67, BP:154/70, Repeat BP:118/70, Wt-k.55. weight is up 2 pounds since 04-04-24. * Examination: G eneral Examination: GENERAL APPEARANCE: a lert, well hydrated, in no distress.? HEAD: n ormocephalic. EARS: B OTH EARS, normal, tympanic membrane intact, clear.? SKIN: g ood turgor. HEART: r egular rate and rhythm, no murmurs, rubs, gallops.? LUNGS: n o wheezes, rales, rhonchi, good air movement, clear to auscultation bilaterally. Assessment: * Assessment: 1. P rediabetes - R73.09 (Primary) 2 . E ssential hypertension - I10 ? 3 . I rritable bladder - N32.89 Plan: * Treatment: Value Reference Range H emoglobin A1c 5.1 ?LAB: Glucose, finger stick (Collection Date & Time - 10/03/2024)* Value Reference Range V alue 115 Notes: stable, no need for medication at this time, will continue to montor?? 2.?Essential hypertension? Continue Valsartan-hydroCHLOROthiazide Tablet, 80-12.5 MG, TAKE 1 TABLET BY MOUTH EVERY DAY.? Notes: stable, will continue current regiment??3.?Irritable bladder? Continue oxyBUTYnin Chloride Tablet, 5 MG, TAKE 1 TABLET (5MG) BY MOUTH ONCE A DAY FOR 90 DAYS., Orally, Once a day, 90 days, 90, Refills 11;?Continue Hyoscyamine Sulfate ER Tablet Extended Release 12 Hour, 0.375 MG, 1 tablet, Orally, every 12 hrs.?? Notes: stable, will continue current regiment?? * Procedure Codes: 8 2947 ASSAY, GLUCOSE, BLOOD QUANT, Modifiers: QW 68353 GLYCATED HEMOGLOBIN TEST, Modifiers: QW * * Sign off status: Completed true * Provider: Sylvester Sexton MD Date: 0 10/03/2024 Generated for Laura rivera/Mar/eTransmitting on: 1 04/24/2024 10:04 PM EST History and Physical Notes * HPI (History of Present Illness) Category Sub-Category Detail Notes Category Not es Symptom(s) patient is a 84 yo female here for 6 month follow up visit/ here for follow up. Examination Category Sub-Category Detail Notes Category Not es General Examination GENERAL APPEARANCE: alert, w ell hydrated, in no distress HEAD: normocephalic EARS: BOTH EARS, normal, t ympanic membrane intact, clear HEART: regular rate and rhy thm, no murmurs, rubs, gallops LUNGS: no wheezes, rales, r honchi, good air movement, clear to auscultation bilaterally SKIN: good turgor
--- OUTSIDE RECORDS SUMMARY | 2024-11-18 05:40 | XMS_ITS ---
Author Organization Red Sexton MD Address [address] [place] [phone] Care Team Providers Care Architectural Sales Consultant Name Role Phone Red Sexton Primary Care Provider REASON FOR VISIT rf Tramadol Medications Medication SIG (Take, Route, Fr equency, Duration) Notes Start Date End Date Status traMADol HCl 50 MG 1 tablet as needed O rally can take every 12 hours for 30 days 11/18/2024 Active Encounters Encounter Location Date Provider Diagnosis Red Sexton MD [address] [place] [phone] 11/18/2024 Red Sexton Plan Of Treatment Medication Medication Name Sig Start Date Stop Date Notes traMADol HCl 50 MG 1 tablet as needed O rally can take every 12 hours for 30 days 11/18/2024 Next Appt Details Provider Name:Red paul, 03/14/2025 07:30:00 AM, [address] [place] [address], [address], [phone], Provider Name:Red paul, 03/30/2025 08:00:00 AM, [address] [place] [address], [address], [phone], Provider Name:Red Ewing ier, 04/06/2025 01:00:00 PM, [address], [address], [place], [phone], Progress Notes * Nadege GILMORE MDOB: [birth year] (84 yo F)Acc No.[id number]:11/18/2024 Patient: Carlos Nadege UMANZOR :1940 A ge:84 Y S ex:Female Address:[address] [place] [phone] * Refills Refill traMADol HCl Tablet, 50 MG, Orally, 60, 1 tablet as needed, can take every 12 hours, 30 days, Refills=2 * true * Date: Generated for Laura rivera/Mar/Chulaitting on: 04/24/2024 10:05 PM EST
--- OUTSIDE RECORDS SUMMARY | 2024-12-01 04:30 | XMS_ITS ---
Author Organization Red Sexton MD Address [address] [place], [place] [phone] Care Team Providers Care Seat Joiner Chainstitch Name Role Phone Red Sexton Primary Care [...] Omeprazole 20 MG TAKE 1 CAPSULE BY [facility] EVERY DAY Orally Once a day [...] Location Date Provider Diagnosis Red Sexton MD [address] [place] [phone] 12/01/2024 Red Sexton Essential hypertension I10 and [...] Name:Red Ewing ier, 03/14/2025 07:30:00 AM, [address], [address], [place], [phone], Provider Name:Red Ewing ier, 03/30/2025 08:00:00 AM, [address] [place] [address], [address], [place], [place], [phone], Provider Name:Red Ewing ier, 04/06/2025 01:00:00 PM, [address] [facility], [address], [place], [phone], Progress Notes * Nadege GILMORE MDOB: [birth year] (84 yo F)Acc No.[id number]:12/01/2024 Progress Notes Patient: Carlos NOÉ Nadege Og Provider: Sylvester Sexton MD :1940 A ge:84 Y S ex:Female Date:12/01/2024 Address:[address] [place] [phone] Subjective: * Chief Complaints: * B LOCKED [...] Sexton MD Date: 0 12/01/2024 Generated for Adriani nicole/Mar/eTgarysmitting on: 1 04/24/2024 10:03 PM EST History and Physical Notes * [...]
--- OUTSIDE RECORDS SUMMARY | 2025-01-16 09:56 | XMS_ITS ---
Author Organization Red Sexton MD Address [address] [place] [phone] Care Team Providers Care Prescription Benefit Specialist Name Role Phone Red Sexton Primary [...] [facility] [address] [place] [phone] 01/16/2025 Red Sexton Plan Of Treatment Medication Medication Name Sig Start Date Stop Date Notes traMADol HCl 50 MG 1 tablet as needed O rally can take every 12 hours for 30 days 01/16/2025 Next Appt Details Provider Name:Red paul, 03/14/2025 07:30:00 AM, [address] [place] [address], [address], [phone], Provider Name:Red paul, 03/30/2025 08:00:00 AM, [address] [place] [address], [address], [phone], Provider Name:Red Ewing ier, 04/06/2025 01:00:00 PM, [address], [address], [place], [phone], Progress Notes * Nadege GILMORE MDOB: [birth year] (85 yo F)Acc No.[id number]:01/16/2025 Patient: Carlos Nadege UMANZOR :1940 A ge:85 Y S ex:Female Address:[address] [place] [phone] * Refills Refill traMADol HCl Tablet, 50 MG, Orally, 60, 1 tablet as needed, can take every 12 hours, 30 days, Refills=2 * true * Date: Generated for Laura rivera/Mar/Chucksmitting on: 04/24/2024 10:04 PM EST
[2025-02-21 15:48] VITALS: BP 139/66; PULSE 97; RESP 18; TEMP 36.6; O2SAT 98; BMI 25.2
--- NOTE | 2025-02-21 16:02 | ED_ITS ---
HPI - General Adult General Chief complaint: General Medical Stated complaint: rectal issues History of Present Illness HPI narrative: patient left before completion of treatment by ED provider. Related Data Home Medications ?Medication ?Instructions ?Recorded ?Confirmed omeprazole 20 mg capsule,delayed 1 cap PO DAILY 08/13/21 release oxybutynin chloride 5 mg tablet 1 tab PO DAILY 2 08/13/21 valsartan 80 1 tab PO DAILY 04/11/2109/27 mg-hydrochlorothiazide 12.5 mg tablet estradiol 10 mcg vaginal tablet 1 tab vaginal 3XW 06/2808/13/21 (Yuvafem) hyoscyamine sulfate 0.125 mg 1 tab sublingual Q4H PRN Abdominal 04/12/21 08/13/21 sublingual tablet Pain lorazepam 0.5 mg tablet 1 tab PO Q6H PRN Anxiety 06/2808/13/21 tramadol 50 mg tablet 1 tab PO BID PRN Pain 08/13/21 ibuprofen 800 mg tablet 800 mg PO BID 02/10/22 Previous Rx's ?Medication ?Instructions ?Recorded miscellaneous medical supply #1 ea 04/25/21 docusate sodium 100 mg capsule 100 mg PO BID #20 caps 02/17/25 (Colace) polyethylene glycol 3350 17 17 g PO BID PRN constipati on #238 02/17/25 gram/dose oral powder (Miralax) grams Allergies Allergy/AdvReac Type Severity Reaction Status Date / Time Penicillins (PENICILLINS) Allergy Severe ANGIOEDEMA Verified 02/21/25 15:51 azithromycin (AZITHROMYCIN) Allergy Intermediate HIVES/RASH/THRUSH/FINGERNAIL&TOENAIL Verified 02/21/25 15:51 INFECTION [facility] Past Medical History Medical History Personal history of COVID-19 COVID-19 vaccine series completed IBS (irritable bowel syndrome) Paralyzed vocal cords Osteoarthritis Hiatal hernia GERD (gastroesophageal reflux disease) Migraines HTN (hypertension) Surgical History History of esophagogastroduodenoscopy (EGD) H/O colonoscopy Hx of cholecystectomy Hx of laparoscopic gastric banding History of total left knee replacement History of total right knee replacement Social History Social History Household Members: Spouse Housing: House Are you a primary director of healthcare systems to a significant other at home: No Do you presently have visiting nurse or other home services: No Alcohol intake: current Alcohol intake frequency: does not drink Patient Tobacco Use Status: Former Tobacco user Tobacco use type: Cigarette Advance Directives: Yes Advance Directives on File: Yes Advance Directives Date on File: 05/13/16 Do you have a plan to hurt others: No Plan service: No Current occupational status: retired Physical Exam ED Vital Signs: Vital Signs - 24 hr 02/21/25 15:48 Temperature 98 F Pulse Rate 97 Respiratory Rate 18 Blood Pressure 139/66 Pulse Oximetry 98 Oxygen Delivery Method Room Air BMI result Body Mass Index 25.2 Course Course Course Narrative: RME: 85-year-old female who was recently seen here for fecal impaction resolved enema presents to the ED for continuous bowel movements that is she has no control over no bladder control. Patient denies back pain. Patient states she has to wear a diaper. Patient states hemorrhoids very painful. Labs ordered Medical Decision Making Lab Data 02/21/25 16:29 02/21/25 16:29 Labs: Lab Results 02/21/25 Range/Units 16:29 WBC 8.8 (4.8-10.8) X10*3/uL RBC 4.42 (4.20-5.50) X10*6/uL Hgb 13.7 (12.0-16.0) g/dl Hct 40.3 (37.0-47.0) % MCV 91.2 (80.0-98.0) fL MCH 31.0 (27.0-33.0) pg MCHC 34.0 (31.0-35.0) g/dl RDW 13.7 (11.0-16.0) % Plt Count 329 (160-400) X10*3/uL MPV 8.8 L (9.4-12.3) fL Immature Gran % (Auto) 0.8 H (0.0-0.4) % Neut % (Auto) 73.6 H (45-73) % Lymph % (Auto) 15.4 L (20-40) % Noble % (Auto) 9.1 (2-11) % Eos % (Auto) 0.8 (0-4) % Baso % (Auto) 0.3 (0-2) % Lymph # (Auto) 1.4 (1.2-4.9) X10*3/uL Noble # (Auto) 0.8 (0.1-1.2) X10*3/uL Eos # (Auto) 0.1 (0.0-0.4) X10*3/uL Baso # (Auto) 0.0 (0.0-0.2) X10*3/uL Abs Immat Gran (auto) 0.07 H (0.00-0.03) X10*3/uL Absolute Neuts (auto) 6.5 (2.0-8.3) x10*3/uL Absolute Nucleated RBC 0.000 (0.0-0.012) X10*3/uL Nucleated RBC % (auto) 0.0 (0.0-0.2) /100WBC Sodium 127 L (135-145) mmol/L Potassium 3.9 (3.3-5.1) mmol/L Chloride 96 (96-108) mmol/L Carbon Dioxide 21 L (22-29) mmol/L Anion Gap 14 (12-20) BUN 31 H (9-16) mg/dL Creatinine 1.08 (0.5-1.4) mg/dL Estim Creat Clear Calc 39.1 Estimated GFR 48 Random Glucose 103 (60-115) mg/dL Calcium 9.3 (8.4-10.2) mg/dL Magnesium 2.1 (1.6-2.6) mg/dL Total Bilirubin 1.0 (0.0-1.0) mg/dL AST 18 (5-31) U/L ALT 11 (0-31) U/L Alkaline Phosphatase 84 (39-117) U/L Total Protein 6.7 (6.5-8.0) g/dL Albumin 4.1 (3.5-5.0) g/dL Discharge Plan Discharge Clinical Impression: Diarrhea Patient Disposition: Left W/O Completing Treatment Prescriptions: No Action (DME) miscellaneous medical supply Misc See Rx Instructions .MEDSUPPLY Qty: 1 0RF Rx Instructions: Bedside Commode tramadol 50 mg tablet 1 tab PO BID PRN (Reason: Pain) valsartan-hydrochlorothiazide 80-12.5 mg tablet 1 tab PO DAILY omeprazole 20 mg capsule,delayed release(DR/EC) 1 cap PO DAILY oxybutynin chloride 5 mg tablet 1 tab PO DAILY lorazepam 0.5 mg tablet 1 tab PO Q6H PRN (Reason: Anxiety) estradiol [Yuvafem] 10 mcg tablet 1 tab vaginal 3XW hyoscyamine sulfate 0.125 mg tablet, sublingual 1 tab sublingual Q4H PRN (Reason: Abdominal Pain) docusate sodium [Colace] 100 mg capsule 100 mg PO BID Qty: 20 0RF polyethylene glycol 3350 [Miralax] 17 gram/dose powder 17 g PO BID PRN (Reason: constipation) Qty: 238 0RF ibuprofen 800 mg tablet 800 mg PO BID Discharge Date/Time: 02/21/25 22:12
[2025-02-21 16:52] LABS: MANUAL DIFF FLAG NO
[2025-02-21 16:56] LABS: Hematocrit 40.3 % (37.0-47.0); Hemoglobin 13.7 g/dl (12.0-16.0); Imm Gran Abs Auto 0.07 X10*3/uL (0.00-0.03); Imm Gran Pct Auto 0.8 % (0.0-0.4); Lymphocytes Absolute Auto 1.4 X10*3/uL (1.2-4.9); Mean Corpuscular HGB Conc 34.0 g/dl (31.0-35.0); Mean Corpuscular Hemoglobin 31.0 pg (27.0-33.0); Mean Corpuscular Volume 91.2 fL (80.0-98.0); NRBC Abs Auto 0.000 X10*3/uL (0.0-0.012); NRBC Pct Auto 0.0 /100WBC (0.0-0.2); Platelet Count 329 X10*3/uL (160-400); Red Blood Count 4.42 X10*6/uL (4.20-5.50); White Blood Count 8.8 X10*3/uL (4.8-10.8)
[2025-02-21 17:09] LABS: Alanine Aminotransferase 11 U/L (0-31); Albumin Level 4.1 g/dL (3.5-5.0); Alkaline Phosphatase 84 U/L (39-117); Anion Gap 14 (12-20); Aspartate Amino Transferase 18 U/L (5-31); Blood Urea Nitrogen 31 mg/dL (9-16); Calcium 9.3 mg/dL (8.4-10.2); Carbon Dioxide 21 mmol/L (22-29); Chloride 96 mmol/L (96-108); Creatinine Clr Calc Pharmacy 39.1; Estimated Glomerular Filt Rate 48; Magnesium 2.1 mg/dL (1.6-2.6); Potassium 3.9 mmol/L (3.3-5.1); Sodium 127 mmol/L (135-145); Total Protein 6.7 g/dL (6.5-8.0)
--- OUTSIDE RECORDS SUMMARY | 2025-02-21 22:03 | XMS_ITS | Patient Health Record ---
Author Organization Red Sexton MD Address [address] [place], [place] [id number] Care Team Providers Care Internal Combustion Engine Subassembler Name Role Phone Red Sexton Primary Care [...] ff Reviewed date:03/29/2024 01:21:01 PM Interpretation: Performing Lab:[facility], [address] [place] [phone] Notes/Report: White Blood Count 5.0 4.8-10.8 X10*3/uL [...] NRBC Abs Auto 0.000 0.0-0.012 X10*3/uL Comprehensive [place]. Panel Fa st Reviewed date:03/29/2024 01:20:27 PM Interpretation: Performing Lab:[facility], [address] [place] [phone] Notes/Report: Sodium 132 135-145 mmol/L Potassium 4.0 [...] Panel Reviewed date:03/29/2024 12:35:19 PM Interpretation: Performing Lab:[facility], [address] [place] [phone] Notes/Report: Triglycerides 105 <150 mg/dL Desirable Triglyceride: [...] Random Reviewed date:03/29/2024 12:40:06 PM Interpretation: Performing Lab:[facility], [address] [place] [phone] Notes/Report: Creatinine Urine 43.63 Microalbumin Urine < 5.0 Microalbum/Creatinine Ratio Ur TNP <30 ug/mg cr Unable to calculate albumin/creatinine ratio due to low microalbumin or creatinine result. Hemoglobin A1c Reviewed date:03/29/2024 12:35:34 PM Interpretation: Performing Lab:[facility], [address] [place] [phone] Notes/Report: Hemoglobin A1c % 5.0 <6.0 % [...] average glucose, using the formula of the X2T-Zicivyu Average Glucose study (ADAG), Diabetes Care, Vol.31,#8, Oct. 2007 UA ClnCatch+Micro w/rflx Cul t Reviewed date:03/29/2024 04:36:56 PM Interpretation: Performing Lab:[facility], [address] [place] [phone] Notes/Report: Urine, Clean Catch Color Urine Yellow Appearance Urine Clear PH 7.0 5.0-9.0 Glucose Urine UA Negative Negative mg/dL Urine Blood Negative Negative Specific [place] - Urine 1.015 1.005-1.025 Urine Protein Negative [...] Culture Reviewed date:03/31/2024 05:51:34 PM Interpretation: Performing Lab:[facility], [address] [place] [phone] Notes/Report: Urine Culture Report Result Urine Culture 50,000 to 100,000 cfu/ml Urine Culture Mixed bacterial yfn a characteristic of Urine Culture urogenital contamination. MM tomosynthesis screening B I Reviewed date:06/12/2024 10:00:51 AM Interpretation: Performing Lab: Notes/Report: [facility] [address] [place] [address] Mammography Report Signed Patient: Nadege Ramos MR#: [id number] : 1940 Acct:[id number] Age/Sex: 84 / F ADM Date: 06/03/24 Loc: MAMMO Attending Dr: Red Sexton MD Ordering Physician: Red Sexton MD Results: 1Ne gative Date of Service: 06/03/24 Follow Up: 1 Year From Orig inal Mammogram Procedure(s): MM tomosynthesis screening BI Accession Number(s): [id number] cc: Red Sexton MD EXAMINATION: MM SCREENING [...] 06/11/24 1440 DD/ 0945 TD/TT: 06/03/24 1010 Travel Cota: [facility] [address] [place] [address] Mammography Report Signed Patient: Milton Ramos MR#: [id number] : 1940 Acct:[id number] Age/Sex: 84 / F ADM Date: 06/03/24 Loc: HO.MAMMO Attending Dr: Red Sexton MD Ordering Physician: Red Sexton MD Results: 1Ne gative Date of Service: 06/03/24 Follow Up: 1 Year From Orig inal Mammogram Procedure(s): MM tomosynthesis screening BI Accession Number(s): [id number] cc: Red Sexton MD EXAMINATION: MM SCREENING [...] 06/11/24 1440 DD/ 0945 TD/TT: 06/03/24 1010 Travel Cota: SEAN ClnCatch+Micro w/rflx Cul t (Not yet reviewed by provider) Interpretation:03-14-2025 Performing Lab:[address] [address] Notes/Report: [id number] 2040 Urine, Clean Catch Color Urine Yellow Appearance Urine Clear PH 7.5 5.0-9.0 Glucose Urine UA Negative Negative mg/dL Urine Blood Small (1+) Negative Specific [place] - Urine 1.010 1.005-1.025 Urine Protein Negative Neg-Trace mg/dL Urine Ketones Negative Negative mg/dL Nitrite Urine Negative Negative Leukocyte Esterase Urine Trace Negative RBC Urine 0-2 0-2 /HPF WBC Urine 0-5 0-5 /HPF Squamous Epithelial Cell Urine 0-2 0-2 /HPF Bacteria Urine Trace None Seen Hyaline Casts Urine 0-2 0-2 /LPF Yeast Urine Present Complete Blood Count Auto Di ff Reviewed date:02/17/2025 05:50:28 PM Interpretation: Performing Lab:[address] [address] Notes/Report: White Blood Count 14.4 4.8-10.8 X10*3/uL [...] Panel Reviewed date:02/17/2025 05:51:41 PM Interpretation: Performing Lab:[facility], [address] [place] [phone] Notes/Report: Sodium 128 135-145 mmol/L Potassium 4.7 [...] Acid Reviewed date:02/17/2025 05:27:28 PM Interpretation: Performing Lab:[address] [address] Notes/Report: Lactic Acid 1.2 0.5-2.0 mmol/L Magnesium Reviewed date:02/17/2025 05:39:51 PM Interpretation: Performing Lab:[address] [phone] Notes/Report: Magnesium 2.6 1.6-2.6 mg/dL SLIDE REVIEW Reviewed date:02/17/2025 05:29:25 PM Interpretation: Performing Lab:[address] [phone] Notes/Report: SLIDE REVIEW VERIFIED CT abdomen pelvis wo con Reviewed date:02/17/2025 05:29:06 PM Interpretation: Performing Lab: Notes/Report: [address] [address] [address] Scan Report Signed Patient: Nadege Ramos MR#: [id number] : 1940 Acct:[id number] Age/Sex: 85 / F ADM Date: 02/17/25 Loc: HO.ED Attending Dr: Ordering Physician: Fredi Amaya Date of Service: 02/17/25 Procedure(s): CT abdomen pelvis wo IV con Accession Number(s): [id number] cc: Red Sexton MD; Fredi Amaya Report Number: [id number]: Total DLP = 633.00 mGy-cm Reason for [...] by: Manish Levin MD 02/17/2025 03:14 PM [facility] Dictated By: Manish Levin MD Signed By: <Electronically signed by Manish Levin MD in OV> 02/17/25 1514 DD/ 1454 TD/TT: 02/17/25 1501 Travel Cota: [address] [address] [address] Scan Report Signed Patient: Milton Ramos MR#: [id number] : 1940 Acct:[id number] Age/Sex: 85 / F ADM Date: 02/17/25 Loc: HO.ED Attending Dr: Ordering Physician: Fredi Amaya Date of Service: 02/17/25 Procedure(s): CT abd omen pelvis wo IV con Accession Number(s): [id number] cc: Red Sexton MD; Fredi Amaya Report Number: [id number]: Total DLP = 633.00 mGy-cm Reason for [...] by: Manish Levin MD 02/17/2025 03:14 PM [facility] Dictated By: Manish Levin MD Signed By: <Electronically signed by Manish Levin MD in OV> 02/17/25 1514 DD/ 1454 TD/TT: 02/17/25 1501 Travel Cota: Complete Blood Count Auto Di ff Reviewed date:02/21/2025 05:07:56 PM Interpretation: Performing Lab:[facility], [address] [place] [phone] Notes/Report: White Blood Count 8.8 4.8-10.8 X10*3/uL Red Blood Count 4.42 4.20-5.50 X10*6/uL Hemoglobin 13.7 12.0-16.0 g/dl Hematocrit 40.3 37.0-47.0 % Mean Corpuscular Volume 91.2 80.0-98.0 fL Mean Corpuscular Hemoglobin 31.0 27.0-33.0 pg Mean Corpuscular HGB Conc 34.0 31.0-35.0 g/dl Red Cell Distribution Width 13.7 11.0-16.0 % Platelet Count 329 160-400 X10*3/uL Mean Platelet Volume 8.8 9.4-12.3 fL Neutrophils Percent Auto 73.6 45-73 % Imm Gran Pct Auto 0.8 0.0-0.4 % Lymphocytes Percent Auto 15.4 20-40 % Monocytes Percent Auto 9.1 2-11 % Eosinophils Percent Auto 0.8 0-4 % Basophils Percent Auto 0.3 0-2 % NRBC Pct Auto 0.0 0.0-0.2 /100WBC Neutrophils Absolute Auto 6.5 2.0-8.3 x10*3/u L Imm Gran Abs Auto 0.07 0.00-0.03 X10*3/uL Lymphocytes Absolute Auto 1.4 1.2-4.9 X10*3/u L Monocytes Absolute Auto 0.8 0.1-1.2 X10*3/uL Eosinophils Absolute Auto 0.1 0.0-0.4 X10*3/u L Basophils Absolute Auto 0.0 0.0-0.2 X10*3/uL NRBC Abs Auto 0.000 0.0-0.012 X10*3/uL Comprehensive Met. Panel Reviewed date:02/21/2025 06:17:51 PM Interpretation: Performing Lab:[facility], [address] [place] [phone] Notes/Report: Sodium 127 135-145 mmol/L Potassium 3.9 3.3-5.1 mmol/L Chloride 96 96-108 mmol/L Carbon Dioxide 21 22-29 mmol/L Anion Gap 14 12-20 Blood Urea Nitrogen 31 9-16 mg/dL Creatinine 1.08 0.5-1.4 mg/dL Creatinine Clr Calc Pharmacy 39.1 Provided height and weight: 172.72 cm, 75.296 kg. eGFR (calculated from the MDRD study equation) and eCrCl (calculated from the Cockcroft-Gault equation) are based on different parameters and may not yield comparable results. If eCrCl result is absurd, please check patient's height/weight. Estimated Glomerular Filt Rate 48 Chronic Kidney Disease: Estimated GFR < 60 mL/min/1.73m2 Severe Kidney Disease: Estimated GFR < 15 mL/min/1.73m2 Glucose Random 103 60-115 mg/dL Calcium 9.3 8.4-10.2 mg/dL Bilirubin Total 1.0 0.0-1.0 mg/dL Aspartate Amino Transferase 18 5-31 U/L Alanine Aminotransferase 11 0-31 U/L Total Protein 6.7 6.5-8.0 g/dL Albumin Level 4.1 3.5-5.0 g/dL Alkaline Phosphatase 84 39-117 U/L Magnesium Reviewed date:02/21/2025 06:17:26 PM Interpretation: Performing Lab:[facility], [address] [place] [phone] Notes/Report: Magnesium 2.1 1.6-2.6 mg/dL Reason For Referral No Information Medications Medication [...] Omeprazole 20 MG TAKE [address] CAPSU[address] [facility] EVERY DAY Orally Once a day Active [...] ed pt was given the vaccine at [facility]. Influenza High Dose IM Intramuscular 10/27/2019 Administer ed Pt was given the vaccine at [facility] SARS-COV-2 Moderna Unknown 04/10/2020 Administered SARS-COV-2 Moderna Unknown 05/08/2020 Administered SARS-COV-2 Moderna Unknown 01/01/2021 Administered Fluarix Quadrivalent Unknown 12/07/2020 Administered S SARS-COV-2 Moderna Unknown 06/13/2021 Administered [facility] [...] Problem Status W/U Status Risk Notes Problem 85010245 Anxiety (F41.9) Active confirmed Problem 500998558 Low back pain (M54.5) Active confirmed Problem 132678640 Body mass index (BMI) 30.0-30.9, adult (Z68.30) Active confirmed Problem 479061717 Gastroesophageal reflux disease without esophagitis (K21.9) Active confirmed Problem 42158458 Essential hypertension (I10) Active confirmed Problem 1307920 Prediabetes (R73.09) Active confirmed Problem 396092548 Non morbid obesi ty due to excess calories (E66.09) Active confirmed Problem 05130591 Heart murmur (R01.1) Active confirmed Problem 387087358 Other elevated w iraj blood cell (WBC) count (D72.828) Active confirmed Problem 96050172 Sciatica of left side (M54.32) Active confirmed Problem 477632656 Irritable bowel syndrome with constipation (K58.1) Active confirmed Problem Microcytic anemia (957979639) Microcytic anemia (D50.9) Active confirmed Problem Irritable bladder (073793573) Irritable bladder (N32.89) Active confirmed Vital Signs Blood pressure diastolic 60 mm Hg 12/01/2024 Height 68 in 12/01/2024 Blood pressure systolic 122 mm Hg 12/01/2024 Weight 182 lbs 12/01/2024 BMI 27.67 kg/m2 12/01/2024 Encounters Encounter Location Date Provider Diagnosis Red Sexton MD [address] [place] [address] Drive [address] [place] [id number] 03/29/2024 Red Sexton Blood tests for rout ine general physical examination Z00.00 ; Essential hypertension I10 ; Prediabetes R73.09 and Microcytic anemia D50.9 Red Sexton MD [address] [place] [address] Drive [address] [place] [id number] 04/04/2024 Red Sexton Essential hypertensi on I10 ; Encounter for general adult medical examination without abnormal findings Z00.00 ; Prediabetes R73.09 ; Arthritis of left foot M19.072 ; Gastroesophageal reflux disease without esophagitis K21.9 ; Irritable bowel syndrome with constipation K58.1 and Depression screening Z13.31 Red Sexton MD [address] [place] [address] Drive [address] [place] [id number] 10/03/2024 Red Sexton Prediabetes R73.09 ; Essential hypertension I10 and Irritable bladder N32.89 Red Sexton MD [address] [place] [id number] 12/01/2024 Red Sexton Essential hypertensi on I10 and Eustachian tube dysfunction H69.80 Red Sexton MD [address] [place] [id number] 03/03/2024 Red Sexton MD [address] [place] [id number] 03/31/2024 Red Sexton MD [address] [place] [id number] 05/26/2024 Red Sexton MD [address] [place] [id number] 07/25/2024 Red Sexton MD [address] [place] [address] [id number] 08/09/2024 Red Sexton MD [address] [place] [id number] 09/22/2024 Red Sexton MD [address] [place] [id number] 11/18/2024 Red Sexton MD [address] [place] [id number] 01/16/2025 Red Sexton Assessments Encounter Date Diagnosis [...] Electrocardiogram (EKG) 02/10/2019 CULTURE, URINE, ROUTINE 08/26/2012 UA ClnCatch+Micro w/rflx Cult 02/17/2025 Next Appt Details Provider Name:Red paul, 03/14/2025 07:30:00 AM, [address] [place] [address], [place] [address], [place], [phone], Provider Name:Red paul, 03/30/2025 08:00:00 AM, [address] [place] [address], [place] [address], [place], [place], [phone], Provider Name:Red paul, 04/06/2025 01:00:00 PM, [address] [place] [address], [place] [address], [place], [place], [phone], Insurance Providers Payer Name Payer Address Payer Phone Subscriber Number Group Number Insured Name Patient Relationship to Insured Coverage Start Date Coverage End Date [employer] [facility] [address] [place], [place] [phone] [phone] [id number] Nadege Ramos Self - patient is the insured Medical (General) History Medical History History ICD Code colonoscopy 12/2010 due in 10 years: col onoscopy 08/19/21, no more Surgical History Surgery Date(Month/Year) Lt Total Knee Arthroplasty by Dr. Ignacio lopez 05/2016 Rt total knee arthroplasty by Dr. Pierre n 06/2017
--- OUTSIDE RECORDS SUMMARY | 2025-02-21 22:04 | XMS_ITS | Patient Health Record ---
Author Organization [facility] Address [address] [place] [address] Care Team Providers Care Earthmoving Plant Operator Name Role Phone Red Sexton MD Primary Care Provider Mike Barros Unavailable [phone] Allergies Allergen (clinical drug ingredient) Drug/Non Drug [...] atherosclerosis of arteries of lower limbs (disorder) (20457053719190088 ) Atherosclerosis of cheesh-na artery of both lower extremities, with unspecified presence of clinical manifestation (I70.203) Active confirmed Problem Arthropathy associated with a neurological disorder (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) Active confirmed Vital Signs Blood pressure diastolic 70 mm Hg 12/13/2024 Height 5 ft 8 in in 12/13/2024 Blood pressure systolic 125 mm Hg 12/13/2024 Weight 180 lbs 12/13/2024 BMI 27.37 kg/m2 12/13/2024 Procedures Procedure Date Ordered Date Performed Result Body Sit e 65141-OIVJQBU NAIL, 6 OR MORE 05/10/2024 N/A 62654-UHJM SKIN LESIONS, 2 TO 4 05/10/2024 N/A 67684-DXAXGJG NAIL, 6 OR MORE 08/12/2024 N/A 09888-RTQA SKIN LESIONS, 2 TO 4 08/12/2024 N/A 66176-DTOUDGH NAIL, 6 OR MORE 12/13/2024 N/A 52777-OZAX SKIN LESIONS, 2 TO 4 12/13/2024 N/A Encounters Encounter Location Date Provider Diagnosis [address] [address] 05/10/2024 Mike Zepeda Atherosclerosis of cheesh-na artery of both lower extremities, with unspecified presence of clinical manifestation I70.203 ; Onychomycosis B35.1 ; Pain of toe of right foot M79.674 and Pain of toe of left foot M79.[address] [address] 08/12/2024 Mike Duane Atherosclerosis of cheesh-na artery of both lower extremities, with unspecified presence of clinical manifestation I70.203 ; Onychomycosis B35.1 ; Pain of toe of right foot M79.674 and Pain of toe of left foot M79.[address] [address] 12/13/2024 Mike Zepdea Atherosclerosis of cheesh-na artery of both lower extremities, with unspecified presence of clinical manifestation I70.203 ; Onychomycosis B35.1 ; Pain of toe of right foot M79.674 and Pain of toe of left foot M79.675 Assessments Encounter Date Diagnosis (ICD Code) Assessment Notes Treatment Notes Treatment Clinical Notes Section Notes 05/10/2024 Onychomycosis (ICD-10 - B35.1) 05/10/2024 Atherosclerosis of cheesh-na artery of both lower extremities, with unspecified presence of clinical manifestation (ICD-10 - I70.203) 08/12/2024 Onychomycosis (ICD-10 - B35.1) 08/12/2024 Atherosclerosis of cheesh-na artery of both lower extremities, with unspecified presence of clinical manifestation (ICD-10 - I70.203) 12/13/2024 Onychomycosis (ICD-10 - B35.1) 12/13/2024 Atherosclerosis of cheesh-na artery of both lower extremities, with unspecified [...] X ray : Foot, right 3V 08/20/2021 40213-YRPDMEI NAIL, 6 OR MORE 05/14/2023 40658-QUPFJNI NAIL, 6 OR MORE 11/25/2022 04906-DIMPDWX NAIL, 6 OR MORE 05/10/2024 43929-GXMORJY NAIL, 6 OR MORE 08/12/2024 94581-FEVVHHV NAIL, 6 OR MORE 12/13/2024 81351-Bpumemhu Plate 05/28/2021 22278- Debride <25 sq cm 05/28/2021 88155- Debride <25 sq cm 08/20/2021 10011- Debride <25 sq cm 09/04/2021 37868 I&D ABSCESS- SIMPLE,SINGLE 019 91105, J0702- INJECT TENDON ORIGIN/INSER T 12/23/2016 51436-LHNQ SKIN LESIONS, 2 TO 4 11/20/19 22 60741-KQBY SKIN LESIONS, 2 TO 4 02/05/20 94615-KBVH SKIN LESIONS, 2 TO 4 04/22/19 23 98692-JCMX SKIN LESIONS, 2 TO 4 07/23/19 23 39101-FJJT SKIN LESIONS, 2 TO 4 05/11/19 25 58009-BVIE SKIN LESIONS, 2 TO 4 11/26/19 23 21330-RWNA SKIN LESIONS, 2 TO 4 05/14/19 24 05152-HNQE SKIN LESIONS, 2 TO 4 09/15/19 24 27798-BWUO SKIN LESIONS, 2 TO 4 01/12/20 24 60782-HLRG SKIN LESIONS, 2 TO 4 12/14/19 25 43484-TYNE SKIN LESIONS, 2 TO 4 08/13/19 Next Appt Details Provider Name:Mike Lelo Zepeda , 04/11/2025 02:45:00 PM, [address] [facility] [facility], [place], [address], Insurance Providers Payer Name Payer Address Payer Phone Subscriber Number Group Number Insured Name Patient Relationship to Insured Coverage Start Date Coverage End Date [facility] 65 Medicare [address] [place] [address] [id number] Nadege Ramos Self - patient is the [...]
--- OUTSIDE RECORDS SUMMARY | 2025-02-21 22:05 | XMS_ITS | Patient Health Record ---
Author Organization [facility] Address [address] [place] [address] Care Team Providers Care Battalion Fire Chief Name Role Phone Red Sexton MD Primary Care Provider Kristian Lynch [phone] Allergies Allergen (clinical drug ingredient) Drug/Non Drug [...] Status Risk Notes Problem Iron deficiency anemia (49301963) Iron deficiency anemia (D50.9) Active confirmed Problem Benign neoplasm of stomach (85536278) Gastric polyps (K31.7) Active confirmed Problem Gastroesophageal reflux disease (702047563) GERD (gastroesophageal reflux disease) (K21.9) Active confirmed Problem Chronic constipation (047625889) Chronic constipation (K59.09) Active confirmed Problem Diverticulosis of colon (889442174) Diverticulosis of colon (K57.30) Active confirmed Problem Abnormal feces (053231096) Positive colorectal cancer screening using Cologuard test [...] Insured Coverage Start Date Coverage End Date [facility] [address] [place] [address] [id number] MARIA DEL CARMEN GILMORE Self - patient is the insured Medical (General) History Medical History History ICD Code HTN Paralyzed vocal cord Negative colonoscopy in 03/[address] Andrew Iron deficiency anemia Denies AK,DM,CVA,Lung disease,renal dise ase GERD-she thinks she had a ne gative upper endoscopy in the past with Dr. Andrew as well Arthritis Colonoscopy 08/2021--one small tubular ad enoma removed; no angiodysplasias EGD 08/2021-hiatal hernia and mild gastritis; duodenal biopsies negative for celiac disease. There was no Silveira's esophagus Surgical History Surgery Date(Month/Year) Partial right knee replacement 04/[address] [facility] [address] Cramer Lap band--deflated-Dr. Wolfe Bilateral knee replacements with Dr. Cezar wright-2016,2017 [facility]
--- OUTSIDE RECORDS SUMMARY | 2025-02-21 22:05 | XMS_ITS | Patient Health Record ---
Author Organization [facility] Address [address] [place] [address] Care Team Providers Care Locker Operator Name Role Phone Red Sexton MD Primary Care Provider Jana Griffin Unavailable [phone] Allergies Allergen (clinical drug ingredient) Drug/Non Drug [...] days with 4 refill. 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) Active confirmed Problem Benign essential hypertension (8251397) Essential hypertension, benign (401.1) Active confirmed Major Problem Esophageal reflux (535776100) Esophageal reflux (530.81) Active confirmed Major Problem Menopausal symptom (28591362) Symptomatic menopausal or female climacteric states (627.2) Active confirmed Major Problem Gynecological examination normal (957391282648006) Routine gynecological examination (V72.31) Active confirmed Major Problem Screening for malignant neoplasm of colon (956674144) Special screening for malignant neoplasms, colon (V76.51) Active confirmed Major Encounters Encounter Location Date Provider Diagnosis [address] [place] [address] 03/22/2024 Jana Mtz Plan Of Treatment Pending [...] End Date [employer]BS MEDICARE PPO [address] [place] [address] [id number] MARIA DEL CARMEN GILMORE Self - patient [...] History Surgery Date(Month/Year) Colonoscopy Lab Band Surgery [place] Teeth Lt Knee Replacement 2016 Rt Knee Replacement 06/2017 Rt Knee Replacement Repair 04/23/2021 Hospitalization History Reason Date(Month/Year) See Surgical Hx 4 Vaginal Deliveries
== END 2025-02-21 22:12 | disposition left against medical advice (07) ==
PROVIDERS: Physician Assistant; Emergency Provider Emergency Medicine; PCP Internal Medicine
DX: R19.7 Diarrhea, unspecified (principal); Z53.21 Procedure and treatment not carried out due to patient leaving prior to being seen by health care provider
CPT/HCPCS: 36415; 80053; 83735; 85025; 99281; 99283

== ENCOUNTER 2025-02-23 13:06 | Outpatient (REF) | payer MEDICARE, SELFPAY ==
--- OUTSIDE RECORDS SUMMARY | 2024-07-19 11:15 | XMS_ITS ---
Author Organization Red Sexton MD Address [address] [place] [phone] Care Team Providers Care Wheelchair Van Driver Name Role Phone Red Sexton Primary Care Provider [phone] REASON FOR VISIT DISCUSS MINOXIDIL Encounters Encounter Location Date Provider Diagnosis Red Sexton MD 10 [facility] [address] [place] [phone] 07/19/2024 Red Sexton Plan Of Treatment Next Appt Details Provider Name:Red paul, 03/14/2025 07:30:00 AM, [address] [place] [address], [address] [place] [address], [phone], Provider Name:Red paul, 03/30/2025 08:00:00 AM, [address] [place] [address], [address], [phone], Provider Name:Red paul, 04/06/2025 01:00:00 PM, [address] [place] [address], [address], [phone], Progress Notes * Nadege GILMORE MDOB: [birth year] (85 yo F)Acc No.[id number]:07/19/2024 Progress Notes Patient: Nadege HURLEY Provider: Sylvester Sexton MD :1940 A ge:84 Y S ex:Female Date:07/19/2024 Address:[address] [place], [place] [phone] Subjective: * Chief Complaints: * 1 . [...] 07/19/2024 Generated for Laura rivera/Mar/[place] on: 1 04/26/2024 05:06 PM EST
--- OUTSIDE RECORDS SUMMARY | 2024-07-25 05:06 | XMS_ITS ---
Author Organization Red Sexton MD Address [address] [place] [phone] Care Team Providers Care Roving Hand Name Role Phone Red Sexton Primary Care Provider REASON FOR VISIT refill Medications Medication SIG (Take, Route, Fr equency, Duration) Notes Start Date End Date Status traMADol HCl 50 MG 1 tablet as needed O rally can take every 12 hours for 30 days 07/25/2024 Active Encounters Encounter Location Date Provider Diagnosis Red Sexton MD [address] [facility] [address] [place] [phone] 07/25/2024 Red Sexton Plan Of Treatment Medication Medication Name Sig Start Date Stop Date Notes traMADol HCl 50 MG 1 tablet as needed O rally can take every 12 hours for 30 days 07/25/2024 Next Appt Details Provider Name:Red paul, 03/14/2025 07:30:00 AM, [address] [place] [address], [address] [place] [address], [phone], Provider Name:Red paul, 03/30/2025 08:00:00 AM, [address] [place] [address], [address], [phone], Provider Name:Red Ewing ier, 04/06/2025 01:00:00 PM, [address], [address], [place], [phone], Progress Notes * Nadege GILMORE MDOB: [birth year] (84 yo F)Acc No.[id number]:07/25/2024 Patient: Carlos Nadege UMANZOR :1940 A ge:84 Y S ex:Female Address:[address] [place] [phone] * Refills Refill traMADol HCl Tablet, 50 MG, Orally, 60, 1 tablet as needed, can take every 12 hours, 30 days, Refills=2 * true * Date: Generated for Laura rivera/Mar/[place] on: 04/26/2024 05:05 PM EST
--- OUTSIDE RECORDS SUMMARY | 2024-08-09 10:39 | XMS_ITS ---
Author Organization Red Sexton MD Address [address] [address] [phone] Care Team Providers Care Universal Worker Assisted Living Name Role Phone Red Sexton Primary Care Provider [phone] Medications Medication SIG (Take, Route, Frequency, Duration) Notes Start Date End Date Status Potassium Chloride ER 8 MEQ 2 capsules with food Orally Twice a day for 90 days Active Encounters Encounter Location Date Provider Diagnosis Red Sexton MD [address] [facility] [address] [place] [phone] 08/09/2024 Red Sexton Plan Of Treatment Medication Medication Name Sig Start Date Stop Date Notes Potassium Chloride ER 8 MEQ 2 capsules w ith food Orally Twice a day for 90 days Next Appt Details Provider Name:Red paul, 03/14/2025 07:30:00 AM, [address] [place] [address], [address], [phone], Provider Name:Red paul, 03/30/2025 08:00:00 AM, [address] [place] [address], [address], [phone], Provider Name:Red paul, 04/06/2025 01:00:00 PM, [address] [facility] [address], [address], [place], [place], [phone], Progress Notes * Nadege GILMORE MDOB: [birth year] (84 yo F)Acc No.[id number]:08/09/2024 Patient: Nadege HURLEY :1940 A ge:84 Y S ex:Female Address:[address] [place] [phone] * Refills Refill Potassium Chloride ER Tablet Extended Release, 8 MEQ, Orally, 360 Capsule, 2 capsules with food, Twice a day, 90 days, Refills=4 * true * Date: Generated for Laura rivera/Mar/[place] on: 04/26/2024 05:04 PM EST
--- OUTSIDE RECORDS SUMMARY | 2024-09-22 05:40 | XMS_ITS ---
Author Organization Red Sexton MD Address [address] [place] [phone] Care Team Providers Care Internet Webmaster Name Role Phone Red Sexton Primary Care Provider [phone] REASON FOR VISIT RF Trsamadol Medications Medication SIG (Take, Route, Fr equency, Duration) Notes Start Date End Date Status traMADol HCl 50 MG 1 tablet as needed O rally can take every 12 hours for 30 days 09/22/2024 Active Encounters Encounter Location Date Provider Diagnosis Red Sexton MD [address] [place] [phone] 09/22/2024 Red Sexton Plan Of Treatment Medication Medication Name Sig Start Date Stop Date Notes traMADol HCl 50 MG 1 tablet as needed O rally can take every 12 hours for 30 days 09/22/2024 Next Appt Details Provider Name:Red paul, 03/14/2025 07:30:00 AM, [address] [place] [address], [address] [place] [address], [phone], Provider Name:Red paul, 03/30/2025 08:00:00 AM, [address] [place] [address], [place] [address], [place], [place], [phone], Provider Name:Red Ewing humberto, 04/06/2025 01:00:00 PM, [address], [address], [place], [phone], Progress Notes * Nadege GILMORE MDOB: [birth year] (84 yo F)Acc No.[id number]:09/22/2024 Patient: Nadege HURLEY :1940 A ge:84 Y S ex:Female Address:[address] [place] [phone] * Refills Refill traMADol HCl Tablet, 50 MG, Orally, 60, 1 tablet as needed, can take every 12 hours, 30 days, Refills=2 * true * Date: Generated for Laura rivera/Mar/Chulaitting on: 04/26/2024 05:05 PM EST
--- OUTSIDE RECORDS SUMMARY | 2024-10-03 09:15 | XMS_ITS ---
Author Organization Red Sexton MD Address [address] [place], [place] [phone] Care Team Providers Care Scale Adjuster Name Role Phone Red Sexton Primary Care [...] W/U Status Risk Notes Problem Irritable bladder (380484341) Irritable bladder (N32.89) Active confirmed Vital Signs Blood pressure systolic 154 mm Hg 10/04/19 25 Blood pressure diastolic 70 mm Hg 025 Height 68 in 10/03/2024 Weight 182 lbs 10/03/2024 BMI 27.67 kg/m2 10/03/2024 weight is up 2 pounds since 04-04-24 Encounters Encounter Location Date Provider Diagnosis Red Sexton MD [address] [place] [address] [address] [place], [place] [phone] 10/03/2024 Red Sexton Prediabetes R73.09 ; Essential [...] Details Provider Name:Red paul, 03/14/2025 07:30:00 AM, [address] [place] [address], [address], [phone], Provider Name:Red paul, 03/30/2025 08:00:00 AM, [address] [place] [address], [address], [phone], Provider Name:Red paul, 04/06/2025 01:00:00 PM, [address] [place] [address], [place] [address], [place], [place], [phone], Progress Notes * Nadege GILMORE MDOB: [birth year] (84 yo F)Acc No.[id number]:10/03/2024 Progress Notes Patient: Carlos GOLDENREALai Nadege Og Provider: Sylvester Sexton MD :1940 A ge:84 Y S ex:Female Date:10/03/2024 Address:[address] [place], [place] [id number] Subjective: * Chief Complaints: * 6 MO [...] 2947 ASSAY, GLUCOSE, BLOOD QUANT, Modifiers: QW 53285 GLYCATED HEMOGLOBIN TEST, Modifiers: QW * * Sign off status: Completed true * Provider: Sylvester Sexton MD Date: 0 10/03/2024 Generated for Laura rivera/Mar/Jose Rransmitting on: 1 04/26/2024 05:06 PM EST History and Physical Notes * [...]
--- OUTSIDE RECORDS SUMMARY | 2024-11-18 05:40 | XMS_ITS ---
Author Organization Red Sexton MD Address [address] [place] [phone] Care Team Providers Care Internal Revenue Agent Name Role Phone Red Sexton Primary Care Provider REASON FOR VISIT rf Tramadol Medications Medication SIG (Take, Route, Fr equency, Duration) Notes Start Date End Date Status traMADol HCl 50 MG 1 tablet as needed O rally can take every 12 hours for 30 days 11/18/2024 Active Encounters Encounter Location Date Provider Diagnosis Red Sexton MD [address] [place] [phone] 11/18/2024 Red Sexton Plan Of Treatment Medication Medication Name Sig Start Date Stop Date Notes traMADol HCl 50 MG 1 tablet as needed O rally can take every 12 hours for 30 days 11/18/2024 Next Appt Details Provider Name:Red paul, 03/14/2025 07:30:00 AM, [address] [place] [address], [address], [phone], Provider Name:Red paul, 03/30/2025 08:00:00 AM, [address] [place] [address], [address], [phone], Provider Name:Red Ewing ier, 04/06/2025 01:00:00 PM, [address], [address], [place], [phone], Progress Notes * Nadege GILMORE MDOB: [birth year] (84 yo F)Acc No.[id number]:11/18/2024 Patient: Nadege HURLEY :1940 A ge:84 Y S ex:Female Address:[address] [place] [phone] * Refills Refill traMADol HCl Tablet, 50 MG, Orally, 60, 1 tablet as needed, can take every 12 hours, 30 days, Refills=2 * true * Date: Generated for Laura rivera/Mar/Chulaitting on: 04/26/2024 05:06 PM EST
--- OUTSIDE RECORDS SUMMARY | 2024-12-01 04:30 | XMS_ITS ---
Author Organization Red Sexton MD Address [address] [place], [place] [id number] Care Team Providers Care [employer] Team Member Name Role Phone Red Sexton Primary Care Provider Allergies Allergen (clinical drug ingredient) Drug/Non Drug Allergy documented on EMR Reaction Allergy Type Onset Date Status azithromycin Zithromax Unknown Drug Allergy Acti ve penicillin V Penicillin V Potassium swelling Drug Allergy Active sulfamethoxazole / trimethoprim Bactrim DS Unknown Drug Allergy Active REASON FOR VISIT BLOCKED EAR x 1 month Medications Medication SIG (Take, Route, Frequency, Duration) Notes Start Date End Date Status Aspirin 325 MG 1 tablet Orally Once a day Not-Taking Valsartan-hydroCHLOROthia zide 80-12.5 MG TAKE 1 TABLET BY MOUTH EVERY DAY Orally Once a day for 90 days Active Betamethasone Dipropionate 0.05 % 1 application to affected area Externally Once a day for 30 days 10/14/2012 Not-Taking Fioricet 50-300-40 MG 1 capsule as neede d Orally every 4 hrs Not-Taking Senna Lax 8.6 MG 2 tablets at bedtime as needed Orally Once a day Not-Taking Hyoscyamine Sulfate 0.125 MG TAKE 1 TABLET UNDER THE TONGUE EVERY 4 HOURS EVERY 12 HRS NEEDED ORALLY 30 DAYS Orally Three times a day Not-Taking LORazepam 0.5 MG 1 tablet as needed Orally Twice a day for 5 days 05/24/2021 Not-Taking traMADol HCl 50 MG 1 tablet as needed Orally can take every 12 hours for 30 days 11/18/2024 Active Hyoscyamine Sulfate ER 0.375 MG 1 tablet Orally every 12 hrs 06/11/2023 Active oxyBUTYnin Chloride 5 MG TAKE 1 TABLET ( 5MG) BY MOUTH ONCE A DAY FOR 90 DAYS. Orally Once a day for 90 days Active Fluticasone Propionate 50 MCG/ACT 1 spray in each nostril Nasally Twice a day for 30 days 12/01/2024 Active Potassium Chloride ER 8 MEQ 2 capsules with food Orally Twice a day for 90 days Active Omeprazole 20 MG TAKE 1 CAPSULE BY [facility] EVERY DAY Orally Once a day Active Tylenol 8 Hour Arthritis Pain 650 MG 2 tablets as needed Orally twice a day for 30 days 04/04/2024 Active Yuvafem 10 MCG 1 tablet Vaginal QOD Active Vital Signs Blood pressure systolic 122 mm Hg 12/02/19 25 Blood pressure diastolic 60 mm Hg 025 Height 68 in 12/01/2024 Weight 182 lbs 12/01/2024 BMI 27.67 kg/m2 12/01/2024 Encounters Encounter Location Date Provider Diagnosis Red Sexton MD [address] [place] [phone] 12/01/2024 Red Sexton Essential hypertension I10 and Eustachian tube dysfunction H69.80 Assessments Encounter Date Diagnosis (ICD Code) Assessment Notes Treatment Notes Treatment Clinical Notes Section Notes 12/01/2024 Essential hypertension (ICD-10 - I10) stable, will continue current regiment 12/01/2024 Eustachian tube dysfunction (ICD-10 - H69.80) patient verbalized understanding of medication and directions for use, will contiue to monitor Plan Of Treatment Medication Medication Name Sig Start Date Stop Date Notes Valsartan-hydroCHLOROthiazid e 80-12.5 MG TAKE 1 TABLET BY MOUTH EVERY DAY Orally Once a day for 90 days Fluticasone Propionate 50 MCG/ACT 1 spray in each nostril Nasally Twice a day for 30 days 12/01/2024 Treatment Notes Assessment Notes Essential hypertension stable, will cont inue current regiment Eustachian tube dysfunction patient verb alized understanding of medication and directions for use, will contiue to monitor Next Appt Details Provider Name:Red Ewing ier, 03/14/2025 07:30:00 AM, [address], [address], [place], [phone], Provider Name:Red Ewing ier, 03/30/2025 08:00:00 AM, [address] [place] [address], [address], [place], [place], [phone], Provider Name:Red Ewing ier, 04/06/2025 01:00:00 PM, [address] [facility], [address], [place], [phone], Progress Notes * Nadege GILMORE MDOB: [birth year] (84 yo F)Acc No.[id number]:12/01/2024 Progress Notes Patient: Carlos NOÉ Nadege Og Provider: Sylvester Sexton MD :1940 A ge:84 Y S ex:Female Date:12/01/2024 Address:[address] [place] [phone] Subjective: * Chief Complaints: * B LOCKED EAR x 1 month * HPI: S ymptom(s): patient is a 84 yo female with complaint of blocked left ear. * ROS: G eneral/Constitutional: Denies C hills. D enies F atigue. D enies F ever. D enies H eadache. E NT: Admits B locked ear(s), c /o left blocked ear x 1 month. D enies S ore throat. R espiratory: Denies C ough. D enies S hortness of breath at rest. D enies S hortness of breath with exertion. G astrointestinal: Denies D iarrhea. D enies N ausea. * Medical History: * Surgical History: * Hospitalization/Major Diagno stic Procedure: * Medications: T akingYuvafem 10 MCG Tablet 1 tablet Vaginal QOD Tylenol 8 Hour Arthritis Pain 650 MG Tablet Extended Release 2 tablets as needed Orally twice a day Omeprazole 20 MG Capsule Delayed Release TAKE 1 CAPSULE BY MOUTH EVERY DAY Orally Once a day Potassium Chloride ER 8 MEQ Tablet Extended Release 2 capsules with food Orally Twice a day oxyBUTYnin Chloride 5 MG Tablet TAKE 1 TABLET (5MG) BY MOUTH ONCE A DAY FOR 90 DAYS. Orally Once a day Hyoscyamine Sulfate ER 0.375 MG Tablet Extended Release 12 Hour 1 tablet Orally every 12 hrs Valsartan-hydroCHLOROthiazide 80-12.5 MG Tablet TAKE 1 TABLET BY MOUTH EVERY DAY traMADol HCl 50 MG Tablet 1 tablet as needed Orally can take every 12 hours Taking Yuvafem 10 MCG Tablet 1 tablet Vaginal QOD Taking Tylenol 8 Hour Arthritis Pain 650 MG Tablet Extended Release 2 tablets as needed Orally twice a day Taking Omeprazole 20 MG Capsule Delayed Release TAKE 1 CAPSULE BY MOUTH EVERY DAY Orally Once a day Taking Potassium Chloride ER 8 MEQ Tablet Extended Release 2 capsules with food Orally Twice a day Taking oxyBUTYnin Chloride 5 MG Tablet TAKE 1 TABLET (5MG) BY MOUTH ONCE A DAY FOR 90 DAYS. Orally Once a day Taking Hyoscyamine Sulfate ER 0.375 MG Tablet Extended Release 12 Hour 1 tablet Orally every 12 hrs Taking Valsartan-hydroCHLOROthiazide 80-12.5 MG Tablet TAKE 1 TABLET BY MOUTH EVERY DAY Taking traMADol HCl 50 MG Tablet 1 [...] Vitals: H t: 68, Wt: 182, BMI:27.67, BP:122/60, Wt-k.55. * Examination: G eneral Examination: GENERAL APPEARANCE: w ell developed, well nourished. EARS: l eft ear is the thing bothring her and is normal.? Assessment: * Assessment: 1. E ssential hypertension - I10 (Primary) 2 . E ustachian tube dysfunction - H69.80 Plan: * Treatment: 2. E ustachian tube dysfunction Start Fluticasone Propionate Suspension, 50 MCG/ACT, 1 spray in each nostril, Nasally, Twice a day, 30 days, 1, Refills 3. Notes: patient verbalized understanding of medication and directions for use, will contiue to monitor * Procedure Codes: * * Sign off status: Completed true * Provider: Sylvester Sexton MD Date: 0 12/01/2024 Generated for Laura rivear/Mar/eTgarysmitting on: 1 04/26/2024 05:05 PM EST History and Physical Notes * HPI (History of Present Illness) Category Sub-Category Detail Notes Category Not es Symptom(s) patient is a 84 yo female with complaint of blocked left ear Examination Category Sub-Category Detail Notes Category Not es General Examination GENERAL APPEARANCE: well developed , well nourished EARS: left ear is the thin g bothring her and is normal
--- OUTSIDE RECORDS SUMMARY | 2025-01-16 09:56 | XMS_ITS ---
Author Organization Red Sexton MD Address [address] [place] [phone] Care Team Providers Care Verifier Operator Name Role Phone Red Sexton Primary Care Provider [phone] REASON FOR VISIT REFILL TRAMADOL Medications Medication SIG (Take, Route, Fr equency, Duration) Notes Start Date End Date Status traMADol HCl 50 MG 1 tablet as needed O rally can take every 12 hours for 30 days 01/16/2025 Active Encounters Encounter Location Date Provider Diagnosis Red Sexton MD [address] [facility] [address] [place] [phone] 01/16/2025 Red Sexton Plan Of Treatment Medication Medication Name Sig Start Date Stop Date Notes traMADol HCl 50 MG 1 tablet as needed O rally can take every 12 hours for 30 days 01/16/2025 Next Appt Details Provider Name:Red paul, 03/14/2025 07:30:00 AM, [address] [place] [address], [address], [phone], Provider Name:Red paul, 03/30/2025 08:00:00 AM, [address] [place] [address], [address], [phone], Provider Name:Red Ewing ier, 04/06/2025 01:00:00 PM, [address], [address], [place], [phone], Progress Notes * Nadege GILMORE MDOB: [birth year] (85 yo F)Acc No.[id number]:01/16/2025 Patient: Nadege HURLEY :1940 A ge:85 Y S ex:Female Address:[address] [place] [phone] * Refills Refill traMADol HCl Tablet, 50 MG, Orally, 60, 1 tablet as needed, can take every 12 hours, 30 days, Refills=2 * true * Date: Generated for Laura rivera/Mar/Chucksmitting on: 04/26/2024 05:06 PM EST
--- OUTSIDE RECORDS SUMMARY | 2025-02-23 04:00 | XMS_ITS ---
Author Organization Red Sexton MD Address [address] [place] [phone] Care Team Providers Care Physician Practice Consultant Name Role Phone Red Sexton Primary Care Provider [phone] Results Component Value Reference Range Notes UA ClnCatch+Micro w/rflx Cul t (Not yet reviewed by provider) Interpretation: Performing Lab:[facility], [address] [place] [phone] Notes/Report: Urine, Clean Catch Color Urine Dark Yellow Appearance Urine Cloudy PH 6.5 5.0-9.0 Glucose Urine UA Negative Negative mg/dL Urine Blood Small (1+) Negative Specific [place] - Urine 1.015 1.005-1.025 Urine Protein Trace Neg-Trace mg/dL Urine Ketones Negative Negative mg/dL Nitrite Urine Positive Negative Leukocyte Esterase Urine Small (1+) Negative RBC Urine 6-10 0-2 /HPF WBC Urine 0-5 0-5 /HPF Squamous Epithelial Cell Urine 6-10 0-2 /HPF Other Crystals Urine Present Amorpho us urates noted Bacteria Urine 2+ None Seen Hyaline Casts Urine 0-2 0-2 /LPF REASON FOR VISIT UTI Encounters Encounter Location Date Provider Diagnosis Red Sexton MD [address] [place] [phone] 02/23/2025 Red Sexton UTI (urinary tract infection) N39.0 Assessments Encounter Date Diagnosis (ICD Code) Assessment Notes Treatment Notes Treatment Clinical Notes Section Notes 02/23/2025 UTI (urinary tract infection) (ICD-10 - N39.0) Plan Of Treatment Pending Test Test Name Order Date UA ClnCatch+Micro w/rflx Cult 02/23/2025 Next Appt Details Provider Name:Red Ewing ier, 03/14/2025 07:30:00 AM, [address] [place] [address], [address], [phone], Provider Name:Red Ewing ier, 03/30/2025 08:00:00 AM, [address] [place] [address], [address], [phone], Provider Name:Red Ewing ier, 04/06/2025 01:00:00 PM, [address] [place] [address], [phone], Progress Notes * Nadege GILMORE MDOB: [birth year] (85 yo F)Acc No.[id number]:02/23/2025 Progress Note Patient: Nadege HURLEY Provider: Sylvester Sexton MD :1940 A ge:85 Y S ex:Female Date:02/23/2025 Address:[address] [place], [place] [phone] Subjective: * Chief Complaints: * 1 . UTI. * Medical History: Objective: * Vitals: Assessment: * Assessment: 1. U TI (urinary tract infection) - N39.0 Plan: * Treatment: * * The named appointment provid er may or may not be the originator of this progress note, and it is not deemed complete until electronically signed by the appointment provider. Sign off status: Pending * Provider: Sylvester Sexton MD Date: 04/26/2024 Generated for Laura rivera/Mar/eTransmitting on: 04/26/2024 05:06 PM EST
--- OUTSIDE RECORDS SUMMARY | 2025-02-23 10:52 | XMS_ITS ---
Author Organization Red Sexton MD Address [address] [place] [phone] Care Team Providers Care Shape Hand Name Role Phone Red Sexton Primary Care Provider [phone] REASON FOR VISIT check U/A Encounters Encounter Location Date Provider Diagnosis Red Sexton MD [facility] [address] [place] [phone] 02/23/2025 Red Sexton Plan Of Treatment Next Appt Details Provider Name:Red paul, 03/14/2025 07:30:00 AM, [address] [place] [address], [address] [place] [address], [phone], Provider Name:Red paul, 03/30/2025 08:00:00 AM, [address] [place] [address], [address], [phone], Provider Name:Red paul, 04/06/2025 01:00:00 PM, [address] [place] [address], [address], [phone], Progress Notes * Nadege GILMORE MDOB: [birth year] (85 yo F)Acc No.[id number]:02/23/2025 Patient: Nadege HURLEY :1940 A ge:85 Y S ex:Female Address:[address] [place] [phone] * * Date:
[2025-02-23 13:20] LABS: Appearance Urine Cloudy; Glucose Urine UA Negative (Negative); PH 6.5 (5.0-9.0); Specific Gravity - Urine 1.015 (1.005-1.025); UMIC TRIGGER UACC YES
[2025-02-23 13:33] LABS: Other Crystals Urine Present; UACC Culture Trigger YES
--- OUTSIDE RECORDS SUMMARY | 2025-02-23 17:05 | XMS_ITS | Clinical Summary ---
Author Organization [facility] Address [address] [place] [phone] Care Team Providers Care Medic Technician Name Role Phone Red Sexton MD Primary [...] age to complete this topic Care Teams Medic Technician Relationship Specialty Start Date End Date Red Sexton MD PCP - General Internal Medicine 08/12/17
--- OUTSIDE RECORDS SUMMARY | 2025-02-23 17:05 | XMS_ITS | Patient Health Record ---
Author Organization Red Sexton MD Address [address] [place], [place] [phone] Care Team Providers Care Lump Machine Operator Name Role Phone Red Sexton Primary Care Provider [phone] Allergies Allergen (clinical drug ingredient) Drug/Non Drug [...] ff Reviewed date:03/29/2024 01:21:01 PM Interpretation: Performing Lab:[facility], [address] [place] [phone] Notes/Report: White Blood Count 5.0 4.8-10.8 X10*3/uL [...] NRBC Abs Auto 0.000 0.0-0.012 X10*3/uL Comprehensive [place]. Panel Fa st Reviewed date:03/29/2024 01:20:27 PM Interpretation: Performing Lab:[facility], [address] [place] [phone] Notes/Report: Sodium 132 135-145 mmol/L Potassium 4.0 [...] Panel Reviewed date:03/29/2024 12:35:19 PM Interpretation: Performing Lab:[facility], [address] [place] [phone] Notes/Report: Triglycerides 105 <150 mg/dL Desirable Triglyceride: [...] Random Reviewed date:03/29/2024 12:40:06 PM Interpretation: Performing Lab:[facility], [address] [place] [phone] Notes/Report: Creatinine Urine 43.63 Microalbumin Urine < 5.0 Microalbum/Creatinine Ratio Ur TNP <30 ug/mg cr Unable to calculate albumin/creatinine ratio due to low microalbumin or creatinine result. Hemoglobin A1c Reviewed date:03/29/2024 12:35:34 PM Interpretation: Performing Lab:[facility], [address] [place] [phone] Notes/Report: Hemoglobin A1c % 5.0 <6.0 % [...] average glucose, using the formula of the T6Y-Nctqnks Average Glucose study (ADAG), Diabetes Care, Vol.31,#8, Oct. 2007 UA ClnCatch+Micro w/rflx Cul t Reviewed date:03/29/2024 04:36:56 PM Interpretation: Performing Lab:[facility], [address] [place] [phone] Notes/Report: Urine, Clean Catch Color Urine Yellow Appearance Urine Clear PH 7.0 5.0-9.0 Glucose Urine UA Negative Negative mg/dL Urine Blood Negative Negative Specific [place] - Urine 1.015 1.005-1.025 Urine Protein Negative Neg-Trace mg/dL Urine Ketones Negative Negative mg/dL Nitrite Urine Negative Negative Leukocyte Esterase Urine Large (3+) Negative RBC Urine 0-2 0-2 /HPF WBC Urine 21-50 0-5 /HPF Squamous Epithelial Cell Urine 6-10 0-2 /HPF Bacteria Urine None Seen None Seen Hyaline Casts Urine 0-2 0-2 /LPF UA ClnCatch+Micro w/rflx Cul t (Not yet reviewed by provider) Interpretation: Performing Lab:[facility], [address] [place] [phone] Notes/Report: Urine, Clean Catch Color Urine Dark Yellow Appearance Urine Cloudy PH 6.5 5.0-9.0 Glucose Urine UA Negative Negative mg/dL Urine Blood Small (1+) Negative Specific [place] - Urine 1.015 1.005-1.025 Urine Protein Trace [...] Culture Reviewed date:03/31/2024 05:51:34 PM Interpretation: Performing Lab:[facility], [address] [place] [phone] Notes/Report: Urine Culture Report Result Urine Culture 50,000 to 100,000 cfu/ml Urine Culture Mixed bacterial yfn a characteristic of Urine Culture urogenital contamination. MM tomosynthesis screening B I Reviewed date:06/12/2024 10:00:51 AM Interpretation: Performing Lab: Notes/Report: [facility] [address] [place] [address] Mammography Report Signed Patient: Nadege Ramos MR#: [id number] : 1940 Acct:[id number] Age/Sex: 84 / F ADM Date: 06/03/24 Loc: HO.MAMMO Attending Dr: Red Sexton MD Ordering Physician: Red Sexton MD Results: 1Ne gative Date of Service: 06/03/24 Follow Up: 1 Year From [facility] ina Mammogram Procedure(s): MM tomosynthesis screening BI Accession Number(s): [id number] cc: Red Sexton MD EXAMINATION: MM SCREENING [...] 06/11/24 1440 DD/ 0945 TD/TT: 06/03/24 1010 Broadcast Meteorologist: [facility] [address] [place] [address] Mammography Report Signed Patient: Milton Ramos MR#: [id number] : 1940 Acct:[id number] Age/Sex: 84 / F ADM Date: 06/03/24 Loc: HO.MAMMO Attending Dr: Red Sexton MD Ordering Physician: Red Sexton MD Results: 1Ne gative Date of Service: 06/03/24 Follow Up: 1 Year From Orig ina Mammogram Procedure(s): MM tomosynthesis screening BI Accession Number(s): [id number] cc: Red Sexton MD EXAMINATION: MM SCREENING [...] 06/11/24 1440 DD/ 0945 TD/TT: 06/03/24 1010 Broadcast Meteorologist: SEAN Hudson+David w/rflx Cul t (Not yet reviewed by provider) Interpretation:03-14-2025 Performing Lab:[facility], [address] [place] [phone] Notes/Report: [id number] 2040 Urine, Clean Catch Color Urine Yellow Appearance Urine Clear PH 7.5 5.0-9.0 Glucose Urine UA Negative Negative mg/dL Urine Blood Small (1+) Negative Specific [place] - Urine 1.010 1.005-1.025 Urine Protein Negative [...] ff Reviewed date:02/17/2025 05:50:28 PM Interpretation: Performing Lab:[facility], [address] [place] [phone] Notes/Report: White Blood Count 14.4 4.8-10.8 X10*3/uL [...] Panel Reviewed date:02/17/2025 05:51:41 PM Interpretation: Performing Lab:[address] [phone] Notes/Report: Sodium 128 135-145 mmol/L Potassium 4.7 [...] Acid Reviewed date:02/17/2025 05:27:28 PM Interpretation: Performing Lab:[address] [phone] Notes/Report: Lactic Acid 1.2 0.5-2.0 mmol/L Magnesium Reviewed date:02/17/2025 05:39:51 PM Interpretation: Performing Lab:[address] [phone] Notes/Report: Magnesium 2.6 1.6-2.6 mg/dL SLIDE REVIEW Reviewed date:02/17/2025 05:29:25 PM Interpretation: Performing Lab:[facility], [address] [place] [phone] Notes/Report: SLIDE REVIEW VERIFIED Blood Culture (First) Reviewed date:02/23/2025 12:24:33 PM Interpretation: Performing Lab:[facility], [address] [place] [phone] Notes/Report: Blood Culture (First) No growth after 5 days. Blood Culture (Second) Reviewed date:02/23/2025 12:22:21 PM Interpretation: Performing Lab:[facility], [address] [place] [phone] Notes/Report: Blood Culture (Second) No growth after [address] abdomen pelvis wo con Reviewed date:02/17/2025 05:29:06 PM Interpretation: Performing Lab: Notes/Report: [address] [address] [address] Scan Report Signed Patient: Nadege Ramos MR#: [id number] : 1940 Acct:[id number] Age/Sex: 85 / F ADM Date: 02/17/25 Loc: .ED Attending Dr: Ordering Physician: Fredi Amaya Date of Service: 02/17/25 Procedure(s): CT abdomen pelvis wo IV con Accession Number(s): [id number] cc: Red Sexton MD; Fredi Amaya Report Number: [id number]: Total DLP = 633.00 mGy-cm Reason for [...] by: Manish Levin MD 02/17/2025 03:14 PM [facility] Dictated By: Manish Levin MD Signed By: <Electronically signed by Manish Levin MD in OV> 02/17/25 1514 DD/ 1454 TD/TT: 02/17/25 1501 Broadcast Meteorologist: [address] [address] [address] Scan Report Signed Patient: Milton Ramos MR#: [id number] : 1940 Acct:[id number] Age/Sex: 85 / F ADM Date: 02/17/25 Loc: HO.ED Attending Dr: Ordering Physician: Fredi Amaya Date of Service: 02/17/25 Procedure(s): CT abd omen pelvis wo IV con Accession Number(s): [id number] cc: Red Sexton MD; Fredi Amaya Report Number: [id number]: Total DLP = 633.00 mGy-cm Reason for [...] by: Manish Levin MD 02/17/2025 03:14 PM [facility] Dictated By: Manish Levin MD Signed By: <Electronically signed by Manish Levin MD in OV> 02/17/25 1514 DD/ 1454 TD/TT: 02/17/25 1501 Broadcast Meteorologist: Complete Blood Count Auto Di ff Reviewed date:02/21/2025 05:07:56 PM Interpretation: Performing Lab:[facility], [address] [place] [phone] Notes/Report: White Blood Count 8.8 4.8-10.8 X10*3/uL [...] Panel Reviewed date:02/21/2025 06:17:51 PM Interpretation: Performing Lab:[address] [phone] Notes/Report: Sodium 127 135-145 mmol/L Potassium 3.9 [...] Magnesium Reviewed date:02/21/2025 06:17:26 PM Interpretation: Performing Lab:[address] [address] Notes/Report: Magnesium 2.1 1.6-2.6 mg/dL Reason For [...] Omeprazole 20 MG TAKE [address] [facility] EVERY DAY Orally Once a day [...] ed pt was given the vaccine at [facility]. Influenza High Dose IM Intramuscular 10/27/2019 Administer ed Pt was given the vaccine at [facility] [place] SARS-COV-2 Moderna Unknown 04/10/2020 Administered SARS-COV-2 Moderna [...] Problem Status W/U Status Risk Notes Problem 08603440 Anxiety (F41.9) Active confirmed Problem 429066248 Low back pain (M54.5) Active confirmed Problem 959782342 Body mass index (BMI) 30.0-30.9, adult (Z68.30) Active confirmed Problem 070829601 Gastroesophageal reflux disease without esophagitis (K21.9) Active confirmed Problem 23908296 Essential hypertension (I10) Active confirmed Problem 3320115 Prediabetes (R73.09) Active confirmed Problem 240599444 Non morbid obesi ty due to excess calories (E66.09) Active confirmed Problem 57923359 Heart murmur (R01.1) Active confirmed Problem 264054678 Other elevated w iraj blood cell (WBC) count (D72.828) Active confirmed Problem 24764152 Sciatica of left side (M54.32) Active confirmed Problem 046229258 Irritable bowel syndrome with constipation (K58.1) Active confirmed Problem Microcytic anemia (663986851) Microcytic anemia (D50.9) Active confirmed Problem Irritable bladder (676474862) Irritable bladder (N32.89) Active confirmed Vital Signs Blood pressure diastolic 60 mm Hg 12/01/2024 Height 68 in 12/01/2024 Blood pressure systolic 122 mm Hg 12/01/2024 Weight 182 lbs 12/01/2024 BMI 27.67 kg/m2 12/01/2024 Encounters Encounter Location Date Provider Diagnosis Red Sexton MD [address] [place] [id number] 03/29/2024 Red Sexton Blood tests for rout ine general physical examination Z00.00 ; Essential hypertension I10 ; Prediabetes R73.09 and Microcytic anemia D50.9 Red Sexton MD [address] [id number] 02/23/2025 Red Sexton UTI (urinary tract infection) N39.0 Red Sexton MD [address] [place] [id number] 04/04/2024 Red Sexton Essential hypertensi on I10 ; Encounter for general adult medical examination without abnormal findings Z00.00 ; Prediabetes R73.09 ; Arthritis of left foot M19.072 ; Gastroesophageal reflux disease without esophagitis K21.9 ; Irritable bowel syndrome with constipation K58.1 and Depression screening Z13.31 Red Sexton MD [address] [place] [id number] 10/03/2024 Rde Sexton Prediabetes R73.09 ; Essential hypertension I10 and Irritable bladder N32.89 Red Sexton MD [address] [place] [id number] 12/01/2024 Red Sexton Essential hypertensi on I10 and Eustachian tube dysfunction H69.80 Red Sexton MD [address] [place] [id number] 02/23/2025 Red Sexton MD [address] [id number] 03/03/2024 Red Sexton MD [address] [place] [id number] 03/31/2024 Red Sexton MD [address] [place] [id number] 05/26/2024 Red Sexton MD [address] [place] [id number] 07/25/2024 Red Sexton MD [address] [place] [id number] 08/09/2024 Red Sexton MD [address] [place] [id number] 09/22/2024 Red Sexton MD [address] [place] [id number] 11/18/2024 Red Sexton MD [address] [place] [id number] 01/16/2025 Red Sexton Assessments Encounter Date Diagnosis (ICD Code) Assessment Notes Treatment Notes Treatment Clinical Notes Section Notes 03/29/2024 Blood tests for routine general physical examination (ICD-10 - Z00.00) 03/29/2024 Essential hypertension (ICD-10 - I10) 02/23/2025 UTI (urinary tract infection) (ICD-10 - N39.0) 04/04/2024 Essential hypertension (ICD-10 - I10) doing [...] Test Test Name Order Date Electrocardiogram (EKG) 02/10/2019 Electrocardiogram (EKG) 12/27/2015 Electrocardiogram (EKG) 01/15/2017 CULTURE, URINE, ROUTINE 08/26/2012 UA ClnCatch+Micro w/rflx Cult 02/17/2025 UA ClnCatch+Micro w/rflx Cult 02/23/2025 Next Appt Details Provider Name:Red paul, 03/14/2025 07:30:00 AM, [address] [place] [address], [address], [phone], Provider Name:Red valdezr, 03/30/2025 08:00:00 AM, [address] [place] [address], [address], [phone], Provider Name:Red valdezr, 04/06/2025 01:00:00 PM, [address] [place] [address], [address], [phone], Insurance Providers Payer Name Payer Address Payer Phone Subscriber Number Group Number Insured Name Patient Relationship to Insured Coverage Start Date Coverage End Date [employer] [address] [place], [place] [id number] Nadege Ramos Self - patient is the insured Medical (General) History Medical History History ICD Code colonoscopy 12/2010 due in 10 years: col onoscopy 08/19/21, no more Surgical History Surgery Date(Month/Year) Lt Total Knee Arthroplasty by Dr. Pierre n 05/2016 Rt total knee arthroplasty by Dr. Pierre n 06/2017
--- OUTSIDE RECORDS SUMMARY | 2025-02-23 17:06 | XMS_ITS | Patient Health Record ---
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's joint of left foot (M14.672) Active confirmed Vital Signs Blood pressure diastolic 70 mm Hg 12/13/2024 Height 5 ft 8 in in 12/13/2024 Blood pressure systolic 125 mm Hg 12/13/2024 Weight 180 lbs 12/13/2024 BMI 27.37 kg/m2 12/13/2024 Procedures Procedure Date Ordered Date Performed Result Body Sit e 83759-JXXINTU NAIL, 6 OR MORE 05/10/2024 N/A 96658-UPYW SKIN LESIONS, 2 TO 4 05/10/2024 N/A 66801-IRLQAVP NAIL, 6 OR MORE 08/12/2024 N/A 26694-UETJ SKIN LESIONS, 2 TO 4 08/12/2024 N/A 74366-LYSLZPN NAIL, 6 OR MORE 12/13/2024 N/A 76387-GBZH SKIN LESIONS, 2 TO 4 12/13/2024 N/A Encounters Encounter Location Date Provider Diagnosis [address] [address] 05/10/2024 Mike Zepeda Atherosclerosis of [place] artery of both lower extremities, with unspecified presence of clinical manifestation I70.203 ; Onychomycosis B35.1 ; Pain of toe of right foot M79.674 and Pain of toe of left foot M79.[address] [address] 08/12/2024 Mike Duane Atherosclerosis of [place] artery of both lower extremities, with unspecified presence of clinical manifestation I70.203 ; Onychomycosis B35.1 ; Pain of toe of right foot M79.674 and Pain of toe of left foot M79.[address] [address] 12/13/2024 Mike Zepeda Atherosclerosis of [place] artery of both lower extremities, with unspecified presence of clinical manifestation I70.203 ; Onychomycosis B35.1 ; Pain of toe of right foot M79.674 and Pain of toe of left foot M79.675 Assessments Encounter Date Diagnosis (ICD Code) Assessment Notes Treatment Notes Treatment Clinical Notes Section Notes 05/10/2024 Onychomycosis (ICD-10 - B35.1) 05/10/2024 Atherosclerosis of [place] artery of both lower extremities, with unspecified presence of clinical manifestation (ICD-10 - I70.203) 08/12/2024 Onychomycosis (ICD-10 - B35.1) 08/12/2024 Atherosclerosis of [place] artery of both lower extremities, with unspecified presence of clinical manifestation (ICD-10 - I70.203) 12/13/2024 Onychomycosis (ICD-10 - B35.1) 12/13/2024 Atherosclerosis of [place] artery of both lower extremities, with unspecified [...] X ray : Foot, right 3V 08/20/2021 39446-CIIASRJ NAIL, 6 OR MORE 05/14/2023 93458-ESFRNJR NAIL, 6 OR MORE 11/25/2022 37349-PNAGKWV NAIL, 6 OR MORE 05/10/2024 92480-BHPEVTG NAIL, 6 OR MORE 08/12/2024 69376-CGARGRI NAIL, 6 OR MORE 12/13/2024 81295-Joltpwyk Plate 05/28/2021 72412- Debride <25 sq cm 05/28/2021 73046- Debride <25 sq cm 08/20/2021 12748- Debride <25 sq cm 09/04/2021 33100 I&D ABSCESS- SIMPLE,SINGLE 019 74605, J0702- INJECT TENDON ORIGIN/INSER T 12/23/2016 02166-HPEO SKIN LESIONS, 2 TO 4 11/20/19 22 69343-WUJY SKIN LESIONS, 2 TO 4 02/05/20 60501-LKXS SKIN LESIONS, 2 TO 4 04/22/19 23 18751-YBDK SKIN LESIONS, 2 TO 4 07/23/19 23 01431-KYHP SKIN LESIONS, 2 TO 4 05/11/19 25 85481-UDTO SKIN LESIONS, 2 TO 4 11/26/19 23 45441-ZDLB SKIN LESIONS, 2 TO 4 05/14/19 24 04834-DJRT SKIN LESIONS, 2 TO 4 09/15/19 24 05049-RXML SKIN LESIONS, 2 TO 4 01/12/20 24 99402-DGZM SKIN LESIONS, 2 TO 4 12/14/19 25 43359-LVTB SKIN LESIONS, 2 TO 4 08/13/19 Next Appt Details Provider Name:Mike Lelo Zepeda , 04/11/2025 02:45:00 PM, [address] [facility] [place], [place], [address], Insurance Providers Payer Name Payer Address Payer Phone Subscriber Number Group Number Insured Name Patient Relationship to Insured Coverage Start Date Coverage End Date [facility] 65 Medicare [address]erred [address] [place] [address] [id number] Nadege Ramos Self - patient is the [...]
--- OUTSIDE RECORDS SUMMARY | 2025-02-23 17:06 | XMS_ITS | Patient Health Record ---
Author Organization [facility] Address [address] [place] [address] Care Team Providers Care Neon Molder Name Role Phone Red Sexton MD Primary Care Provider Kristian Lynch [phone] Allergies Allergen (clinical drug ingredient) Drug/Non Drug [...] Status Risk Notes Problem Iron deficiency anemia (76140580) Iron deficiency anemia (D50.9) Active confirmed Problem Benign neoplasm of stomach (52085225) Gastric polyps (K31.7) Active confirmed Problem Gastroesophageal reflux disease (815951159) GERD (gastroesophageal reflux disease) (K21.9) Active confirmed Problem Chronic constipation (096361102) Chronic constipation (K59.09) Active confirmed Problem Diverticulosis of colon (107566232) Diverticulosis of colon (K57.30) Active confirmed Problem Abnormal feces (356586149) Positive colorectal cancer screening using Cologuard test [...] Insured Coverage Start Date Coverage End Date [facility] [address] [place] [address] [id number] MARIA DEL CARMEN GILMORE Self - patient is the insured Medical (General) History Medical History History ICD Code HTN Paralyzed vocal cord Negative colonoscopy in 03/[address] Andrew Iron deficiency anemia Denies ID,DM,CVA,Lung disease,renal dise ase GERD-she thinks she had a ne gative upper endoscopy in the past with Dr. Andrew as well Arthritis Colonoscopy 08/2021--one small tubular ad enoma removed; no angiodysplasias EGD 08/2021-hiatal hernia and mild gastritis; duodenal biopsies negative for celiac disease. There was no Silveira's esophagus Surgical History Surgery Date(Month/Year) Partial right knee replacement 04/[address] [facility] [address] Cramer Lap band--deflated-Dr. Wolfe Bilateral knee replacements with Dr. Cezar wright-2016,2017 [facility]
--- OUTSIDE RECORDS SUMMARY | 2025-02-23 17:07 | XMS_ITS | Patient Health Record ---
Author Organization [facility] Address [address] [place] [address] Care Team Providers Care Home Appraiser Name Role Phone Red Sexton MD Primary Care Provider Jana Griffin Unavailable [phone] Allergies Allergen (clinical drug ingredient) Drug/Non Drug [...] Status Risk Notes Problem Postmenopausal atrophic vaginitis (99597428) Postmenopausal atrophic vaginitis (N95.2) Active confirmed Problem Benign essential hypertension (0305339) Essential hypertension, benign (401.1) Active confirmed Major Problem Esophageal reflux (230796002) Esophageal reflux (530.81) Active confirmed Major Problem Menopausal symptom (36850166) Symptomatic menopausal or female climacteric states (627.2) Active confirmed Major Problem Gynecological examination normal (664464012078576) Routine gynecological examination (V72.31) Active confirmed Major Problem Screening for malignant neoplasm of colon (540730448) Special screening for malignant neoplasms, colon (V76.51) Active confirmed Major Encounters Encounter Location Date Provider Diagnosis [address] [place] [address] 03/22/2024 Jana Mtz Plan Of Treatment Pending [...] End Date [employer] MEDICARE PPO [address] [place] [address] [id number] MARIA DEL CARMEN GILMORE Self - patient [...] History Surgery Date(Month/Year) Colonoscopy Lab Band Surgery [facility] Knee Replacement 2016 Rt Knee Replacement 06/2017 Rt Knee Replacement Repair 04/23/2021 Hospitalization History Reason Date(Month/Year) See Surgical Hx 4 Vaginal Deliveries
== END 2025-02-23 13:07 | disposition home or self-care (01) ==
LOC: HO.LNP 13:06
PROVIDERS: Visit Provider Internal Medicine
DX: N39.0 Urinary tract infection, site not specified (principal)
CPT/HCPCS: 81001; 87086